=== PATIENT | male | born 1950 | race Caucasian/White ===

== ENCOUNTER 2024-03-11 23:40 | Inpatient (IN) | payer MEDICARE, SELFPAY ==
[2024-03-11] VITALS (8 sets, daily range): BP systolic 125–163; BP diastolic 84–91
[2024-03-11 17:34] LABS: % Basophils 0.3 % (0-2); % Eosinophils 0.8 % (0-6); % Immature Granulocytes 0.7 % (0-0.5); % Lymphocytes 9.6 % (20.5-51.1); % Monocytes 12.7 % (1.7-9.3); % Neutrophils 75.9 % (42.2-75.2); Absolute Basophils 0.1 10^3/uL (0-0.2); Absolute Eosinophils 0.1 10^3/uL (0-0.7); Absolute Immature Granulocytes 0.1 10^3/uL (0-0.05); Absolute Lymphocytes 1.4 10^3/uL (1.2-3.4); Absolute Monocytes 1.9 10^3/uL (0.1-0.6); Absolute Neutrophils 11.2 10^3/uL (1.4-6.5); Hematocrit 39.7 % (39.0-52.0); Hemoglobin 14.2 g/dL (13.0-18.0); Mean Corp Hgb Conc. 35.8 g/dL (33.0-37.0); Mean Corpuscular Hgb 30.2 pg (27.0-31.0); Mean Corpuscular Volume 84.5 fL (80.0-94.0); Mean Platelet Volume 8.9 fL (7.4-10.4); Nucleated Red Blood Cells % 0 % (-); Platelet Count 273 10^3/uL (130-400); Red Cell Dist. Width 13.8 % (11.5-14.5); White Blood Cell Count 14.8 10^3/uL (4.8-10.8)
[2024-03-11 17:48] LABS: ALT (SGPT) 28 U/L (0-50); AST (SGOT) 39 U/L (17-59); Albumin 4.6 g/dl (3.5-5.0); Alkaline Phosphatase 85 U/L (38-126); Blood Urea Nitrogen 24 mg/dl (9-20); Calcium 9.5 mg/dl (8.4-10.2); Carbon Dioxide 26 mmol/L (22-30); Chloride 87 mmol/L (98-107); Glucose 148 mg/dl (70-99); Potassium 4.3 mmol/L (3.5-5.1); Sodium 123 mmol/L (135-145); Total Bilirubin 0.8 mg/dl (0.2-1.3); Total Protein 7.5 g/dl (6.3-8.2); eGFR > 60.00
[2024-03-11 17:54] LABS: COVID-19 Antigen Negative (Negative)
--- NOTE | 2024-03-11 18:46 | ED.GENMED ---
History of Present Illness
<Mata Quintana MD, Resident - Last Filed: 03/11/24 22:56>
General
Chief Complaint: Weakness
Time Seen by Provider: 03/11/24 18:14
History of Present Illness
History of Present Illness:
83-year-old male with 2 history of schizoaffective disorder, mental retardation, hypertension? presented to the ED from an assisted living facility with c/o of weakness. Patient is noted to answer any questions. The only information that we have
is the patient was ambulating on his own without a walker or a cane but for the past couple days he has been using a cane. Patient also some crusting in the right eye with mild mucopurulent discharge. Patient's cousin is here and she states that
the patient had a fall yesterday, no head trauma no injury. She also states that he has a cough for past couple days.
Phy Exam
<Mata Quintana MD, Resident - Last Filed: 03/11/24 22:56>
Physical Exam
Physical Exam:
73-year-old obese male, mentally retarded, unable to answer questions.
Eye Exam
Eye Exam: PERRL
Conjunctival Changes: right: purulent discharge and local crusting
Cardiovascular Exam
Cardiovascular Exam: regular rate/rhythm and other
Pulmonary Exam
Pulmonary Exam: no respiratory distress, no crackles and other (course breath sounds on the left )
Gastrointestinal Exam
Gastrointestinal Exam: normal bowel sounds, non tender, soft and non distended
Psychiatric Exam
Psychiatric Exam: normal mood/affect and other
Course
<Mata Quintana MD, Resident - Last Filed: 03/11/24 22:56>
Orders/Labs/Results
Orders:
Orders
03/11/24 17:23
CR Chest - 2 Views Urgent
Comment:
Reason For Exam: wheezing
03/11/24 17:25
COVID-19 Antigen Urgent
Source: Nasal Swab
Complete Blood Count/With Diff Urgent
Comprehensive Metabolic Panel Urgent
Influenza A+B Rapid Molecular Urgent
BRIDGETTE Source: Nasal Swab
Specimen Description:
03/11/24 18:03
ECG [Electrocardiogram (*1)] Urgent
Reason for Study: Fatigue / Weakness
EKG- Treatment ONCE
03/11/24 19:33
Add On- LAB Urgent
Tests Added?: lactate
Lactic Acid Urgent
Blood Culture Urgent
BRIDGETTE Source: Blood/Venous
Specimen Description:
03/11/24 19:34
Cefepime HCl [Maxipime] 2,000 mg IV NOW STA
03/11/24 19:36
CT Head W/o Iv Contrast Urgent
Comment:
Reason For Exam: Fall
03/11/24 22:05
Urinalysis Urgent
Date Specimen was Collected: 03/11/24
Time Specimen was Collected: 18:43
Abnormal Lab Results
03/11/24
17:25
WBC 14.8 H 10^3/uL
(4.8-10.8)
Abs Immat Gran (auto) 0.1 H 10^3/uL
(0-0.05)
Absolute Neuts (auto) 11.2 H 10^3/uL
(1.4-6.5)
Absolute Monos (auto) 1.9 H 10^3/uL
(0.1-0.6)
Immature Gran % 0.7 H %
(0-0.5)
Neutrophils % 75.9 H %
(42.2-75.2)
Lymphocytes % 9.6 L %
(20.5-51.1)
Monocytes % 12.7 H %
(1.7-9.3)
Sodium 123 L mmol/L
(135-145)
Chloride 87 L mmol/L
(98-107)
BUN 24 H mg/dl
(9-20)
Glucose 148 H mg/dl
(70-99)
03/11/24 17:25
03/11/24 17:25
Vital Signs
Initial and Last Documented VS:
Initial Vital Signs
Temp Pulse Resp BP Pulse Ox
99.1 F 98 20 163/91 95
03/11/24 17:14 03/11/24 17:14 03/11/24 17:14 03/11/24 17:14 03/11/24 17:14
Last Documented Vital Signs
Temp Pulse Resp BP Pulse Ox
99.1 F 89 23 140/84 91
03/11/24 17:14 03/11/24 22:00 03/11/24 22:00 03/11/24 22:00 03/11/24 22:00
<Celia Bravo, DO - Last Filed: 03/11/24 19:36>
Orders/Labs/Results
Orders:
Orders
03/11/24 17:23
CR Chest - 2 Views Urgent
Comment:
Reason For Exam: wheezing
03/11/24 17:25
COVID-19 Antigen Urgent
Source: Nasal Swab
Complete Blood Count/With Diff Urgent
Comprehensive Metabolic Panel Urgent
Influenza A+B Rapid Molecular Urgent
BRIDGETTE Source: Nasal Swab
Specimen Description:
03/11/24 18:03
ECG [Electrocardiogram (*1)] Urgent
Reason for Study: Fatigue / Weakness
EKG- Treatment ONCE
03/11/24 19:33
Add On- LAB Urgent
Tests Added?: lactate
Lactic Acid Urgent
Blood Culture Urgent
BRIDGETTE Source: Blood/Venous
Specimen Description:
03/11/24 19:34
Cefepime HCl [Maxipime] 2,000 mg IV NOW STA
03/11/24 19:36
CT Head W/o Iv Contrast Urgent
Comment:
Reason For Exam: Fall
03/11/24 22:05
Urinalysis Urgent
Date Specimen was Collected: 03/11/24
Time Specimen was Collected: 18:43
Abnormal Lab Results
03/11/24
17:25
WBC 14.8 H 10^3/uL
(4.8-10.8)
Abs Immat Gran (auto) 0.1 H 10^3/uL
(0-0.05)
Absolute Neuts (auto) 11.2 H 10^3/uL
(1.4-6.5)
Absolute Monos (auto) 1.9 H 10^3/uL
(0.1-0.6)
Immature Gran % 0.7 H %
(0-0.5)
Neutrophils % 75.9 H %
(42.2-75.2)
Lymphocytes % 9.6 L %
(20.5-51.1)
Monocytes % 12.7 H %
(1.7-9.3)
Sodium 123 L mmol/L
(135-145)
Chloride 87 L mmol/L
(98-107)
BUN 24 H mg/dl
(9-20)
Glucose 148 H mg/dl
(70-99)
03/11/24 17:25
03/11/24 17:25
Vital Signs
Initial and Last Documented VS:
Initial Vital Signs
Temp Pulse Resp BP Pulse Ox
99.1 F 98 20 163/91 95
03/11/24 17:14 03/11/24 17:14 03/11/24 17:14 03/11/24 17:14 03/11/24 17:14
Last Documented Vital Signs
Temp Pulse Resp BP Pulse Ox
99.1 F 89 23 140/84 91
03/11/24 17:14 03/11/24 22:00 03/11/24 22:00 03/11/24 22:00 03/11/24 22:00
<Mata Quintana MD, Resident - Last Filed: 03/11/24 22:56>
*Critical Care Note
Total Time (30-74mins, 75-104mins- exclusive of procedures): Not Applicable
<Mata Quintana MD, Resident - Last Filed: 03/11/24 22:56>
Update Note
Update Note:
Laboratory analysis show hyponatremia, suspected from volume depletion and dehydration. IV fluids started
-Check UA, urine osmole, urine sodium
-Added chest x-ray, COVID, flu test.
- Chest x ray most suspicious of consolidation with fever and cough most suspicious of CAP.
- Starting patient on IV cefepime 2 g.
- Adding lactate and blood culture to r/o sepsis. --- negative
- Checking CT scan of head because patient had a fall yesterday to r/o hemorrhage.
- Chest x-ray suggestive of mild congestive heart failure
- Plan is to admit the patient due to symptomatic hyponatremia.
Head CT IMPRESSION:
No acute intracranial abnormality noted. Specifically, no acute intracranial hemorrhage. No skull fracture. Stable chronic findings.
CXR
FINDINGS:
Limited. Poor inspiratory effort. Nonstandard, AP projection which is slightly lordotic.
Moderate cardiomegaly, accentuated by described technical factors.
Generalized prominence of bronchovascular markings, suggested mild vascular congestion. Minor peribronchial thickening.
Findings likely reflect congestive heart failure. No focal interstitial or airspace opacity to indicate pneumonia.
Mild transverse prominence of the superior mediastinum, also likely related to technical factors.
No pneumothorax. No pleural effusion.
Asymmetric right shoulder arthritis.
IMPRESSION:
Limited. Poor inspiratory effort. Nonstandard, AP projection which is slightly lordotic. Suspect mild congestive heart failure.
ED Attending Note
<Mata Quintana MD, Resident - Last Filed: 03/11/24 22:56>
-
Portions of this chart may have been created with voice recognition software.� Occasional wrong word or��sound alike� substitutions may have occurred due to the inherent limitations of voice recognition software.
<Celia Bravo DO - Last Filed: 03/11/24 19:36>
ED Attending Note
Patient seen and examined by attending physician: Yes
I performed the substantive portion of visit, reviewed & personally made and approve the management plan that is documented in note by myself or RAFA.: Yes
I performed a history and physical exam of patient and discussed management with resident, I reviewed resident's note and agree with documented findings and plan of care.: Yes
ED Attending Note:
Patient seen and evaluated at bedside, 73-year-old male with severe intellectual disability, nonverbal, presenting to the emergency department for weakness and lethargy. Patient arrives from a group facility. Patient's power of state's attorney, cousin
later arrived to the hospital to give history. Patient reportedly fell yesterday without suspected injury. Today, patient increasingly lethargic, seemed flushed. They checked his temperature, 101. Unclear if he was given an antipyretic. Patient
usually ambulates unassisted, however required a cane to ambulate today. Patient was also hypertensive. No additional history obtained by patient given his chronic medical history. Vital signs significant for mild hypertension.
On exam, patient is resting comfortably, no acute distress. Benign cardiac exam. On pulmonary exam, rhonchorous breath sounds, wet cough. No tenderness to abdomen. No physical signs of trauma, no deformity or swelling to the extremities. No
elicited tenderness to the neck. Cousin at bedside reports that he appears to be at his baseline mental status. In the setting of unwitnessed fall with reported lethargy today, will screen with CT brain. Laboratory analysis has been sent on
patient, show hyponatremia, suspected from volume depletion and dehydration. IV fluids started. Could be contributing to weakness. In addition, patient with leukocytosis. Chest x-ray obtained, shows concern for pneumonia. With leukocytosis and
a source of infection, will send lactic acid to rule out sepsis. Blood pressure remains stable. Will order a blood culture and start on antibiotics. Plan for admission given hyponatremia with pneumonia. COVID and influenza negative.
Discharge Plan
Departure
Patient Disposition: Admit
Date of Disposition: 03/11/24
Time of Disposition: 22:49
Presentation/result/management discussed w/ accepting MD/DO: Hospitalist
Patient with high blood pressure during this ER visit?: Yes
Discharge Problem:
Acute hyponatremia
Prescriptions:
No Action
losartan [Cozaar] 100 MG tablet
100 mg PO DAILY
amlodipine 10 MG tablet
10 mg PO QPM
metoprolol tartrate 50 MG tablet
50 mg PO BID
finasteride 5 MG tablet
5 mg PO QPM
acetaminophen [Tylenol] 325 mg Tablet
650 mg PO Q4HPRN PRN (Reason: mild pain)
diphenoxylate-atropine [Lomotil] 2.5-0.025 mg Tablet
1 tab PO QIDPRN PRN (Reason: diarrhea)
guaifenesin [Robafen] 100 mg/5 mL Liquid
100 mg PO Q4HPRN PRN (Reason: cough)
triamcinolone acetonide 0.1 % Cream
1 applic TOPICAL BIDPRN PRN (Reason: hand eczema)
levothyroxine [Synthroid] 25 mcg Tablet
25 mcg PO DAILY
ibuprofen 200 mg Tablet
400 mg PO Q6HPRN PRN (Reason: mild pain)
Debrox 6.5 % Drops
4 drp OTIC (EAR) MOWEFR@1999
ketoconazole 2 % Cream
1 applic TOPICAL BID
Referrals:
UNKNOWN - PT DOES,NOT KNOW [Family Provider] -
Interventions
Interventions:
*Risk Screen - Suicide Last Done: 03/11/24 17:14
*General Assessment Last Done: 03/11/24 17:14
*Neglect/Abuse Screening Last Done: 03/11/24 17:14
ED- Fall Risk Assessment Last Done: 03/11/24 18:03
ED- Cardiac Assessment Last Done: 03/11/24 18:03
ED- Neurological Assessment Last Done: 03/11/24 18:03
ED- Pulmonary Assessment Last Done: 03/11/24 18:03
Discharge Date and Time
Print Language: ALBANIAN
[2024-03-11] MEDS: MAXIPIME 2000 MG IV (19:47)
[2024-03-11 20:00] LABS: Lactic Acid 0.8 mmol/L (0.7-2.0)
--- NOTE | 2024-03-11 23:36 | ED.GENMED ---
History of Present Illness
General
Chief Complaint: Weakness
Time Seen by Provider: 03/11/24 18:14
Course
Orders/Labs/Results
Orders:
Orders
03/11/24 17:23
CR Chest - 2 Views Urgent
Comment:
Reason For Exam: wheezing
03/11/24 17:25
COVID-19 Antigen Urgent
Source: Nasal Swab
Complete Blood Count/With Diff Urgent
Comprehensive Metabolic Panel Urgent
Serum Osmolality Urgent
Comment: ADD ON
Influenza A+B Rapid Molecular Urgent
BRIDGETTE Source: Nasal Swab
Specimen Description:
03/11/24 18:03
ECG [Electrocardiogram (*1)] Urgent
Reason for Study: Fatigue / Weakness
EKG- Treatment ONCE
03/11/24 19:33
Add On- LAB Urgent
Tests Added?: lactate
Lactic Acid Urgent
Blood Culture Urgent
BRIDGETTE Source: Blood/Venous
Specimen Description:
03/11/24 19:34
Cefepime HCl [Maxipime] 2,000 mg IV NOW STA
03/11/24 19:36
CT Head W/o Iv Contrast Urgent
Comment:
Reason For Exam: Fall
03/11/24 22:05
Urinalysis Urgent
Date Specimen was Collected: 03/11/24
Time Specimen was Collected: 18:43
03/11/24 23:00
Add On- LAB Urgent
Tests Added?: serum osmo
Urine Osmolality Random [Osmolality, Random Urine] Urgent
Urine Sodium Urgent
03/11/24 23:24
NT-proBNP Urgent
Procalcitonin Urgent
PCT Algorithmm Indication: Sepsis
03/11/24 23:27
Add On- LAB Urgent
Tests Added?: BNP
Abnormal Lab Results
03/11/24
17:25
WBC 14.8 H 10^3/uL
(4.8-10.8)
Abs Immat Gran (auto) 0.1 H 10^3/uL
(0-0.05)
Absolute Neuts (auto) 11.2 H 10^3/uL
(1.4-6.5)
Absolute Monos (auto) 1.9 H 10^3/uL
(0.1-0.6)
Immature Gran % 0.7 H %
(0-0.5)
Neutrophils % 75.9 H %
(42.2-75.2)
Lymphocytes % 9.6 L %
(20.5-51.1)
Monocytes % 12.7 H %
(1.7-9.3)
Sodium 123 L mmol/L
(135-145)
Chloride 87 L mmol/L
(98-107)
BUN 24 H mg/dl
(9-20)
Glucose 148 H mg/dl
(70-99)
03/11/24 17:25
03/11/24 17:25
Vital Signs
Initial and Last Documented VS:
Initial Vital Signs
Temp Pulse Resp BP Pulse Ox
99.1 F 98 20 163/91 95
03/11/24 17:14 03/11/24 17:14 03/11/24 17:14 03/11/24 17:14 03/11/24 17:14
Last Documented Vital Signs
Temp Pulse Resp BP Pulse Ox
99.1 F 89 23 140/84 91
03/11/24 17:14 03/11/24 22:00 03/11/24 22:00 03/11/24 22:00 03/11/24 22:00
ED Attending Note
-
Portions of this chart may have been created with voice recognition software.� Occasional wrong word or��sound alike� substitutions may have occurred due to the inherent limitations of voice recognition software.
Discharge Plan
Departure
Patient Disposition: Admit
Date of Disposition: 03/11/24
Time of Disposition: 22:49
Presentation/result/management discussed w/ accepting MD/DO: Hospitalist
Patient with high blood pressure during this ER visit?: Yes
Discharge Problem:
Acute hyponatremia
Prescriptions:
No Action
losartan [Cozaar] 100 MG tablet
100 mg PO DAILY
amlodipine 10 MG tablet
10 mg PO QPM
metoprolol tartrate 50 MG tablet
50 mg PO BID
finasteride 5 MG tablet
5 mg PO QPM
acetaminophen [Tylenol] 325 mg Tablet
650 mg PO Q4HPRN PRN (Reason: mild pain)
diphenoxylate-atropine [Lomotil] 2.5-0.025 mg Tablet
1 tab PO QIDPRN PRN (Reason: diarrhea)
guaifenesin [Robafen] 100 mg/5 mL Liquid
100 mg PO Q4HPRN PRN (Reason: cough)
triamcinolone acetonide 0.1 % Cream
1 applic TOPICAL BIDPRN PRN (Reason: hand eczema)
levothyroxine [Synthroid] 25 mcg Tablet
25 mcg PO DAILY
ibuprofen 200 mg Tablet
400 mg PO Q6HPRN PRN (Reason: mild pain)
Debrox 6.5 % Drops
4 drp OTIC (EAR) MOWEFR@1999
ketoconazole 2 % Cream
1 applic TOPICAL BID
Referrals:
UNKNOWN - PT DOES,NOT KNOW [Family Provider] -
Interventions
Interventions:
*Risk Screen - Suicide Last Done: 03/11/24 17:14
*General Assessment Last Done: 03/11/24 17:14
*Neglect/Abuse Screening Last Done: 03/11/24 17:14
ED- Fall Risk Assessment Last Done: 03/11/24 18:03
ED- Cardiac Assessment Last Done: 03/11/24 18:03
ED- Neurological Assessment Last Done: 03/11/24 18:03
ED- Pulmonary Assessment Last Done: 03/11/24 18:03
Discharge Date and Time
Print Language: GREEK
--- NOTE | 2024-03-11 23:50 | HPS.HSE ---
Addendum entered and electronically signed by Ashlyn Vasquez DO 03/12/24 00:28:
The patient is seen and examined. I have reviewed the patient with Katherine, and agree with her history and physical, assessment, and plan of care as per below. The patient has intellectual disability, he is verbal, and answers questions but does not
recall his history and does not say he has any complaints. He [facility], aw SOB, cough, and generalized weakness.
VSS/AF here, Respiratory status is stable at the time of this examination.
HEENT- conjunctival exudate right eye
Lungs CTA anteriorly b/l
CV reg and mild tachy at 99, b/l LE trace edema, unable to assess JVD nor hepatojugular reflux due to obesity, neck
Neuro no focal deficits
Abd distended, non-tender, no peritoneal signs
Labs reviewed as per below
Na 123
Plan of care as per below
Concern is for Community acquired pneumonia, bacterial pneumonia with systemic inflammatory response.
No known hx of CHF in our system
Plan is to treat infection, add IVF, awaiting urine studies, repeat Na at 4 am, Nephro Cx, blood and sputum cx pending, check a pro-BNP and procalcitonin.
Original Note:
Family Physician
-
Family Physician: NOT KNOW UNKNOWN - PT DOES
Chief Complaint
-
Weakness
History of Present Illness
Patient is a 73 y/o male past medical history of hypertension, BPH, schizoaffective disorder, and moderate intellectual disability who presents with weakness. Patient is a limited historian. He arrives from a [facility] after he was noted to be
more weak than usual and had a temp of 100F. Family was originally present in ED and reported a cough for the past few days. Unfortunately family was not present for my evaluation
Medical History
Past Medical History
Past Medical History: Reports Other
Additional Past Medical History:
Essential Hypertension
BPH
Schizoaffective Disorder
Moderate Intellectual Disability
Past Surgical History: Reports None
Social History
Unable to obtain full social history at this time due to: Other
Living: Other (Longterm)
Family History
Family History: Not pertinent
Allergies / Home Medications
Allergies reflects when Allergies were last updated in [facility].
Home Medications with original date entered in [facility]
Allergy/Medication List:
Allergies
Allergy/AdvReac Type Severity Reaction Status Date / Time
No Known Allergies Allergy Verified 03/11/24 17:13
Home Medications
amlodipine 10 mg tablet 10 mg PO QPM 12/15/21
finasteride 5 mg tablet 5 mg PO QPM 12/15/21
losartan 100 mg tablet (Cozaar) 100 mg PO DAILY 12/15/21
metoprolol tartrate 50 mg tablet 50 mg PO BID 12/15/21
acetaminophen 325 mg tablet (Tylenol) 650 mg PO Q4HPRN PRN mild pain 03/11/24
carbamide peroxide 6.5 % ear drops (Debrox) 4 drp otic (ear) MOWEFR@2000 03/11/24
diphenoxylate-atropine 2.5 mg-0.025 mg tablet (Lomotil) 1 tab PO QIDPRN PRN diarrhea 03/11/24
guaifenesin 100 mg/5 mL oral liquid (Robafen) 100 mg PO Q4HPRN PRN cough 03/11/24
ibuprofen 200 mg tablet 400 mg PO Q6HPRN PRN mild pain 03/11/24
ketoconazole 2 % topical cream 1 applic topical BID both feet 03/11/24
levothyroxine 25 mcg tablet (Synthroid) 25 mcg PO DAILY 03/11/24
triamcinolone acetonide 0.1 % topical cream 1 applic topical BIDPRN PRN hand eczema 03/11/24
Review of Systems
-
A 12 point ROS was completed and negative except as noted: Yes
Constitutional: Reports Fever; Denies Chills
Respiratory: Reports Cough and Trouble Breathing
Cardiac: Denies Chest Pain or Palpitations
Abdomen/GI: Denies Abdominal Pain, Nausea, Vomiting, Diarrhea or Constipated
Physical Exam
Vital Signs
Vital Signs
Temp Pulse Resp BP Pulse Ox
99.1 F 101 26 157/86 92
03/11/24 17:14 03/11/24 23:37 03/11/24 23:37 03/11/24 23:37 03/11/24 23:00
Physical Exam
General: Comfortable and Conversant
HEENT: Anicteric and Moist mucous membranes
Respiratory: Non Labored Respirations and Other (Poor Inspiratory Effort)
Cardiac: S1/S2, Regular Rhythm and Tachycardia (Slightly)
GI: Soft, Non Tender and Other (Protuberant)
Musculoskeletal: No Clubbing, No Cyanosis and Other (Trace Non-Pitting Edema)
Skin: Warm and Dry
Neuro: Awake, Alert, Oriented and Nonfocal/grossly intact
Laboratory Results
-
03/11/24 17:25
03/11/24 17:25
Laboratory Results
Lactic Acid 0.8 mmol/L (0.7-2.0) 03/11/24 19:33
Total Bilirubin 0.8 mg/dl (0.2-1.3) 03/11/24 17:25
AST 39 U/L (17-59) 03/11/24 17:25
ALT 28 U/L (0-50) 03/11/24 17:25
Alkaline Phosphatase 85 U/L (38-126) 03/11/24 17:25
Data Reviewed
-
Diagnostic Radiology: Report Reviewed by me
Lab Data: Labs Reviewed by me
Impression/Plan
-
Sepsis secondary to possible pneumonia
-Continue empiric ceftriaxone and doxycycline
-Check procalcitonin
-Await urinalysis
Hyponatremia
-Check BNP, Urine Sodium and Urine Osmo
-Give IVFs overnight in setting of sepsis
-Recheck labs in AM
Conjunctivitis
-Start erythromycin ointment
Essential Hypertension
-Continue amlodipine, metoprolol and losartan
BPH
-Continue Proscar
Schizoaffective Disorder
-Appears patient was previously on Seroquel, but no longer
-Monitor for mood/behavior changes during hospitalization
DVT proph: Lovenox
Code Status: Full Code
[2024-03-12] VITALS (10 sets, daily range): BP systolic 127–158; BP diastolic 74–94; PULSE 88; O2SAT 95; BMI 34.5
[2024-03-12 00:05] LABS: Osmolality Serum 263 mOsm/kg (275-300)
[2024-03-12] MEDS: NSS 1000 IV (00:23)
[2024-03-12] MEDS: LOPRESSOR 50 MG PO ×3 (00:30→20:07)
[2024-03-12 00:35] LABS: Urine Albumin 2+ (Neg - Trace); Urine Bilirubin Negative (Negative); Urine Character Clear (Clear); Urine Color Yellow; Urine Glucose Negative (Negative); Urine Ketone Trace (Negative); Urine Leukocyte Negative (Negative); Urine Nitrite Negative (Negative); Urine Occult Blood 1+ (Negative); Urine Specific Gravity 1.015 (<1.030); Urine Urobilinogen Negative (Neg - 1+); Urine pH 6.5 (5.0-9.0)
[2024-03-12 00:39] LABS: Osmolality Urine 499 mOsm/kg (300-900)
[2024-03-12 00:50] LABS: Urine Bacteria Few (Negative); Urine Sperm Seen; Urine White Cell 0-2 /HPF (0-5)
[2024-03-12 00:52] LABS: NT-proBNP 827 pg/ml
[2024-03-12 01:07] LABS: Procalcitonin 0.08 ng/ml (0.0-0.25)
[2024-03-12 01:49] LABS: Urine Sodium 50 mmol/L (30-90)
--- NOTE | 2024-03-12 02:00 | PTCARENOTE ---
Pt arrived to unit from ED and was a pullover assist from stretcher into bed. Pt is AAOx1 to self, no complaints of pain at this time. Pt given call toro but remains confused, bed alarm in place. BP on admission 158/94, HR 91, 93% on room air and
98.3F, respirations 22.
--- NOTE | 2024-03-12 04:31 | PTCARENOTE ---
Pt on a bed alarm and standing at bedside to urinate. Pt urinated on floor and was redirected back into bed and linens changed. Med Sitter now in place, bed in lowest position and bed alarm remains in place.
[2024-03-12] MEDS: SYNTHROID 25 MCG PO (06:02)
[2024-03-12 08:07] LABS: Hematocrit 36.6 % (39.0-52.0); Mean Corp Hgb Conc. 35.5 g/dL (33.0-37.0); Mean Corpuscular Hgb 30.1 pg (27.0-31.0); Mean Corpuscular Volume 84.7 fL (80.0-94.0); Mean Platelet Volume 9.3 fL (7.4-10.4); Platelet Count 261 10^3/uL (130-400); Red Blood Cell Count 4.32 10^6/uL (4.70-6.10); Red Cell Dist. Width 13.7 % (11.5-14.5); White Blood Cell Count 11.7 10^3/uL (4.8-10.8)
[2024-03-12] MEDS: ERYTHROMYCIN 0.5% OPHTHALMIC OINTMENT 1 APPLIC OPHTH ×4 (08:53→22:42)
[2024-03-12] MEDS: ROCEPHIN 1000 MG IV (08:54)
[2024-03-12] MEDS: STERILE WATER FOR INJECTION 10 ML IV (08:54)
[2024-03-12 08:55] LABS: Blood Urea Nitrogen 18 mg/dl (9-20); Calcium 8.3 mg/dl (8.4-10.2); Carbon Dioxide 22 mmol/L (22-30); Chloride 94 mmol/L (98-107); Estimated Creatinine Clearance 114 ml/min; Glucose 114 mg/dl (70-99); Potassium 3.8 mmol/L (3.5-5.1); Sodium 126 mmol/L (135-145); eGFR > 60.00
[2024-03-12] MEDS: COZAAR 100 MG PO (08:56)
[2024-03-12] MEDS: VIBRAMYCIN 100 MG PO ×2 (08:56→20:07)
--- NOTE | 2024-03-12 11:14 | W.CON.NEPH ---
Consultation
-
Date/Time Consultation Requested: 03/12/24 1:34AM
Date/Time Consultation Performed: 03/12/24 11:14AM
Requesting Provider: Katherine Leal
Performing Provider: Esther Hodge
Reason for Consultation: hyponatremia
Medical History
-
Chief Complaint: hyponatremia
History of Present Illness:
Mr. Lucero is a 73 YOM with PMH of intellectual disability, HTN, BPH, schizoaffective disorder who presents from his senior living with a temperature and weakness. History is obtained from chart review as the patient is not a good narrator. Apparently,
he was noted to have a mild fever in the ER as well. There was some concern for cough as well. Patient has no complaints today, states that he feels well.
Past Medical History
Essential Hypertension
BPH
Schizoaffective Disorder
Moderate Intellectual Disability
Past Medical History: Other
Past Surgical History: None
Social History
unable to obtain full social history due to disability
Living: Other (Alf)
Family History
Family History: Not Pertinent
Allergies / Home Medications
Allergy/AdvReac Type Severity Reaction Status Date / Time
No Known Allergies Allergy Verified 03/11/24 17:13
�Medication �Instructions �Recorded �Confirmed �Type
amlodipine 10 mg tablet 10 mg PO QPM Blood Pressure 12/15/21 03/11/24 History
finasteride 5 mg tablet 5 mg PO QPM Urinary Issue 12/15/21 03/11/24 History
losartan 100 mg tablet (Cozaar) 100 mg PO DAILY Blood Pressure 12/15/21 03/11/24 History
metoprolol tartrate 50 mg tablet 50 mg PO BID Blood Pressure 12/15/21 03/11/24 History
acetaminophen 325 mg tablet 650 mg PO Q4HPRN PRN mild pain 03/11/24 03/11/24 History
(Tylenol)
carbamide peroxide 6.5 % ear drops 4 drp otic (ear) [id number]@[id number]/11/24 03/11/24 History
(Debrox)
diphenoxylate-atropine 2.5 1 tab PO QIDPRN PRN diarrhea 03/11/24 03/11/24 History
mg-0.025 mg tablet (Lomotil)
guaifenesin 100 mg/5 mL oral 100 mg PO Q4HPRN PRN cough 03/11/24 03/11/24 History
liquid (Robafen)
ibuprofen 200 mg tablet 400 mg PO Q6HPRN PRN mild pain 03/11/24 03/11/24 History
ketoconazole 2 % topical cream 1 applic topical BID both feet 03/11/24 03/11/24 History
levothyroxine 25 mcg tablet 25 mcg PO DAILY Thyroid 03/11/24 03/11/24 History
(Synthroid)
triamcinolone acetonide 0.1 % 1 applic topical BIDPRN PRN hand 03/11/24 03/11/24 History
topical cream eczema
Review of Systems
-
Unable to obtain full review of systems at this time due to: Other (intellectual disability)
History Source: Patient
All other systems: Negative unless noted
Physical Exam
Vital Signs
Vital Signs
Temp Pulse Resp BP Pulse Ox
97.5 F 84 17 132/77 96
03/12/24 10:48 03/12/24 10:48 03/12/24 10:48 03/12/24 10:48 03/12/24 10:48
Lab Results
WBC 11.7 10^3/uL (4.8-10.8) H 03/12/24 07:23
RBC 4.32 10^6/uL (4.70-6.10) L 03/12/24 07:23
Hgb 13.0 g/dL (13.0-18.0) 03/12/24 07:23
Hct 36.6 % (39.0-52.0) L 03/12/24 07:23
Plt Count 261 10^3/uL (130-400) 03/12/24 07:23
Sodium 126 mmol/L (135-145) L 03/12/24 07:23
Potassium 3.8 mmol/L (3.5-5.1) 03/12/24 07:23
Chloride 94 mmol/L (98-107) L 03/12/24 07:23
Carbon Dioxide 22 mmol/L (22-30) 03/12/24 07:23
BUN 18 mg/dl (9-20) 03/12/24 07:23
Creatinine 0.6 mg/dL (0.7-1.3) L 03/12/24 07:23
eGFR > 60.00 03/12/24 07:23
Glucose 114 mg/dl (70-99) H 03/12/24 07:23
Calcium 8.3 mg/dl (8.4-10.2) L 03/12/24 07:23
Gia-Y-Gmcmjpnfqmz Pept 827 pg/ml 03/12/24 00:17
Albumin 4.6 g/dl (3.5-5.0) 03/11/24 17:25
Physical Exam
General: Awake, Alert, Oriented, No Distress and Nontoxic
HEENT: PERRL, EOMI, Anicteric, Ear/Nose Intact, Hearing Normal, Oropharynx Clear/Moist, Dentition Intact, Facial Symmetry, Neck Supple, Trachea Midline, No JVD, No Thyromegaly and Other (red conjunctiva)
Respiratory: Normal Excursion, Nonlabored Respirations and Other (coarse breath sounds bilaterally)
Cardiac: S1/S2, Regular Rate/Rhythm and No Edema
Breast: N/A
Abdomen: Soft, Nontender, Nondistended, Normal Bowel Sounds and No Hepatosplenomegaly
Rectal: Deferred by Provider
Genito-urinary: No Costovertebral Tender
Musculoskeletal: No Clubbing, No Cyanosis and No Edema
Skin: No Rash, Warm, Dry, No Clubbing, No Cyanosis, Normal Turgor and No Bruising
Neuro: Nonfocal/Grossly Intact and Other (I am assuming this is his baseline)
Hematologic/Lymphatic: No Cervical Lymphadenopathy
Psych: Mood/afflect pleasant and Appropriate
Data Reviewed
-
Radiology: Image Personally Visualized and interpreted (CXR on 03/11: LLL PNA?)
Labs: Labs Reviewed by me
Old Records: Reviewed
Assessment/Plan
-
Assessment:
PNA
Sepsis
hyponatremia
Conjunctivitis
HTN
BPH
Schizoaffective disorder
Plan:
- patient being empirically treated for PNA with ctx and doxycycline
- Uosm 499, Jez 50 --> indicative of SIADH (likely in the setting of active PNA)
- currently, the patient is being given normal saline at 75cc/hr but Na improved to 126. if complete SIADH, would have expected a drop
- hold normal saline and transition to HTS. goal sodium >130 by tomorrow AM
--- NOTE | 2024-03-12 12:02 | W.PN.HOSP.TC ---
Addendum entered and electronically signed by Jesus Hernandez MD 03/12/24 13:18:
I discussed case with clinical pharmacist who recommended holding off on Vancomycin (at least until the repeat blood cultures come back), and also given the rapid diagnostics were negative for MSSA and MRSA, so positive blood culture is likely a
CoNS bacteria. Vancomycin will be discontinued.
Original Note:
Today's Communication/Plan
-
Blood cultures positive
Repeat blood cultures ordered, Vancomycin added
3% saline as per nephrology, evaluation appreciated
Assessment / Plan
Assessment / Plan
Physical Exam
General: Not in acute distress.
HEENT: Normocephalic.
Respiratory: Coarse breath sounds bilaterally
Cardiac: S1/S2, Regular Rate and Rhythm
GI: Soft, Non Tender and Other (Protuberant). Positive bowel sounds.
Musculoskeletal: No Cyanosis and Other (Trace Non-Pitting Edema)
Skin: Warm and Dry
Neuro: Awake, Alert, Oriented x1 (person)

Assessment/Plan
Sepsis secondary to possible pneumonia
Blood Cultures with Gram Positive Cocci in Clusters
-Continue empiric ceftriaxone and doxycycline
-Also repeat blood cultures given initially positive blood cultures
-Also added Vancomycin given preliminary blood culture results
-Procalcitonin low at 0.08
-Urinalysis showed some RBC's, and a few bacteria, otherwise not strongly suggestive of UTI
Hyponatremia
-Received IVFs
-Nephrology consulted, recommendations appreciated
-Now getting 3% Saline
-Recheck labs in AM
Conjunctivitis
-Erythromycin ointment
Essential Hypertension
-Continue amlodipine, metoprolol and losartan
BPH
-Continue Proscar
Schizoaffective Disorder
-Appears patient was previously on Seroquel, but no longer
-Monitor for mood/behavior changes during hospitalization
DVT prophylaxis: Lovenox
Code Status: Full Code
Anticipated Discharge: > 48 hours
Subjective/Interval History
-
Date of Service: March 12, 2024
Patient was seen and examined. He reported no new symptoms or complaints. Overnight, patient stood at bedside to urinate; he urinated on the floor and was redirected back into bed and linens changed. Med Sitter was put in place, bed placed in lowest
position and bed alarm remained in place.
Objective Data
-
Labs:
Laboratory Results
03/12/24
07:23
WBC 11.7 H
Hgb 13.0
Hct 36.6 L
Plt Count 261
Sodium 126 L
Potassium 3.8
Chloride 94 L
Carbon Dioxide 22
BUN 18
Creatinine 0.6 L
Glucose 114 H
Calcium 8.3 L
Vital Signs:
Vital Signs
Temp Pulse Resp BP Pulse Ox
97.5 F 84 17 132/77 96
03/12/24 10:48 03/12/24 10:48 03/12/24 10:48 03/12/24 10:48 03/12/24 10:48
I&O
03/11/24 03/12/24 03/13/24
06:59 06:59 06:59
Intake Total 420 / 420
Output Total 300 / 300
Balance -300 / -300 420 / 420
[2024-03-12] MEDS: SODIUM CHLORIDE 3% 250 IV (12:14)
--- NOTE | 2024-03-12 12:33 | CM ---
CM spoke with Marii Lema RN from [facility] (main #- [phone], nursing #- [phone], fax #- [phone]). Patient resides in [facility]. Per Marii, patient has been a resident since 2009. Marii reports
facility will need updated clinicals and PT/OT notes to review before patient can return to facility, reports they typically can not accept a discharge over the weekend. Marii requesting PT/OT to see patient, reports patient could likely benefit from
VN services. Per Marii, patient ambulates without a device but does tend to 'shuffle', patient has not had VN or SNF in past. Marii reports patient typically toilets independently, requires assistance for dressing, showering. Patient PCP [facility],
pharmacy used for new meds upon discharge would be [facility] in [place], otherwise uses [facility]. TT sent to Hospitalist requesting PT/OT. CM will continue to follow for all discharge planning needs.
Plan; return to [facility], will need clinicals sent to facility prior to discharge to ensure can accept patient back, watch for VN needs.
[facility]:
main #- [phone], nursing #- [phone], fax #- [phone])
[2024-03-12] MEDS: LOVENOX 40 MG SC (17:06)
[2024-03-12] MEDS: PROSCAR 5 MG PO (17:11)
[2024-03-12] MEDS: NORVASC 10 MG PO (17:11)
[2024-03-13] VITALS (8 sets, daily range): BP systolic 119–149; BP diastolic 74–95; PULSE 78–83; O2SAT 93–95; BMI 34.0
--- NOTE | 2024-03-13 03:08 | DOWNTIME ---
There was a [email or web address] Client [employer]ing Teacher Downtime on 03/13/2024 from 0100 to 03/13/2024 at 0255. Downtime documentation of patient's care, including medication administrations, has been reconciled in the electronic record per guidelines. Refer to the
patient's paper chart under the miscellaneous tab to see printed paper medication records and downtime forms.
[2024-03-13] MEDS: SYNTHROID 25 MCG PO (06:06)
[2024-03-13] MEDS: COZAAR PO (08:22)
[2024-03-13] MEDS: LOPRESSOR 50 MG PO ×2 (08:22→20:41)
[2024-03-13] MEDS: VIBRAMYCIN 100 MG PO ×2 (08:22→20:40)
[2024-03-13] MEDS: STERILE WATER FOR INJECTION 10 ML IV (08:23)
[2024-03-13] MEDS: ROCEPHIN 1000 MG IV (08:23)
[2024-03-13] MEDS: ERYTHROMYCIN 0.5% OPHTHALMIC OINTMENT 1 APPLIC OPHTH ×4 (08:23→22:11)
[2024-03-13 09:20] LABS: % Basophils 0.6 % (0-2); % Eosinophils 1.3 % (0-6); % Immature Granulocytes 0.6 % (0-0.5); % Lymphocytes 12.7 % (20.5-51.1); % Monocytes 11.7 % (1.7-9.3); % Neutrophils 73.1 % (42.2-75.2); Absolute Basophils 0.1 10^3/uL (0-0.2); Absolute Eosinophils 0.1 10^3/uL (0-0.7); Absolute Immature Granulocytes 0.1 10^3/uL (0-0.05); Absolute Lymphocytes 1.4 10^3/uL (1.2-3.4); Absolute Monocytes 1.3 10^3/uL (0.1-0.6); Absolute Neutrophils 7.9 10^3/uL (1.4-6.5); Hematocrit 38.8 % (39.0-52.0); Hemoglobin 13.8 g/dL (13.0-18.0); Mean Corp Hgb Conc. 35.6 g/dL (33.0-37.0); Mean Corpuscular Hgb 30.7 pg (27.0-31.0); Mean Corpuscular Volume 86.2 fL (80.0-94.0); Mean Platelet Volume 9.4 fL (7.4-10.4); Nucleated Red Blood Cells % 0 % (-); Platelet Count 279 10^3/uL (130-400); Red Cell Dist. Width 13.8 % (11.5-14.5); White Blood Cell Count 10.8 10^3/uL (4.8-10.8)
[2024-03-13 09:57] LABS: Blood Urea Nitrogen 15 mg/dl (9-20); Calcium 8.6 mg/dl (8.4-10.2); Carbon Dioxide 24 mmol/L (22-30); Chloride 95 mmol/L (98-107); Estimated Creatinine Clearance 113 ml/min; Glucose 108 mg/dl (70-99); Potassium 3.7 mmol/L (3.5-5.1); Sodium 128 mmol/L (135-145); eGFR > 60.00
--- NOTE | 2024-03-13 11:14 | W.PN.NEPH.PH ---
Today's Communication / Plan
-
FR
Assessment/Plan
-
Assessment:
PNA
Sepsis
hyponatremia
Conjunctivitis
HTN
BPH
Schizoaffective disorder
Plan:
fluid restriction
follow BMP
samsca
-
-
Date of Service: March 13, 2024
CC / HPI / ROS
-
Chief Complaint:
hyponatremia
History of Present Illness:
Na up to 128
BP stable
on abx for PNA
Review of Systems:
no CP/SOB
Labs
-
Labs:
WBC 10.8 10^3/uL (4.8-10.8) 03/13/24 08:34
RBC 4.50 10^6/uL (4.70-6.10) L 03/13/24 08:34
Hgb 13.8 g/dL (13.0-18.0) 03/13/24 08:34
Hct 38.8 % (39.0-52.0) L 03/13/24 08:34
Plt Count 279 10^3/uL (130-400) 03/13/24 08:34
Sodium 128 mmol/L (135-145) L 03/13/24 08:34
Potassium 3.7 mmol/L (3.5-5.1) 03/13/24 08:34
Chloride 95 mmol/L (98-107) L 03/13/24 08:34
Carbon Dioxide 24 mmol/L (22-30) 03/13/24 08:34
BUN 15 mg/dl (9-20) 03/13/24 08:34
Creatinine 0.6 mg/dL (0.7-1.3) L 03/13/24 08:34
eGFR > 60.00 03/13/24 08:34
Glucose 108 mg/dl (70-99) H 03/13/24 08:34
Calcium 8.6 mg/dl (8.4-10.2) 03/13/24 08:34
Dye-M-Lhfrjcvpdsd Pept 827 pg/ml 03/12/24 00:17
Albumin 4.6 g/dl (3.5-5.0) 03/11/24 17:25
Physical Exam
-
Vital Signs:
Vital Signs
Temp Pulse Resp BP Pulse Ox
97.7 F 96 16 119/85 93
03/13/24 07:00 03/13/24 07:00 03/13/24 07:00 03/13/24 07:00 03/13/24 07:00
Cardiovascular:: Regular rate and rhythm
Respiratory:: Bilateral: Coarse
Lung Excursion:: Normal
Abdomen:: Nontender and Soft
Bowel Sounds:: Normal
Extremity Edema:: None: Bilateral:
[2024-03-13] MEDS: SAMSCA 15 MG PO (12:21)
[2024-03-13] MEDS: LOVENOX 40 MG SC (17:14)
[2024-03-13] MEDS: PROSCAR 5 MG PO (17:14)
[2024-03-13] MEDS: NORVASC 10 MG PO (17:15)
--- NOTE | 2024-03-13 17:38 | W.PN.HOSP.TC ---
Today's Communication/Plan
-
Improving
Hyponatremia treatment and antibiotics
Assessment / Plan
Assessment / Plan
Physical Exam
General: Not in acute distress.
HEENT: Normocephalic.
Respiratory: Coarse breath sounds bilaterally
Cardiac: S1/S2, Regular Rate and Rhythm
GI: Soft, Non Tender and Other (Protuberant). Positive bowel sounds.
Musculoskeletal: No Cyanosis and Other (Trace Non-Pitting Edema)
Skin: Warm and Dry
Neuro: Awake, Alert, Oriented x1 (person)

Assessment/Plan
Sepsis secondary to possible pneumonia
Blood Cultures with CoNS -- suspected contamination
Leukocytosis - RESOLVED
-Continue empiric ceftriaxone and doxycycline
-Also repeat blood cultures given initially positive blood cultures
-Procalcitonin low at 0.08
-Urinalysis showed some RBC's, and a few bacteria, otherwise not strongly suggestive of UTI
Hyponatremia
-Nephrology consulted, recommendations appreciated
-PO Fluid Restriction
-Received 3% Saline
-Recheck labs in AM
Conjunctivitis
-Erythromycin ointment
Essential Hypertension
-Continue amlodipine, metoprolol and losartan
BPH
-Continue Proscar
Schizoaffective Disorder
-Appears patient was previously on Seroquel, but no longer
-Monitor for mood/behavior changes during hospitalization
DVT prophylaxis: Lovenox
Code Status: Full Code
I spoke to patient's family authorized contact Svetlana today at phone number [phone]. All questions and concerns were answered to satisfaction.
Anticipated Discharge: 24 - 48 hours
Subjective/Interval History
-
Date of Service: March 13, 2024
Patient was seen and examined. He denied any new symptoms or complaints.
Objective Data
-
Labs:
Laboratory Results
03/13/24
08:34
WBC 10.8
Hgb 13.8
Hct 38.8 L
Plt Count 279
Sodium 128 L
Potassium 3.7
Chloride 95 L
Carbon Dioxide 24
BUN 15
Creatinine 0.6 L
Glucose 108 H
Calcium 8.6
Vital Signs:
Vital Signs
Temp Pulse Resp BP Pulse Ox
97.7 F 82 20 137/74 95
03/13/24 15:27 03/13/24 15:27 03/13/24 15:27 03/13/24 15:27 03/13/24 15:27
I&O
03/12/24 03/13/24 03/14/24
06:59 06:59 06:59
Intake Total 1890 / 1890 100 / 100
Output Total 300 / 300 900 / 900
Balance -300 / -300 990 / 990 100 / 100
[2024-03-14 03:24] VITALS: BP 149/90
[2024-03-14 06:00] VITALS: BMI 33.3
[2024-03-14] MEDS: SYNTHROID 25 MCG PO (06:30)
[2024-03-14 07:15] VITALS: BP 157/89
[2024-03-14] MEDS: STERILE WATER FOR INJECTION 10 ML IV (08:02)
[2024-03-14] MEDS: ERYTHROMYCIN 0.5% OPHTHALMIC OINTMENT 1 APPLIC OPHTH ×4 (08:03→21:15)
[2024-03-14] MEDS: VIBRAMYCIN 100 MG PO ×2 (08:03→20:27)
[2024-03-14] MEDS: ROCEPHIN 1000 MG IV (08:03)
[2024-03-14] MEDS: LOPRESSOR 50 MG PO ×2 (08:03→20:27)
[2024-03-14] MEDS: COZAAR 100 MG PO (08:03)
[2024-03-14 09:24] LABS: % Basophils 0.6 % (0-2); % Eosinophils 1.8 % (0-6); % Immature Granulocytes 0.9 % (0-0.5); % Lymphocytes 13.4 % (20.5-51.1); % Monocytes 11.2 % (1.7-9.3); % Neutrophils 72.1 % (42.2-75.2); Absolute Basophils 0.1 10^3/uL (0-0.2); Absolute Eosinophils 0.2 10^3/uL (0-0.7); Absolute Immature Granulocytes 0.1 10^3/uL (0-0.05); Absolute Lymphocytes 1.3 10^3/uL (1.2-3.4); Absolute Monocytes 1.1 10^3/uL (0.1-0.6); Hematocrit 43.1 % (39.0-52.0); Mean Corp Hgb Conc. 34.8 g/dL (33.0-37.0); Mean Corpuscular Hgb 30.3 pg (27.0-31.0); Mean Corpuscular Volume 87.1 fL (80.0-94.0); Mean Platelet Volume 9.1 fL (7.4-10.4); Nucleated Red Blood Cells % 0 % (-); Platelet Count 314 10^3/uL (130-400); Red Blood Cell Count 4.95 10^6/uL (4.70-6.10); Red Cell Dist. Width 14.1 % (11.5-14.5); White Blood Cell Count 9.8 10^3/uL (4.8-10.8)
[2024-03-14 10:04] LABS: Blood Urea Nitrogen 16 mg/dl (9-20); Carbon Dioxide 25 mmol/L (22-30); Chloride 98 mmol/L (98-107); Estimated Creatinine Clearance 96 ml/min; Glucose 106 mg/dl (70-99); Potassium 3.9 mmol/L (3.5-5.1); Sodium 133 mmol/L (135-145); eGFR > 60.00
[2024-03-14 11:21] VITALS: BP 132/68
--- NOTE | 2024-03-14 12:29 | W.PN.HOSP.TC ---
Today's Communication/Plan
-
Switched to oral antibiotics
Check echo
Sodium improving
Anticipate discharge within the next 1 to 2 days
Assessment / Plan
Assessment / Plan
Physical Exam
General: Not in acute distress.
HEENT: Normocephalic.
Respiratory: CTAB
Cardiac: S1/S2, Regular Rate and Rhythm
GI: Soft, Non Tender and Other (Protuberant). Positive bowel sounds.
Musculoskeletal: No Cyanosis and Other (Trace Non-Pitting Edema)
Skin: Warm and Dry
Neuro: Awake, Alert, Oriented x1 (person)

Assessment/Plan
Sepsis secondary to possible pneumonia
Blood Cultures with CoNS -- suspected contamination
Leukocytosis - RESOLVED
-Continue doxycycline
-Completed Ceftriaxone
-Started Cefdinir 300 mg BID on 03/14/24
-Also repeat blood cultures given initially positive blood cultures -- negative growth to date
-Procalcitonin low at 0.08
-Urinalysis showed some RBC's, and a few bacteria, otherwise not strongly suggestive of UTI
Hyponatremia - IMPROVED
-Nephrology consulted, recommendations appreciated
-PO Fluid Restriction
-Received 3% Saline
-Recheck labs in AM
Suggestion of Mild Congestive Heart Failure on Chest X-ray
-Check echocardiogram
Conjunctivitis
-Erythromycin ointment
Essential Hypertension
-Continue amlodipine, metoprolol and losartan
BPH
-Continue Proscar
Schizoaffective Disorder
-Appears patient was previously on Seroquel, but no longer
-Monitor for mood/behavior changes during hospitalization
DVT prophylaxis: Lovenox
Code Status: Full Code
On 03/13/24, I spoke to patient's family authorized contact Svetlana today at phone number [phone]. All questions and concerns were answered to satisfaction.
Anticipated Discharge: 24 - 48 hours
Subjective/Interval History
-
Date of Service: March 14, 2024
Patient was seen and examined. He was eating breakfast and denied any new symptoms or complaints.
Objective Data
-
Labs:
Laboratory Results
03/14/24 03/14/24
08:38 08:48
WBC 9.8
Hgb 15.0
Hct 43.1
Plt Count 314
Sodium 133 L
Potassium 3.9
Chloride 98
Carbon Dioxide 25
BUN 16
Creatinine 0.7
Glucose 106 H
Calcium 9.0
Vital Signs:
Vital Signs
Temp Pulse Resp BP Pulse Ox
97.8 F 77 17 132/68 96
03/14/24 11:21 03/14/24 11:21 03/14/24 11:21 03/14/24 11:21 03/14/24 07:15
I&O
03/13/24 03/14/24 03/15/24
06:59 06:59 06:59
Intake Total 1890 / 1890 1420 / 1420
Output Total 900 / 900 2515 / 2515
Balance 990 / 990 -1095 / -1095
--- NOTE | 2024-03-14 12:41 | CM ---
Addendum entered by Yvonne Williamson 03/14/24 14:41:
Updated Marii from [facility] with clinicals and therapy notes.
Patient will need a s script for RW.
PT will issue RW prior to d/c.
Will need to fax clinicals and therapy notes to Marii Morely tomorrow for them to review prior to transfer.
Marii requested scripts be sent to [facility].
Per Marii, patient can be transported no later than 3 pm.
Ambulance transport requireed.
Marii would like home care with [facility].
Original Note:
Late enty for 03/13/24
Spoke with Marii from [facility] and provided update.
PT was recommending skilled rehab, she would prefer for patient to return to the senior living with services.
Patient continues on IV anbx and monitoring labs.
Plan: back to [facility].
--- NOTE | 2024-03-14 13:06 | W.PN.NEPH.PH ---
Today's Communication / Plan
-
follow BMP
Assessment/Plan
-
Assessment:
PNA
Sepsis
hyponatremia
Conjunctivitis
HTN
BPH
Schizoaffective disorder
Plan:
fluid restriction
follow BMP
no samsca today
-
-
Date of Service: March 14, 2024
CC / HPI / ROS
-
Chief Complaint:
hyponatremia
History of Present Illness:
Na up to [facility]
BP stable
on abx for PNA
Review of Systems:
no CP/SOB
Labs
-
Labs:
WBC 9.8 10^3/uL (4.8-10.8) 03/14/24 08:48
RBC 4.95 10^6/uL (4.70-6.10) 03/14/24 08:48
Hgb 15.0 g/dL (13.0-18.0) 03/14/24 08:48
Hct 43.1 % (39.0-52.0) 03/14/24 08:48
Plt Count 314 10^3/uL (130-400) 03/14/24 08:48
Sodium 133 mmol/L (135-145) L 03/14/24 08:38
Potassium 3.9 mmol/L (3.5-5.1) 03/14/24 08:38
Chloride 98 mmol/L (98-107) 03/14/24 08:38
Carbon Dioxide 25 mmol/L (22-30) 03/14/24 08:38
BUN 16 mg/dl (9-20) 03/14/24 08:38
Creatinine 0.7 mg/dL (0.7-1.3) 03/14/24 08:38
eGFR > 60.00 03/14/24 08:38
Glucose 106 mg/dl (70-99) H 03/14/24 08:38
Calcium 9.0 mg/dl (8.4-10.2) 03/14/24 08:38
Van-C-Ihjxbgzgydo Pept 827 pg/ml 03/12/24 00:17
Albumin 4.6 g/dl (3.5-5.0) 03/11/24 17:25
Physical Exam
-
Vital Signs:
Vital Signs
Temp Pulse Resp BP Pulse Ox
97.8 F 77 17 132/68 96
03/14/24 11:21 03/14/24 11:21 03/14/24 11:21 03/14/24 11:21 03/14/24 07:15
Cardiovascular:: Regular rate and rhythm
Respiratory:: Bilateral: Coarse
Lung Excursion:: Normal
Abdomen:: Nontender and Soft
Bowel Sounds:: Normal
Extremity Edema:: None: Bilateral:
[2024-03-14 15:00] VITALS: BP 130/84
[2024-03-14] MEDS: NORVASC 10 MG PO (17:44)
[2024-03-14] MEDS: PROSCAR 5 MG PO (17:44)
[2024-03-14] MEDS: LOVENOX 40 MG SC (17:44)
[2024-03-14 19:00] VITALS: BP 131/81
[2024-03-14] MEDS: OMNICEF 300 MG PO (20:28)
[2024-03-14 23:08] VITALS: BP 148/88
[2024-03-15 03:00] VITALS: BP 140/85
[2024-03-15 04:14] VITALS: BP 140/85
[2024-03-15 04:20] VITALS: BMI 32.5
[2024-03-15] MEDS: SYNTHROID 25 MCG PO (05:51)
[2024-03-15 07:45] VITALS: BP 151/88
[2024-03-15 09:43] LABS: Blood Urea Nitrogen 18 mg/dl (9-20); Calcium 8.9 mg/dl (8.4-10.2); Carbon Dioxide 27 mmol/L (22-30); Chloride 97 mmol/L (98-107); Estimated Creatinine Clearance 95 ml/min; Glucose 102 mg/dl (70-99); Potassium 3.7 mmol/L (3.5-5.1); Sodium 132 mmol/L (135-145); eGFR > 60.00
--- NOTE | 2024-03-15 10:34 | CM ---
Addendum entered by Yvonne Williamson 03/15/24 11:34:
[facility] will accept back today.
Marii aware of ambulance transport 3:15 pm.
MD updated re transport time.
Rolling walker to be issued by PT after they receive a script.
TT to MD requesting script.
[facility]
report# [phone]- Marii

[facility]

Addendum entered by Yvonne Williamson 03/15/24 11:10:
Medically cleared for d/c.
Administration at [facility] reviewing.
ambulance transport.
Original Note:
TC from Marii, from [facility] requesting updated labs, test, clinicals, meds, be faxed.
Faxed to: fax #- [phone]
Plan: back to [facility] when medically stable and approved by facility
Ambulance transport will be required.
[2024-03-15] MEDS: LOPRESSOR 50 MG PO (10:49)
[2024-03-15] MEDS: OMNICEF 300 MG PO (10:49)
[2024-03-15] MEDS: ERYTHROMYCIN 0.5% OPHTHALMIC OINTMENT 1 APPLIC OPHTH ×2 (10:49→13:06)
[2024-03-15] MEDS: COZAAR 100 MG PO (10:49)
[2024-03-15] MEDS: VIBRAMYCIN 100 MG PO (10:50)
--- NOTE | 2024-03-15 10:57 | W.PN.HOSP.TC ---
Addendum entered and electronically signed by Jesus Hernandez MD 03/15/24 18:16:
Congestive Heart Failure diagnosis doubtful
Original Note:
Today's Communication/Plan
-
Discharge today
Assessment / Plan
Assessment / Plan
Physical Exam
General: Not in acute distress.
HEENT: Normocephalic.
Respiratory: CTAB
Cardiac: S1/S2, Regular Rate and Rhythm
GI: Soft, Non Tender and Other (Protuberant). Positive bowel sounds.
Musculoskeletal: No Cyanosis and Other (Trace Non-Pitting Edema)
Skin: Warm and Dry
Neuro: Awake, Alert, Oriented x1 (person)

Echocardiogram Results (as per cardiology report)
CONCLUSIONS
Technically difficult study
Normal left ventricular size and systolic function. Left ventricular ejection
fraction visually estimated 55%
Trace mitral and tricuspid regurgitation
Estimated pulmonary artery pressure of 30-35 mmHg. Assuming a right atrial
pressure of 3 mmHg.
No prior study available for comparison

Assessment/Plan
Sepsis secondary to possible pneumonia
Blood Cultures with CoNS -- suspected contamination
Leukocytosis - RESOLVED
Hematuria
-Continue doxycycline 100 mg BID for 3 more doses
-Completed Ceftriaxone
-Started Cefdinir 300 mg BID on 03/14/24 -- discharge on 3 more doses of 300 mg
-Also repeat blood cultures given initially positive blood cultures -- negative growth to date
-Procalcitonin low at 0.08
-Urinalysis showed some RBC's, and a few bacteria, otherwise not strongly suggestive of UTI
-Urology follow-up on discharge given RBC's in urinalysis
Hyponatremia - IMPROVED
-Nephrology consulted, recommendations appreciated
-PO Fluid Restriction
-Received 3% Saline
-Recheck labs in AM
-Discussed case on March 15, 2024 with on-call cardroom drawing runner: can discharge with low sodium diet and with 48 ounces daily PO fluid restriction
-Recheck BMP within 1 week
Suggestion of Mild Congestive Heart Failure on Chest X-ray
-Echocardiogram noted
-Follow-up with cardiology
Conjunctivitis
-Erythromycin 0.5% ointment, 1 centimeter to both eyes until 03/19/24
Essential Hypertension
-Continue amlodipine, metoprolol and losartan
BPH
-Continue Proscar
Schizoaffective Disorder
-Appears patient was previously on Seroquel, but no longer
-Monitor for mood/behavior changes during hospitalization
Mild Congestive Heart Failure on Chest X-ray - Moderate cardiomegaly
As per radiologist's Chest X-Ray report: generalized prominence of bronchovascular markings, suggested mild vascular congestion and minor peribronchial thickening
Asymmetric right shoulder arthritis on Chest X-ray
CT Head Results as per radiologist's report: 'Moderate to large volume of patchy and confluent periventricular and subcortical white matter diminished attenuation. Also seen previously. 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
ischemic disease....Mild Atrophy'
DVT prophylaxis: Lovenox
Code Status: Full Code
On 03/13/24, I spoke to patient's family authorized contact Svetlana today at phone number [phone]. All questions and concerns were answered to satisfaction.
More than 30 minutes spent in discharge including
Final examination of the patient
Summarizing hospital stay
Instructions for continuing care to all relevant caregivers
Preparation of discharge records, prescriptions, and referral forms
Total time spent (in minutes): 38
Anticipated Discharge: Today
Subjective/Interval History
-
Date of Service: March 15, 2024
Patient was seen and examined. He was eating breakfast and denied any fever, chest pain, shortness of breath or any other complaints. He would be happy to be discharged today.
Objective Data
-
Labs:
Laboratory Results
03/15/24
07:42
Sodium 132 L
Potassium 3.7
Chloride 97 L
Carbon Dioxide 27
BUN 18
Creatinine 0.7
Glucose 102 H
Calcium 8.9
Vital Signs:
Vital Signs
Temp Pulse Resp BP Pulse Ox
98.7 F 87 17 151/88 97
03/15/24 07:45 03/15/24 07:45 03/15/24 07:45 03/15/24 07:45 03/15/24 07:45
I&O
03/14/24 03/15/24 03/16/24
06:59 06:59 06:59
Intake Total 1420 / 1420 1380 / 1380
Output Total 2515 / 2515 925 / 925
Balance -1095 / -1095 455 / 455
[2024-03-15 10:59] VITALS: BP 152/92
--- NOTE | 2024-03-15 13:59 | W.DS.TRANS ---
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
-
Discharge Instructions:
Discharge Diagnosis/Procedures Sepsis secondary to possible pneumonia
Blood Cultures with CoNS -- suspected
contamination
Leukocytosis - RESOLVED
Hematuria
Hyponatremia - IMPROVED
Suggestion of Mild Congestive Heart Failure on
Chest X-ray
Conjunctivitis
Essential Hypertension
Benign Prostatic Hyperplasia
Schizoaffective Disorder
Mild Congestive Heart Failure on Chest X-ray -
Moderate cardiomegaly
As per radiologist's Chest X-Ray report:
generalized prominence of bronchovascular
markings, suggested mild vascular congestion and
minor peribronchial thickening
Asymmetric right shoulder arthritis on Chest X-
ray
CT Head Results as per radiologist's report: '
Moderate to large volume of patchy and confluent
periventricular and subcortical white matter
diminished attenuation. Also seen previously.
Most consistent with chronic microvascular white
matter ischemic disease....Mild Atrophy'
Echocardiogram Results (as per cardiology
report)
CONCLUSIONS
Technically difficult study
Normal left ventricular size and systolic
function. Left ventricular ejection
fraction visually estimated 55%
Trace mitral and tricuspid regurgitation
Estimated pulmonary artery pressure of 30-35
mmHg. Assuming a right atrial
pressure of 3 mmHg.
No prior study available for comparison
Diet Restrict fluids to 48 oz,Low Sodium
Activity As tolerated
Driving Restrictions No driving
Blood Work Recheck CBC and BMP labwork by MondayMarch 18,
2023
Instructions:
Stand-Alone Forms:
Changes to Home Medications: Yes
Discharge Medications:
DC Medications w/original date entered in [employer]
amlodipine 10 mg tablet 10 mg PO QPM Blood Pressure 12/15/21
finasteride 5 mg tablet 5 mg PO QPM Urinary Issue 12/15/21
losartan 100 mg tablet (Cozaar) 100 mg PO DAILY Blood Pressure 12/15/21
metoprolol tartrate 50 mg tablet 50 mg PO BID Blood Pressure 12/15/21
acetaminophen 325 mg tablet (Tylenol) 650 mg PO Q4HPRN PRN mild pain 03/11/24
carbamide peroxide 6.5 % ear drops (Debrox) 4 drp otic (ear) MOWEFR@2000 03/11/24
diphenoxylate-atropine 2.5 mg-0.025 mg tablet (Lomotil) 1 tab PO QIDPRN PRN diarrhea 03/11/24
guaifenesin 100 mg/5 mL oral liquid (Robafen) 100 mg PO Q4HPRN PRN cough 03/11/24
ibuprofen 200 mg tablet 400 mg PO Q6HPRN PRN mild pain 03/11/24
ketoconazole 2 % topical cream 1 applic topical BID both feet 03/11/24
levothyroxine 25 mcg tablet (Synthroid) 25 mcg PO DAILY Thyroid 03/11/24
triamcinolone acetonide 0.1 % topical cream 1 applic topical BIDPRN PRN hand eczema 03/11/24
cefdinir 300 mg capsule 300 mg PO Q12 #3 caps 03/15/24
doxycycline hyclate 100 mg capsule 100 mg PO Q12 #3 caps 03/15/24
erythromycin 5 mg/gram (0.5 %) eye ointment 1 cm ophthalmic (eye) QID 4 days #3.5 grams 03/15/24
Home Medication Changes
Cefdinir, Doxycycline and Erythromycin Ointment are new medications.
Pending Results: Yes
Additional Pending Results:
Follow-up blood cultures from hospitalization
Total time spent discharging patient (in min): 38
[2024-03-15 14:01] VITALS: BP 157/82
--- NOTE | 2024-03-15 16:04 | PN.CDI ---
CDI
- -
CDI:
Physician Documentation Request
Admit Date: 03/11/24 23:40
Dear Doctor Mary,
Patient admitted 03/11 for sepsis secondary to possible pneumonia.
03/14 progress note states 'Suggestion of Mild Congestive Heart Failure on Chest X-ray- check echo'
03/14 echo concludes 'Technically difficult study. Normal left ventricular size and systolic function. Left ventricular ejection fraction visually estimated 55%. Trace mitral and tricuspid regurgitation. Estimated pulmonary artery pressure of 30-35
mmHg. Assuming a right atrial pressure of 3 mmHg. '
03/12 BNP 827
Patient does not appear to have received any diuretics nor do they have a listed history of heart failure .
Please clarify the following:
____ - Congestive heart failure was present. (Please specify type and acuity)
____ - Congestive heart failure was ruled out
____ - Congestive heart failure is still a likely, suspected, probable diagnosis (please list type and acuity)
____ - Other
Use of terms such as suspected, likely, concern for, or probable (associated with a specific diagnosis that is being evaluated, monitored, or treated as if it exists) are acceptable and can be coded in the inpatient setting, when documented at the
time of discharge.
Thank you,
Jesusita Hernandez RN, BSN
CDI Specialist
tiger text
Please use your independent medical judgment in providing your response.
== END 2024-03-15 16:11 | disposition home or self-care (01) | DRG 871 ==
LOC: 4 WEST ACU 23:40
PROVIDERS: Physician Assistant Medical; Specialist; ADMITTING PHYSICIAN Internal Medicine; ATTENDING PHYSICIAN Hospitalist; CONSULT PHYSICIAN Student in an Organized Health Care Education/Training Program; EMERGENCY PHYSICIAN Student in an Organized Health Care Education/Training Program
DX: A41.9 Sepsis, unspecified organism (principal); J18.9 Pneumonia, unspecified organism; E87.1 Hypo-osmolality and hyponatremia; F25.9 Schizoaffective disorder, unspecified; I08.1 Rheumatic disorders of both mitral and tricuspid valves; I10 Essential (primary) hypertension; N40.0 Benign prostatic hyperplasia without lower urinary tract symptoms; F71 Moderate intellectual disabilities; H10.9 Unspecified conjunctivitis; M19.011 Primary osteoarthritis, right shoulder; R31.9 Hematuria, unspecified; R93.1 Abnormal findings on diagnostic imaging of heart and coronary circulation; Z79.890 Hormone replacement therapy; Z79.899 Other long term (current) drug therapy
CPT/HCPCS: 70450; 71046; 80048; 80053; 81003; 81015; 83605; 83880; 83930; 83935; 84145; 84300; 85025; 85027; 87040; 87070; 87150; 87205; 87449; 87502; 87811; 87899; 93005; 93306; 96374; 97116; 97163; 97166; 97530; 99285

== ENCOUNTER 2024-03-15 20:33 | Observation (INO) | payer MEDICARE, SELFPAY ==
[2024-03-15 19:23] VITALS: BP 152/89
--- NOTE | 2024-03-15 19:52 | ED.GENMED ---
History of Present Illness
General
Chief Complaint: Weakness
Source: records and child care aide
Time Seen by Provider: 03/15/24 19:24
History of Present Illness
History of Present Illness:
73-year-old male with past medical history of developmental delay and schizoaffective disorder presenting to the emergency department via [facility] where patient is a long-term resident, was just discharged from
this hospital at 2:30 in the afternoon today, staff at the [facility] facility was concerned with continued weakness, shortness of breath and breathing difficulties, reportedly did not receive a discharge summary and were concerned that they would not
be able to care for the patient and that he needed more care than what their facility is capable of as they are not a medical facility and currently do not have a nurse on staff for the weekend to help care for the patient. Patient himself is
stating that he feels well at this time and is without any specific complaints. Based off of record review it appears patient was admitted for sepsis secondary to suspected pneumonia as well as hyponatremia deemed improved upon discharge.
Past History
Past History
ED Past Medical History: Hypothyroidism and Psychiatric
ED Past Surgical History: None
Social History
Tobacco: Non-smoker
Alcohol: None
Drug: None
Personal: Single
Living: assisted living
Review of Systems
Review of Systems
All Other Systems: ROS reviewed and negative except as documented in HPI and ROS
Phy Exam
Physical Exam
Physical Exam:
GENERAL: Alert , in no apparent distress, very pleasant
EYE: conjunctiva clear
NECK: Supple
ENT: o/p clr, mmm.
CARDIAC: Regular rate and rhythm
LUNGS: Clear breath sounds bilaterally, no acute respiratory distress, no wheezes/rales/rhonchi
Abdomen: Soft, nontender, nondistended
NEUROLOGICAL: Alert and oriented to self and place but not time, ambulated using walker
SKIN: Warm and dry, skin intact.
MUSCULOSKELETAL: well perfused.
PSYCH: Normal and appropriate interaction.
Scores
Heart Failure Risk
Heart Failure Risk Score: Not Applicable
Heart Score for Chest Pain Patients
STEMI patient?: Not applicable
Withdrawal Assessment of Alcohol
Withdrawal Assessment Completed?: Not applicable
Course
Orders/Labs/Results
Orders:
Orders
03/15/24 Dinner
Regular
At Your Request: Non-Participating
Does patient need a safe tray?: No
Fluid Restriction: 1440 mL/day (48 oz)
03/15/24 19:57
Complete Blood Count/With Diff Urgent
03/15/24 20:23
Admit/Transfer Patient As Directed
Co-Sign Provider:
Level of Care: Observation services
Assign to:: Medical/Surgical
Physician / Group: Hospitalist
Diagnosis: Ambulatory dysfunction
PRN Pain Medication Management As Directed
May give lesser potent ordered pain med per pt: Yes
preference::
Protocol:: Medication orders for pain may be administered in a
manner that supports deferring to patient preference
when the pt is:
- Requesting an ordered lesser potent pain medication.
Least to most potent pain medications are defined
as: acetaminophen < NSAID < tramadol < opioids
(morphine, oxycodone, hydromorphone).
- Requesting a lesser dose of the same medication IF
ORDERED.
- Requesting a less intrusive route of administration
if both routes are prescribed by the provider (PO <
IV).
03/15/24 20:24
Code Status As Directed
Resuscitation Status: Full Code
03/15/24 21:13
Acetaminophen [Tylenol] 650 mg PO Q4HPRN PRN
Bisacodyl [Dulcolax] 10 mg RECTAL [id number] PRN
Diphenoxylate / Atropine [Lomotil] 1 tablet PO QIDPRN PRN
Docusate W/Senna [Senokot-S] 1 tablet PO BIDPRN PRN
Guaifenesin Solution [Robitussin] 100 mg PO Q4HPRN PRN
Ibuprofen [Motrin] 400 mg PO Q6HPRN PRN
Polyethylene Glycol Powder [Miralax] 17 grams PO DAILYPRN PRN
Triamcinolone Cream [Aristocort/Triamcinolone 0.1% Cream] See Dose Instructions TOPICAL BIDPRN PRN
03/15/24 21:13
Case Management Consult ONCE
Case Management Consult: Discharge Planning
Activity As Directed
Activity Level: With Assistance
Vital Signs As Directed
Frequency: Per unit guidelines
Pulse Ox/spot Check [RESP] Routine
Quantity: 1
DX Deep Vein Thrombosis Video Routine
03/15/24 22:00
Erythromycin (Ilotycin) [Erythromycin 0.5% Ophthalmic Ointment] See Dose Instructions OPHTH QID
03/16/24 06:00
Levothyroxine [Synthroid] 25 mcg PO DAILY@0600
03/16/24 08:00
Cefdinir [Omnicef] 300 mg PO Q12
Doxycycline [Vibramycin] 100 mg PO Q12
Ketoconazole [Nizoral 2% Cream] See Dose Instructions TOPICAL BID
Losartan [Cozaar] 100 mg PO DAILY
Metoprolol [Lopressor] 50 mg PO BID
03/16/24 18:00
Amlodipine [Norvasc] 10 mg PO QPM
Enoxaparin Sodium [Lovenox] 40 mg SC QPM
Finasteride [Proscar] 5 mg PO QPM
03/18/24 20:00
Carbamide Peroxide [Debrox Ear Drops] 4 drop BOTH EARS MOWEFR@1999
Abnormal Lab Results
03/15/24
19:57
WBC 13.7 H 10^3/uL
(4.8-10.8)
Abs Immat Gran (auto) 0.1 H 10^3/uL
(0-0.05)
Absolute Neuts (auto) 10.3 H 10^3/uL
(1.4-6.5)
Absolute Monos (auto) 1.3 H 10^3/uL
(0.1-0.6)
Immature Gran % 0.8 H %
(0-0.5)
Lymphocytes % 12.3 L %
(20.5-51.1)
Monocytes % 9.6 H %
(1.7-9.3)
03/15/24 19:57
03/15/24 19:48
Vital Signs
Initial and Last Documented VS:
Initial Vital Signs
Temp Pulse Resp BP Pulse Ox
98.2 F 89 20 152/89 97
03/15/24 19:23 03/15/24 19:23 03/15/24 19:23 03/15/24 19:23 03/15/24 19:23
Last Documented Vital Signs
Temp Pulse Resp BP Pulse Ox
98.9 F 91 18 162/90 96
03/15/24 21:23 03/15/24 21:23 03/15/24 21:23 03/15/24 21:23 03/15/24 21:23
MDM/Problems Addressed
Differential Diagnosis Includes:
Recurring hyponatremia, less concern for infectious etiology, deconditioning secondary to hospitalization
MDM/Problems Addressed:
73-year-old male presenting back to the emergency to being discharged earlier this afternoon for evaluation of reported generalized weakness, respiratory difficulty and facility reportedly not feeling comfortable with continuing to care for the
patient as he is currently not at his baseline and thought he may need more advanced nursing care than what their facility can provide. We were able to ambulate the patient here in the ER with using a walker. Patient is in no acute respiratory
distress without any wheezing. His oxygen remained between 97 and 99% on room air. I attempted to contact patient's cousin who is listed as next of kin and person to notify however was unable to get in contact with the cousin. I spoke to the
finance business manager at patient's living facility who is not present at time patient was sent back to the ER but had only spoken to nursing staff. [facility] stating patient is not allowed to come back to the facility tonight as they do not have the staff equipped
to care for the patient. Staff requesting to be contacted tomorrow to help with disposition planning. Given that patient has no other place to be disposition to will admit tonight for further monitoring.
Chronic conditions affecting care: Psychiatric illness
Acute Exacerbation and/or Progression of Chronic Illness: Psychiatric illness
*Pulse Oximetry
Patient hypoxic: no
*Critical Care Note
Total Time (30-74mins, 75-104mins- exclusive of procedures): Not Applicable
Data Reviewed
Review of Other/Old Records Reveals: Labs, Records and Discharge Summary
Source: patient and records
Patient Management
Discussion with other providers: Hospitalist
Escalation/DeEscalation of care consider admission/obs:
Hospitalist team except for continued evaluation and treatment
ED Attending Note
-
Portions of this chart may have been created with voice recognition software.� Occasional wrong word or��sound alike� substitutions may have occurred due to the inherent limitations of voice recognition software.
Discharge Plan
Departure
Patient Disposition: Admit
Date of Disposition: 03/15/24
Time of Disposition: 19:52
Presentation/result/management discussed w/ accepting MD/DO: Hospitalist
Discharge Problem:
Generalized weakness
Interventions
Interventions:
*Risk Screen - Suicide Last Done: 03/15/24 19:23
*General Assessment Last Done: 03/15/24 19:23
*Neglect/Abuse Screening Last Done: 03/15/24 19:23
ED- Fall Risk Assessment Last Done: 03/15/24 19:39
*ED COVID-19 Vaccine History Last Done: 03/15/24 19:23
*Nursing Disposition Last Done: 03/15/24 21:10
ED- Cardiac Assessment Last Done: 03/15/24 19:39
ED- Neurological Assessment Last Done: 03/15/24 19:39
ED- Pulmonary Assessment Last Done: 03/15/24 19:39
Discharge Date and Time
Discharge Date/Time: 03/15/24 21:11
[2024-03-15 20:00] VITALS: BP 122/77
[2024-03-15 20:06] LABS: % Basophils 0.7 % (0-2); % Eosinophils 1.8 % (0-6); % Immature Granulocytes 0.8 % (0-0.5); % Lymphocytes 12.3 % (20.5-51.1); % Monocytes 9.6 % (1.7-9.3); % Neutrophils 74.8 % (42.2-75.2); Absolute Basophils 0.1 10^3/uL (0-0.2); Absolute Eosinophils 0.3 10^3/uL (0-0.7); Absolute Immature Granulocytes 0.1 10^3/uL (0-0.05); Absolute Lymphocytes 1.7 10^3/uL (1.2-3.4); Absolute Monocytes 1.3 10^3/uL (0.1-0.6); Absolute Neutrophils 10.3 10^3/uL (1.4-6.5); Hematocrit 43.6 % (39.0-52.0); Hemoglobin 15.3 g/dL (13.0-18.0); Mean Corp Hgb Conc. 35.1 g/dL (33.0-37.0); Mean Corpuscular Hgb 30.6 pg (27.0-31.0); Mean Corpuscular Volume 87.2 fL (80.0-94.0); Mean Platelet Volume 8.4 fL (7.4-10.4); Nucleated Red Blood Cells % 0 % (-); Platelet Count 310 10^3/uL (130-400); White Blood Cell Count 13.7 10^3/uL (4.8-10.8)
--- NOTE | 2024-03-15 20:07 | HPS.HSE ---
Family Physician
-
Family Physician:
Chief Complaint
-
Discharged today and unable to be admitted at SNF
History of Present Illness
This is a 73 y.o male with h/o hyponatremia, bph, htn, schizoaffective d/o who was just admitted with hyponatremia and sepsis secondary to pneumonia and discharged today but sent back from SNF.
Per records, has history of developmental delay and lives at [facility]. Nursing staff was concerned upon getting him back that he had ambulatory difficulties and was still very SOB. They had no nurse this weekend and did not feel
they could handle him so sent him back. manager code states patient is not allowed to come back to facility tonight.
ED vitals are stable with oxygen sat of 97, T 98.2, RR 18 and BP of 152/89. Leukocytosis is up to 13 from around 8 yesterday otherwise CBC is unremarkable.
Medical History
Past Medical History
Past Medical History: Reports HTN and Psychiatric (Schizoaffective d/o)
Additional Past Medical History:
Hyponatremia
BPH
Past Surgical History: Reports None
Social History
Unable to obtain full social history at this time due to: Dementia
Tobacco: Non-smoker
Alcohol: None
Drug: None
Personal: Single
Living: Senior Living
Employment: Disabled
Family History
Family History: Not pertinent
Allergies / Home Medications
Allergies reflects when Allergies were last updated in [employer].
Home Medications with original date entered in [employer]
Allergy/Medication List:
Allergies
Allergy/AdvReac Type Severity Reaction Status Date / Time
No Known Allergies Allergy Verified 03/15/24 20:02
Home Medications
amlodipine 10 mg tablet 10 mg PO QPM Blood Pressure 12/15/21
finasteride 5 mg tablet 5 mg PO QPM Urinary Issue 12/15/21
losartan 100 mg tablet (Cozaar) 100 mg PO DAILY Blood Pressure 12/15/21
metoprolol tartrate 50 mg tablet 50 mg PO BID Blood Pressure 12/15/21
acetaminophen 325 mg tablet (Tylenol) 650 mg PO Q4HPRN PRN mild pain 03/11/24
carbamide peroxide 6.5 % ear drops (Debrox) 4 drp EACH EAR MOWEFR@2000 03/11/24
diphenoxylate-atropine 2.5 mg-0.025 mg tablet (Lomotil) 1 tab PO QIDPRN PRN diarrhea 03/11/24
guaifenesin 100 mg/5 mL oral liquid (Robafen) 100 mg PO Q4HPRN PRN cough 03/11/24
ibuprofen 200 mg tablet 400 mg PO Q6HPRN PRN mild pain 03/11/24
ketoconazole 2 % topical cream 1 applic topical BID both feet 03/11/24
levothyroxine 25 mcg tablet (Synthroid) 25 mcg PO DAILY Thyroid 03/11/24
triamcinolone acetonide 0.1 % topical cream 1 applic topical BIDPRN PRN hand eczema 03/11/24
cefdinir 300 mg capsule 300 mg PO Q12 #3 caps 03/15/24
doxycycline hyclate 100 mg capsule 100 mg PO Q12 #3 caps 03/15/24
erythromycin 5 mg/gram (0.5 %) eye ointment 1 cm ophthalmic (eye) QID 4 days #3.5 grams 03/15/24
Review of Systems
-
History Source: Patient
Constitutional: Reports No Symptoms
EENT: Reports No Symptoms
Respiratory: Reports No Symptoms
Cardiac: Reports No Symptoms
Abdomen/GI: Reports No Symptoms
: Reports No Symptoms
Musculoskeletal: Reports No Symptoms
Skin: Reports No Symptoms
Neurological: Reports No Symptoms
Endocrine: Reports No Symptoms
Hematologic/Lymphatic: Reports No Symptoms
Physical Exam
Vital Signs
Vital Signs
Temp Pulse Resp BP Pulse Ox
98.2 F 87 18 152/89 97
03/15/24 19:23 03/15/24 20:00 03/15/24 20:01 03/15/24 19:23 03/15/24 20:01
Physical Exam
General: Well Developed, Well Nourished, No Apparent Distress, Comfortable and Conversant
HEENT: NormoCephalic, Anicteric, Moist mucous membranes, Atraumatic and PERRLA
Respiratory: Clear
Cardiac: S1/S2 and Regular Rhythm
Breast: Deferred by me
GI: Soft, Non Tender, Normal Bowel Sounds and Distended
Rectal: Deferred by Provider
Genito-urinary: Deferred by me
Musculoskeletal: No Clubbing, No Cyanosis and No Edema
Skin: Warm
Neuro: Awake and Oriented
Hematologic/Lymphatic: No Lymphadenopathy
Psych: Calm
Laboratory Results
-
03/15/24 19:57
03/15/24 19:48
Laboratory Results
Total Bilirubin Cancelled 03/15/24 19:48
AST Cancelled 03/15/24 19:48
ALT Cancelled 03/15/24 19:48
Alkaline Phosphatase Cancelled 03/15/24 19:48
Data Reviewed
-
Lab Data: Labs Reviewed by me
Impression/Plan
-
IMPRESSION:
Patient was admitted with PNA/Sepsis and hyponatremia which are all improved. He was discharged today and sent back from [facility]. [facility] stated that the nurse who saw the patient felt he was still SOB and had ambulatory difficulty so cannot be admitted
and they were short-staffed. Examination here shows the patient to be well appearing, no cough, sob, fevers or chills. Oxygen saturation of 96% on room air. No increased wob. He was resting comfortably in Bed. repeat CBC shows some leukocytosis
but otherwise no signs of active infection. Unclear the actual reason for not admitting but patient does seem markedly improved. Will admit to obs and continue the regimen as previous with case management consultation.
PLAN:
Sepsis secondary to possible pneumonia - This appears resolved. No active symptoms
- doxycycline 100 mg BID for 3 more doses
-Cefdinir 300 mg BID on 03/14/24 -- discharge on 3 more doses of 300 mg
-repeat blood cultures given initially positive blood cultures -- negative growth to date
-Procalcitonin low at 0.08
-Urinalysis showed some RBC's, and a few bacteria, otherwise not strongly suggestive of UTI
-Urology follow-up on discharge given RBC's in urinalysis
Hyponatremia - IMPROVED
-PO Fluid Restriction
-low sodium diet and with 48 ounces daily PO fluid restriction
-Recheck BMP within 1 week
Suggestion of Mild Congestive Heart Failure on Chest X-ray
-Echocardiogram noted
-Follow-up with cardiology
Conjunctivitis
-Erythromycin 0.5% ointment, 1 centimeter to both eyes until 03/19/24
Essential Hypertension
-Continue amlodipine, metoprolol and losartan
BPH
-Continue Proscar
Schizoaffective Disorder
-Appears patient was previously on Seroquel, but no longer
-Monitor for mood/behavior changes during hospitalization
DVT prophylaxis: Lovenox
Code Status: Full Code
[2024-03-15 21:00] VITALS: BP 139/85
[2024-03-15 21:23] VITALS: BP 162/90; BMI 33.0
--- NOTE | 2024-03-15 21:49 | PTCARENOTE ---
Received pt from ER @ 2119. Pt ambulatory from stretcher to bed w 2 assist and RW. Pt AAOx2, disoriented to place. Oriented to room, call toro and plan of care. Bed alarm in place.
[2024-03-15] MEDS: ERYTHROMYCIN 0.5% OPHTHALMIC OINTMENT 1 APPLIC OPHTH (22:23)
[2024-03-15 23:10] VITALS: BP 116/68
[2024-03-16] MEDS: SYNTHROID 25 MCG PO (06:09)
[2024-03-16 07:39] VITALS: BP 148/90
[2024-03-16] MEDS: ERYTHROMYCIN 0.5% OPHTHALMIC OINTMENT 1 APPLIC OPHTH ×4 (08:50→22:43)
[2024-03-16] MEDS: ARISTOCORT/TRIAMCINOLONE 0.1% CREAM 1 APPLIC TOPICAL (09:11)
[2024-03-16] MEDS: VIBRAMYCIN 100 MG PO ×2 (09:11→19:53)
[2024-03-16] MEDS: LOPRESSOR 50 MG PO ×2 (09:11→19:52)
[2024-03-16] MEDS: COZAAR 100 MG PO (09:11)
[2024-03-16] MEDS: NIZORAL 2% CREAM 1 APPLIC TOPICAL ×2 (09:12→19:53)
[2024-03-16] MEDS: OMNICEF 300 MG PO ×2 (09:13→19:52)
[2024-03-16 09:43] VITALS: BMI 33.0
--- NOTE | 2024-03-16 10:56 | W.PN.HOSP.TC ---
Today's Communication/Plan
-
PT/OT
No symptoms as per patient
Assessment / Plan
Assessment / Plan
Physical Exam
General: Not in acute distress
HEENT: Normocephalic
Respiratory: CTAB
Cardiac: S1/S2 and Regular Rhythm
GI: Soft, Non Tender, Normal Bowel Sounds and Distended
Musculoskeletal: No Cyanosis and No Edema
Skin: Warm
Neuro: Awake and Oriented
Psych: Calm

IMPRESSION:
Patient was admitted with PNA/Sepsis and hyponatremia which are all improved. He was discharged today and sent back from [facility]. [facility] stated that the nurse who saw the patient felt he was still SOB and had ambulatory difficulty so cannot be admitted
and they were short-staffed. Examination here shows the patient to be well appearing, no cough, sob, fevers or chills. Oxygen saturation of 96% on room air. No increased wob. He was resting comfortably in Bed. repeat CBC shows some leukocytosis
but otherwise no signs of active infection. Unclear the actual reason for not admitting but patient does seem markedly improved. Will admit to obs and continue the regimen as previous with case management consultation.
PLAN:
Sepsis secondary to possible pneumonia - This appears resolved. No active symptoms
- doxycycline 100 mg BID for 2 more doses
-Cefdinir 300 mg BID on 03/14/24 -- 2 more doses of 300 mg
-repeat blood cultures given initially positive blood cultures -- negative growth to date
-Procalcitonin low at 0.08
-Urinalysis showed some RBC's, and a few bacteria, otherwise not strongly suggestive of UTI
-Urology follow-up on discharge given RBC's in urinalysis
Hyponatremia - IMPROVED
-PO Fluid Restriction
-low sodium diet and with 48 ounces daily PO fluid restriction
-Recheck BMP within 1 week
Suggestion of Mild Congestive Heart Failure on Chest X-ray
-Echocardiogram noted
-Follow-up with cardiology
Conjunctivitis
-Erythromycin 0.5% ointment, 1 centimeter to both eyes until 03/19/24
Essential Hypertension
-Continue amlodipine, metoprolol and losartan
BPH
-Continue Proscar
Schizoaffective Disorder
-Appears patient was previously on Seroquel, but no longer
-Monitor for mood/behavior changes during hospitalization
DVT prophylaxis: Lovenox
Code Status: Full Code
Anticipated Discharge: > 48 hours
Subjective/Interval History
-
Date of Service: March 16, 2024
Patient was seen and examined. He denied any chest pain, shortness of breath or any other symptoms or complaints.
Objective Data
-
Vital Signs:
Vital Signs
Temp Pulse Resp BP Pulse Ox
98.2 F 93 20 148/90 96
03/16/24 07:39 03/16/24 07:39 03/16/24 07:39 03/16/24 07:39 03/16/24 07:39
I&O
03/15/24 03/16/24 03/17/24
06:59 06:59 06:59
Output Total 150 / 150
Balance -150 / -150
[2024-03-16 15:31] VITALS: BP 139/84
--- NOTE | 2024-03-16 16:23 | CM ---
Patient was admitted from [facility], patient was recently discharge from [facility], patient to admission patient was independent with adl's and ambulation, patient may have been given a walker from last admission.
Patient has been living at the retirement for 14 years. Patient will need PT/OT to see if patient can return to retirement at discharge.
PCP: Dr. Delgado
Pharmacy: [facility].
[facility]
[phone]
[phone]

Plan; Await PT/OT evaluations.
[2024-03-16] MEDS: LOVENOX 40 MG SC (17:37)
[2024-03-16] MEDS: PROSCAR 5 MG PO (17:38)
[2024-03-16] MEDS: NORVASC 10 MG PO (17:38)
[2024-03-16 23:03] VITALS: BP 137/79
[2024-03-17] MEDS: SYNTHROID 25 MCG PO (06:09)
[2024-03-17 07:00] VITALS: BP 150/92
[2024-03-17 08:00] VITALS: BMI 33.1
[2024-03-17 08:02] VITALS: BP 150/92
[2024-03-17] MEDS: COZAAR 100 MG PO (08:36)
[2024-03-17] MEDS: LOPRESSOR 50 MG PO ×2 (08:36→21:39)
[2024-03-17] MEDS: OMNICEF 300 MG PO ×2 (08:36→21:39)
[2024-03-17] MEDS: VIBRAMYCIN 100 MG PO ×2 (08:36→21:39)
[2024-03-17 08:46] LABS: % Basophils 0.7 % (0-2); % Eosinophils 1.8 % (0-6); % Immature Granulocytes 0.8 % (0-0.5); % Lymphocytes 16.3 % (20.5-51.1); % Monocytes 8.7 % (1.7-9.3); % Neutrophils 71.7 % (42.2-75.2); Absolute Basophils 0.1 10^3/uL (0-0.2); Absolute Eosinophils 0.2 10^3/uL (0-0.7); Absolute Immature Granulocytes 0.1 10^3/uL (0-0.05); Absolute Lymphocytes 1.6 10^3/uL (1.2-3.4); Absolute Monocytes 0.9 10^3/uL (0.1-0.6); Hematocrit 39.6 % (39.0-52.0); Mean Corp Hgb Conc. 35.4 g/dL (33.0-37.0); Mean Corpuscular Hgb 30.8 pg (27.0-31.0); Mean Corpuscular Volume 87.2 fL (80.0-94.0); Mean Platelet Volume 9.1 fL (7.4-10.4); Nucleated Red Blood Cells % 0 % (-); Platelet Count 325 10^3/uL (130-400); Red Blood Cell Count 4.54 10^6/uL (4.70-6.10); Red Cell Dist. Width 14.3 % (11.5-14.5); White Blood Cell Count 9.8 10^3/uL (4.8-10.8)
[2024-03-17 08:52] LABS: ALT (SGPT) 26 U/L (0-50); AST (SGOT) 28 U/L (17-59); Albumin 3.6 g/dl (3.5-5.0); Alkaline Phosphatase 83 U/L (38-126); Blood Urea Nitrogen 18 mg/dl (9-20); Calcium 8.9 mg/dl (8.4-10.2); Carbon Dioxide 28 mmol/L (22-30); Chloride 99 mmol/L (98-107); Estimated Creatinine Clearance 84 ml/min; Glucose 95 mg/dl (70-99); Potassium 3.7 mmol/L (3.5-5.1); Sodium 135 mmol/L (135-145); Total Bilirubin 0.7 mg/dl (0.2-1.3); Total Protein 6.2 g/dl (6.3-8.2); eGFR > 60.00
[2024-03-17] MEDS: ERYTHROMYCIN 0.5% OPHTHALMIC OINTMENT 1 APPLIC OPHTH ×4 (09:06→21:39)
[2024-03-17] MEDS: NIZORAL 2% CREAM 1 APPLIC TOPICAL ×2 (09:07→21:39)
--- NOTE | 2024-03-17 10:44 | CM ---
Call placed to admissions at [facility] and spoke with Franco and per Franco the nurse from [facility] will be out tomorrow Monday to evaluate patient at [facility].
Plan; Nurse from [facility] to come out to [facility] to evaluate patient on Monday.
--- NOTE | 2024-03-17 10:46 | W.PN.HOSP.TC ---
Today's Communication/Plan
-
Patient stable, asymptomatic
Needs PT/OT, Ambulation with Assistance for now
Per [facility] conversation today with nurse case management Patti Whitman, Patti spoke with correction where patient lives and the correction's nurse will come to [facility] tomorrow morning to evaluate patient for retur back to correction.
Assessment / Plan
Assessment / Plan
Physical Exam
General: Not in acute distress
HEENT: Normocephalic
Respiratory: CTAB
Cardiac: S1/S2 and Regular Rhythm
GI: Soft, Non Tender, Normal Bowel Sounds and Distended
Musculoskeletal: No Cyanosis and No Edema
Skin: Warm
Neuro: Awake and Oriented
Psych: Calm

IMPRESSION:
Patient was admitted with PNA/Sepsis and hyponatremia which are all improved. He was discharged today and sent back from [facility]. SNF stated that the nurse who saw the patient felt he was still SOB and had ambulatory difficulty so cannot be admitted
and they were short-staffed. Examination here shows the patient to be well appearing, no cough, sob, fevers or chills. Oxygen saturation of 96% on room air. No increased wob. He was resting comfortably in Bed. repeat CBC shows some leukocytosis
but otherwise no signs of active infection. Unclear the actual reason for not admitting but patient does seem markedly improved. Will admit to obs and continue the regimen as previous with case management consultation.
PLAN:
Recent sepsis suspected secondary to possible pneumonia - This appears resolved. No active symptoms
Leukocytosis Resolved
-Completed course of Cefdinir and Doxycycline from previous hospitalization
-Repeat blood cultures given initially positive blood cultures (CoNS contaminant) -- negative growth to date
-Procalcitonin low at 0.08
-Urinalysis showed some RBC's, and a few bacteria, otherwise not strongly suggestive of UTI
-Urology follow-up on discharge given RBC's in urinalysis
Hyponatremia - RESOLVED
-PO 48 ounces daily PO fluid restriction
-low sodium diet and with 48 ounces daily PO fluid restriction
-When being discharged, recheck BMP within 1 week
Suggestion of Mild Congestive Heart Failure on Chest X-ray
-Echocardiogram noted
-Follow-up with cardiology
Conjunctivitis
-Erythromycin 0.5% ointment, 1 centimeter to both eyes until 03/19/24
Essential Hypertension
-Continue amlodipine, metoprolol and losartan
BPH
-Continue Proscar
Schizoaffective Disorder
-Appears patient was previously on Seroquel, but no longer
-Monitor for mood/behavior changes during hospitalization
DVT prophylaxis: Lovenox
Code Status: Full Code
Disposition: Per [facility] conversation today with nurse case management Patti Whitman, Patti spoke with correction where patient lives and the correction's nurse will come to [facility] tomorrow morning to evaluate patient for return back to group
home.
Anticipated Discharge: Within 24 hours
Subjective/Interval History
-
Date of Service: March 17, 2024
Patient was seen and examined. He said he is feeling good, and denied any fever, chest pain or shortness of breath, and he also stated that he wants to go home.
Objective Data
-
Labs:
Laboratory Results
03/17/24
07:07
WBC 9.8
Hgb 14.0
Hct 39.6
Plt Count 325
Sodium 135
Potassium 3.7
Chloride 99
Carbon Dioxide 28
BUN 18
Creatinine 0.8
Glucose 95
Calcium 8.9
Total Bilirubin 0.7
AST 28
ALT 26
Alkaline Phosphatase 83
Vital Signs:
Vital Signs
Temp Pulse Resp BP Pulse Ox
98.0 F 85 20 150/92 97
03/17/24 07:00 03/17/24 08:36 03/17/24 07:00 03/17/24 08:36 03/17/24 08:00
I&O
03/16/24 03/17/24 03/18/24
06:59 06:59 06:59
Intake Total 840 / 840
Output Total 150 / 150 700 / 700
Balance -150 / -150 140 / 140
[2024-03-17 15:00] VITALS: BP 152/89
[2024-03-17] MEDS: LOVENOX 40 MG SC (17:12)
[2024-03-17] MEDS: NORVASC 10 MG PO (17:12)
[2024-03-17] MEDS: PROSCAR 5 MG PO (17:13)
[2024-03-17 21:37] VITALS: BP 154/92
[2024-03-18 00:52] VITALS: BP 140/88
[2024-03-18] MEDS: SYNTHROID 25 MCG PO (05:27)
[2024-03-18 05:32] VITALS: BMI 32.3
[2024-03-18 06:39] LABS: % Basophils 0.8 % (0-2); % Eosinophils 2.1 % (0-6); % Immature Granulocytes 0.5 % (0-0.5); % Lymphocytes 17.1 % (20.5-51.1); % Monocytes 9.3 % (1.7-9.3); % Neutrophils 70.2 % (42.2-75.2); Absolute Basophils 0.1 10^3/uL (0-0.2); Absolute Eosinophils 0.2 10^3/uL (0-0.7); Absolute Immature Granulocytes 0.1 10^3/uL (0-0.05); Absolute Lymphocytes 1.7 10^3/uL (1.2-3.4); Absolute Neutrophils 7.2 10^3/uL (1.4-6.5); Hematocrit 40.4 % (39.0-52.0); Hemoglobin 14.1 g/dL (13.0-18.0); Mean Corp Hgb Conc. 34.9 g/dL (33.0-37.0); Mean Corpuscular Hgb 29.9 pg (27.0-31.0); Mean Corpuscular Volume 85.6 fL (80.0-94.0); Mean Platelet Volume 8.9 fL (7.4-10.4); Nucleated Red Blood Cells % 0 % (-); Platelet Count 352 10^3/uL (130-400); Red Blood Cell Count 4.72 10^6/uL (4.70-6.10); Red Cell Dist. Width 14.2 % (11.5-14.5); White Blood Cell Count 10.2 10^3/uL (4.8-10.8)
[2024-03-18 06:45] LABS: ALT (SGPT) 27 U/L (0-50); AST (SGOT) 31 U/L (17-59); Albumin 3.8 g/dl (3.5-5.0); Alkaline Phosphatase 93 U/L (38-126); Blood Urea Nitrogen 22 mg/dl (9-20); Calcium 9.3 mg/dl (8.4-10.2); Carbon Dioxide 27 mmol/L (22-30); Chloride 99 mmol/L (98-107); Estimated Creatinine Clearance 73 ml/min; Glucose 112 mg/dl (70-99); Potassium 3.9 mmol/L (3.5-5.1); Sodium 135 mmol/L (135-145); Total Bilirubin 0.8 mg/dl (0.2-1.3); Total Protein 6.7 g/dl (6.3-8.2); eGFR > 60.00
[2024-03-18 07:35] VITALS: BP 149/90
[2024-03-18] MEDS: VIBRAMYCIN 100 MG PO ×2 (08:40→22:18)
[2024-03-18] MEDS: COZAAR 100 MG PO (08:41)
[2024-03-18] MEDS: ERYTHROMYCIN 0.5% OPHTHALMIC OINTMENT 1 APPLIC OPHTH ×4 (08:41→22:17)
[2024-03-18] MEDS: LOPRESSOR 50 MG PO ×2 (08:42→20:42)
[2024-03-18] MEDS: OMNICEF 300 MG PO ×2 (08:42→20:43)
[2024-03-18] MEDS: NIZORAL 2% CREAM 1 APPLIC TOPICAL ×2 (08:42→20:43)
--- NOTE | 2024-03-18 10:01 | W.PN.HOSP.TC ---
Today's Communication/Plan
-
.
Assessment / Plan
Assessment / Plan
Physical Exam
General: Not in acute distress
HEENT: Normocephalic
Respiratory: CTAB
Cardiac: S1/S2 and Regular Rhythm
GI: Soft, Non Tender, Normal Bowel Sounds and Distended
Musculoskeletal: No Cyanosis and No Edema
Skin: Warm
Neuro: Awake and Oriented
Psych: Calm

IMPRESSION:
Patient was admitted with PNA/Sepsis and hyponatremia which are all improved. He was discharged today and sent back from [facility]. [facility] stated that the nurse who saw the patient felt he was still SOB and had ambulatory difficulty so cannot be admitted
and they were short-staffed. Examination here shows the patient to be well appearing, no cough, sob, fevers or chills. Oxygen saturation of 96% on room air. No increased wob. He was resting comfortably in Bed. repeat CBC shows some leukocytosis
but otherwise no signs of active infection. Unclear the actual reason for not admitting but patient does seem markedly improved. Will admit to obs and continue the regimen as previous with case management consultation.
PLAN:
Recent sepsis suspected secondary to possible pneumonia - This appears resolved. No active symptoms
Leukocytosis Resolved
-Completed course of Cefdinir and Doxycycline from previous hospitalization
-Repeat blood cultures given initially positive blood cultures (CoNS contaminant) -- negative growth to date
-Procalcitonin low at 0.08
- repeat chest x ray
-Urinalysis showed some RBC's, and a few bacteria, otherwise not strongly suggestive of UTI
-Urology follow-up on discharge given RBC's in urinalysis
Hyponatremia - RESOLVED
-PO 48 ounces daily PO fluid restriction
-low sodium diet and with 48 ounces daily PO fluid restriction
-When being discharged, recheck BMP within 1 week
Suggestion of Mild Congestive Heart Failure on Chest X-ray
-Echocardiogram noted
-Follow-up with cardiology
re-check Pro-BNP
Conjunctivitis
-Erythromycin 0.5% ointment, 1 centimeter to both eyes until 03/19/24
Essential Hypertension
-Continue amlodipine, metoprolol and losartan
BPH
-Continue Proscar
Schizoaffective Disorder
-Appears patient was previously on Seroquel, but no longer
-Monitor for mood/behavior changes during hospitalization
DVT prophylaxis: Lovenox
Code Status: Full Code
Disposition: Per conversation today with transplant case manager Gabby, pt needs to have medical clearance to go back, will work on it
Total time spent to see the patient, examine the patient on the floor, review data and lab results, discuss treatment plan with patient, nursing staff around 55 minutes
Anticipated Discharge: Within 24 hours
Subjective/Interval History
-
Date of Service: March 18, 2024
No chest pain or sob
Objective Data
-
Labs:
Laboratory Results
03/18/24
05:55
WBC 10.2
Hgb 14.1
Hct 40.4
Plt Count 352
Sodium 135
Potassium 3.9
Chloride 99
Carbon Dioxide 27
BUN 22 H
Creatinine 0.9
Glucose 112 H
Calcium 9.3
Total Bilirubin 0.8
AST 31
ALT 27
Alkaline Phosphatase 93
Vital Signs:
Vital Signs
Temp Pulse Resp BP Pulse Ox
98.2 F 80 18 149/90 97
03/18/24 07:35 03/18/24 08:41 03/18/24 07:35 03/18/24 08:41 03/18/24 07:35
I&O
03/17/24 03/18/24 03/19/24
06:59 06:59 06:59
Intake Total 840 / 840 700 / 700
Output Total 700 / 700 100 / 100
Balance 140 / 140 600 / 600
--- NOTE | 2024-03-18 12:04 | CM ---
CM received call from Marii nurse at [facility] ([phone]). Marii reports they are able to accept patient back if he is clear for discharge, reports referral for PT previously made is still valid. Marii reports pharmacy used to any
medications is the [facility] on [address]. Marii reports patient will need ambulance transportation upon discharge, requesting discharge medications, labs, instructions faxed to [phone]. Per Hospitalist, would like to order repeat chest xray. CM will
continue to follow for all discharge planning needs.
Plan; return to [facility] when medically stable
Report# [phone]- Marii
[2024-03-18 12:54] LABS: NT-proBNP 134 pg/ml
[2024-03-18 14:32] VITALS: BP 133/75
[2024-03-18] MEDS: NORVASC 10 MG PO (17:17)
[2024-03-18] MEDS: LOVENOX 40 MG SC (17:18)
[2024-03-18] MEDS: PROSCAR 5 MG PO (17:18)
[2024-03-18 20:29] VITALS: BP 147/82
[2024-03-18] MEDS: DEBROX EAR DROPS 4 DROP BOTH EARS (20:42)
[2024-03-18 23:19] VITALS: BP 152/92
[2024-03-19] MEDS: SYNTHROID 25 MCG PO (05:11)
[2024-03-19 06:00] VITALS: BMI 32.1
[2024-03-19] MEDS: ERYTHROMYCIN 0.5% OPHTHALMIC OINTMENT 1 APPLIC OPHTH (07:45)
[2024-03-19] MEDS: OMNICEF 300 MG PO (07:46)
[2024-03-19] MEDS: LOPRESSOR 50 MG PO (07:46)
[2024-03-19] MEDS: ARISTOCORT/TRIAMCINOLONE 0.1% CREAM 1 APPLIC TOPICAL (07:46)
[2024-03-19] MEDS: COZAAR 100 MG PO (07:46)
[2024-03-19] MEDS: VIBRAMYCIN 100 MG PO (07:46)
[2024-03-19] MEDS: NIZORAL 2% CREAM 1 APPLIC TOPICAL (07:46)
[2024-03-19 08:44] VITALS: BP 156/91
--- NOTE | 2024-03-19 10:31 | CM ---
CM placed a call to Marii at [facility], discussed patient is clear for discharge today. Patient will require ambulance transportation, scheduled for 1:00 p.m. CM placed another call to Marii, left voicemail with transportation time
([phone]). KEIRY placed call to main number [phone], updated facility that patient will be transported from hospital at 1:00 p.m. CM will continue to follow for all discharge planning needs.
Plan; return to [facility] home, 1:00 p.m.
[facility]
Report# [phone]- Marii
--- NOTE | 2024-03-19 10:57 | W.DCSUMMARY ---
Discharge Summary
Discharge Data
Date of Admission: 03/15/24
Date of Discharge: 03/19/24
-
Pending Results: No
Hospital Course
73 years old male who was recently admitted for treatment of hyponatremia and pneumonia presented with weakness. Facility staff was concerned about ambulatory difficulties and shortness of breath. Patient did not have hypoxia on admission. He
had mild leukocytosis. Repeat chest radiography did not show infiltration. He did not need oxygen in the hospital. Patient was evaluated by physical therapy and recommended home health care services. Patient completed course of antibiotic.
Repeat blood culture did not show growth. Procalcitonin was low on admission. Patient was maintained on fluid restriction for hyponatremia. Repeat pro BNP was low and not consistent with heart failure. Patient remained hemodynamically stable and
was discharged back to half-way in a stable condition.
Physical Exam
General: Not in acute distress
HEENT: Normocephalic
Respiratory: CTAB
Cardiac: S1/S2 and Regular Rhythm
GI: Soft, Non Tender, Normal Bowel Sounds and Distended
Musculoskeletal: No Cyanosis and No Edema
Skin: Warm
Neuro: Awake and Oriented
Psych: Calm, not agitated, pleasant.
Total discharge time spent to see the patient, examine the patient on the floor, review data and lab results, discuss discharge plan with patient, piano case and bench assembler, nursing staff around 65 minutes
Discharge Plan
-
Patient Disposition: Home with Home Care
Discharge Diagnosis/Procedures: Weakness.
You had pneumonia & conjunctivitis. You finished course of treatment while in the hospital.
Diet: As tolerated and Restrict fluids to 64 oz
Referrals:
Paulette Delgado MD [Family Provider] - in one to two weeks
Prescriptions:
Continued
losartan [Cozaar] 100 MG tablet
100 mg PO DAILY
amlodipine 10 MG tablet
10 mg PO QPM
metoprolol tartrate 50 MG tablet
50 mg PO BID
finasteride 5 MG tablet
5 mg PO QPM
acetaminophen [Tylenol] 325 mg Tablet
650 mg PO Q4HPRN PRN (Reason: mild pain)
diphenoxylate-atropine [Lomotil] 2.5-0.025 mg Tablet
1 tab PO QIDPRN PRN (Reason: diarrhea)
guaifenesin [Robafen] 100 mg/5 mL Liquid
100 mg PO Q4HPRN PRN (Reason: cough)
triamcinolone acetonide 0.1 % Cream
1 applic TOPICAL BIDPRN PRN (Reason: hand eczema)
levothyroxine [Synthroid] 25 mcg Tablet
25 mcg PO DAILY
ibuprofen 200 mg Tablet
400 mg PO Q6HPRN PRN (Reason: mild pain)
Debrox 6.5 % Drops
4 drp EACH EAR MOWEFR@1999
ketoconazole 2 % Cream
1 applic TOPICAL BID
Discontinued
erythromycin 5 mg/gram (0.5 %) Ointment
1 cm ophthalmic (eye) QID 4 Days Qty: 3.5 0RF
cefdinir 300 mg Capsule
300 mg PO Q12 Qty: 3 0RF
doxycycline hyclate 100 mg Capsule
100 mg PO Q12 Qty: 3 0RF
Discharge Orders:
Discharge Patient (As Directed); Ordered 03/19/24
Ordered By: Fidelina Griffin
Discharge Date and Time
Print Language: OMANI
[2024-03-19 13:40] VITALS: BP 144/90
== END 2024-03-19 13:52 | disposition home or self-care (01) ==
LOC: 4 WEST ACU 20:33
PROVIDERS: Hospitalist; Physician Assistant Medical; ADMITTING PHYSICIAN Internal Medicine; ATTENDING PHYSICIAN Internal Medicine; EMERGENCY PHYSICIAN Emergency Medicine; FAMILY PHYSICIAN Family Medicine
DX: R06.02 Shortness of breath (principal); R53.1 Weakness; R26.2 Difficulty in walking, not elsewhere classified; D72.829 Elevated white blood cell count, unspecified; H10.9 Unspecified conjunctivitis; F25.9 Schizoaffective disorder, unspecified; R62.50 Unspecified lack of expected normal physiological development in childhood; E03.9 Hypothyroidism, unspecified; E87.1 Hypo-osmolality and hyponatremia; N40.0 Benign prostatic hyperplasia without lower urinary tract symptoms; I11.0 Hypertensive heart disease with heart failure; Z79.890 Hormone replacement therapy
CPT/HCPCS: 71046; 80053; 83735; 83880; 85025; 87070; 97162; 97166; 99284; G0378

== ENCOUNTER → 2024-07-04 09:36 | Outpatient (REF) | payer MEDICARE, SELFPAY | LOC: RAD 09:36 | PROVIDERS: ATTENDING PHYSICIAN Nurse Practitioner | DX: K64.9 Unspecified hemorrhoids (principal) | CPT/HCPCS: 76705 ==

== ENCOUNTER → 2024-08-07 13:13 | Outpatient (REF) | payer MEDICARE, SELFPAY | LOC: RAD 13:13 | PROVIDERS: ATTENDING PHYSICIAN Nurse Practitioner | DX: D17.1 Benign lipomatous neoplasm of skin and subcutaneous tissue of trunk (principal); M79.89 Other specified soft tissue disorders | CPT/HCPCS: 76604 ==

== ENCOUNTER 2024-09-11 20:43 | Inpatient (IN) | payer MEDICARE, SELFPAY ==
[2024-09-11] VITALS (7 sets, daily range): BP systolic 111–151; BP diastolic 65–88; BMI 32.8
[2024-09-11 18:15] LABS: % Basophils 1.2 % (0-2); % Eosinophils 4.9 % (0-6); % Immature Granulocytes 0.4 % (0-0.5); % Lymphocytes 23.7 % (20.5-51.1); % Monocytes 15.6 % (1.7-9.3); % Neutrophils 54.2 % (42.2-75.2); Absolute Basophils 0.1 10^3/uL (0-0.2); Absolute Eosinophils 0.3 10^3/uL (0-0.7); Absolute Lymphocytes 1.2 10^3/uL (1.2-3.4); Absolute Monocytes 0.8 10^3/uL (0.1-0.6); Absolute Neutrophils 2.8 10^3/uL (1.4-6.5); Hemoglobin 12.5 g/dL (13.0-18.0); Mean Corp Hgb Conc. 34.7 g/dL (33.0-37.0); Mean Corpuscular Volume 86.5 fL (80.0-94.0); Mean Platelet Volume 8.6 fL (7.4-10.4); Nucleated Red Blood Cells % 0 % (-); Platelet Count 291 10^3/uL (130-400); Red Blood Cell Count 4.16 10^6/uL (4.70-6.10); Red Cell Dist. Width 12.7 % (11.5-14.5); White Blood Cell Count 5.1 10^3/uL (4.8-10.8)
[2024-09-11 18:28] LABS: Lactic Acid 0.8 mmol/L (0.7-2.0)
[2024-09-11 18:28] LABS: ALT (SGPT) 18 U/L (0-50); AST (SGOT) 30 U/L (17-59); Albumin 4.1 g/dl (3.5-5.0); Alkaline Phosphatase 82 U/L (38-126); Blood Urea Nitrogen 16 mg/dl (9-20); Calcium 8.8 mg/dl (8.4-10.2); Carbon Dioxide 23 mmol/L (22-30); Chloride 87 mmol/L (98-107); Glucose 132 mg/dl (70-99); Potassium 4.2 mmol/L (3.5-5.1); Sodium 120 mmol/L (135-145); Total Bilirubin 0.2 mg/dl (0.2-1.3); Total Protein 7.1 g/dl (6.3-8.2); eGFR > 60.00
[2024-09-11 18:38] LABS: COVID-19 Antigen Negative (Negative)
--- NOTE | 2024-09-11 19:13 | ED.GENMED ---
History of Present Illness
<JASON Steele - Last Filed: 09/11/24 19:33>
General
Chief Complaint: Cold/Flu/URI Symptoms
Source: patient and [facility] records
Exam Limitations: other (Moderate mental retardation)
Time Seen by Provider: 09/11/24 18:41
History of Present Illness
History of Present Illness:
This is a 74 y/o male with PMH of BPH, HTN, schizoaffective disorder and moderate mental retardation who presents to the ED c/o cold/flu/URI sx. Pt admits to diarrhea, appetite change and wheezing, but unable to elaborate any further. Per records
from pt's nursing facility, he admits to diarrhea, cough, sneezing and rhinorrhea. They also stated that he has been in contact with multiple other residents with the flu. Received flu vaccine this year. Denies fever/chills, headache, sore throat,
chest pain, dysuria and dizziness.
Past History
<JASON Steele - Last Filed: 09/11/24 19:33>
Past History
ED Past Medical History: Hypothyroidism and Psychiatric
ED Past Surgical History: None
Social History
Tobacco: Non-smoker
Alcohol: None
Drug: None
Personal: Single
Living: assisted living
Review of Systems
<JASON Steele - Last Filed: 09/11/24 19:33>
Review of Systems
Other source history: [facility]
Phy Exam
<JASON Steele - Last Filed: 09/11/24 19:33>
Physical Exam
Physical Exam:
Skin: [place], soft, well-hydrated
Head: Atraumatic, normocephalic; scalp, pink freely moveable without tenderness
Eyes: sclerae non-icteric; PERRLA; EOMI; no lid lag; red reflex present
Ears: canals with moderate amount of dry cerumen
Nose and Sinuses: Nares patent bilaterally without flaring; no frontal or maxillary sinus tenderness with palpation
Neck: bilateral tonsillar lymph nodes palpable and nontender
Chest and Lungs: muscle and respiratory effort symmetric without use of accessory muscles; vesicular breath sounds with audible wheezes bilaterally; even breathing with wheezes
Heart: No lifts or heaves visible; regular rate and rhythm; No murmurs, rubs or gallops
PV: radial, dorsalis pedis and posterior tibial pulses all intact bilaterally
General Physical Exam
General Presentation: no apparent distress
General age: appears stated age
General Skin: warm and dry
General Habitus: normal
General Mental: alert
Course
<oCurtney Alvarez, [facility] - Last Filed: 09/11/24 19:33>
Orders/Labs/Results
Orders:
Orders
09/11/24 17:40
Electrocardiogram (*1) Urgent
Reason for Study: Shortness of Breath
EKG- Treatment ONCE
CR Chest - 2 Views Urgent
Comment:
Reason For Exam: cough
09/11/24 18:07
COVID-19 Antigen Urgent
Source: Nasal Swab
Complete Blood Count/With Diff Urgent
Comprehensive Metabolic Panel Urgent
Influenza A+B Rapid Molecular Urgent
[place] Source: Nasal Swab
Specimen Description:
09/11/24 18:08
Lactic Acid Urgent
09/11/24 19:23
0.9% Sodium Chloride 1000 ml [Nss] 1,000 ml IV BOLUS
Ipratropium/Albuterol Sulfate [Duoneb] 3 ml INH R NOW STA
Oseltamivir Phosphate [Tamiflu] 75 mg PO NOW STA
Abnormal Lab Results
09/11/24
18:07
RBC 4.16 L 10^6/uL
(4.70-6.10)
Hgb 12.5 L g/dL
(13.0-18.0)
Hct 36.0 L %
(39.0-52.0)
Absolute Monos (auto) 0.8 H 10^3/uL
(0.1-0.6)
Monocytes % 15.6 H %
(1.7-9.3)
Sodium 120 L mmol/L
(135-145)
Chloride 87 L mmol/L
(98-107)
Glucose 132 H mg/dl
(70-99)
09/11/24 18:07
09/11/24 18:07
Vital Signs
Initial and Last Documented VS:
Initial Vital Signs
Temp Pulse Resp BP Pulse Ox
98.4 F 74 22 151/76 94
09/11/24 17:35 09/11/24 17:35 09/11/24 17:35 09/11/24 17:35 09/11/24 17:35
Last Documented Vital Signs
Temp Pulse Resp BP Pulse Ox
98.4 F 69 22 151/76 98
09/11/24 17:35 09/11/24 19:16 09/11/24 19:16 09/11/24 17:35 09/11/24 19:16
Kianlt;Robert Lim, DO - Last Filed: 09/11/24 19:34>
Orders/Labs/Results
Orders:
Orders
09/11/24 17:40
Electrocardiogram (*1) Urgent
Reason for Study: Shortness of Breath
EKG- Treatment ONCE
CR Chest - 2 Views Urgent
Comment:
Reason For Exam: cough
09/11/24 18:07
COVID-19 Antigen Urgent
Source: Nasal Swab
Complete Blood Count/With Diff Urgent
Comprehensive Metabolic Panel Urgent
Influenza A+B Rapid Molecular Urgent
[place] Source: Nasal Swab
Specimen Description:
09/11/24 18:08
Lactic Acid Urgent
09/11/24 19:23
0.9% Sodium Chloride 1000 ml [Nss] 1,000 ml IV BOLUS
Ipratropium/Albuterol Sulfate [Duoneb] 3 ml INH R NOW STA
Oseltamivir Phosphate [Tamiflu] 75 mg PO NOW STA
Abnormal Lab Results
09/11/24
18:07
RBC 4.16 L 10^6/uL
(4.70-6.10)
Hgb 12.5 L g/dL
(13.0-18.0)
Hct 36.0 L %
(39.0-52.0)
Absolute Monos (auto) 0.8 H 10^3/uL
(0.1-0.6)
Monocytes % 15.6 H %
(1.7-9.3)
Sodium 120 L mmol/L
(135-145)
Chloride 87 L mmol/L
(98-107)
Glucose 132 H mg/dl
(70-99)
09/11/24 18:07
09/11/24 18:07
Vital Signs
Initial and Last Documented VS:
Initial Vital Signs
Temp Pulse Resp BP Pulse Ox
98.4 F 74 22 151/76 94
09/11/24 17:35 09/11/24 17:35 09/11/24 17:35 09/11/24 17:35 09/11/24 17:35
Last Documented Vital Signs
Temp Pulse Resp BP Pulse Ox
98.4 F 69 22 151/76 98
09/11/24 17:35 09/11/24 19:16 09/11/24 19:16 09/11/24 17:35 09/11/24 19:16
<Robert Lim, DO - Last Filed: 09/11/24 19:34>
*Radiology
Radiology exam reviewed: preliminary read by ED provider
*Pulse Oximetry
Patient hypoxic: no
*EKG
Interpreted by ED Provider?: Yes
Interpretation: abnormal
Comparison EKG: no comparison EKG present
Heart Rate: 78
Rate: normal
Rhythm: sinus
Ischemia: non-specific ST changes
*Transport Specialist Interpretation
Rate: normal
Interpretation: normal
Heart Rate: 78
Rhythm: sinus
*Critical Care Note
Total Time (30-74mins, 75-104mins- exclusive of procedures): Not Applicable
<Robert Lim DO - Last Filed: 09/11/24 19:34>
Update Note
Update Note:
7:30 PM 7 PM ER attending, seen with student examined independently special-needs male from a facility cough congestion influenza positive, here is confused unclear of his baseline, looks dry labs chest x-ray noted suspect is get hypovolemic
hyponatremia, will start saline nebs Tamiflu low threshold to admit
ED Attending Note
<JASON Steele - Last Filed: 09/11/24 19:33>
-
Portions of this chart may have been created with voice recognition software.� Occasional wrong word or��sound alike� substitutions may have occurred due to the inherent limitations of voice recognition software.
Discharge Plan
Departure
Patient Disposition: Admit
Date of Disposition: 09/11/24
Time of Disposition: 19:34
Admit to: Med/Surg
Presentation/result/management discussed w/ accepting MD/DO: Hospitalist
Patient with high blood pressure during this ER visit?: No
Condition: Fair
Covid-19: Not Applicable
Discharge Problem:
Acute hyponatremia, Influenza A
Prescriptions:
No Action
losartan [Cozaar] 100 MG tablet
100 mg PO DAILY
amlodipine 10 MG tablet
10 mg PO QPM
metoprolol tartrate 50 MG tablet
50 mg PO BID
finasteride 5 MG tablet
5 mg PO QPM
acetaminophen [Tylenol] 325 mg Tablet
650 mg PO Q4HPRN PRN (Reason: mild pain)
diphenoxylate-atropine [Lomotil] 2.5-0.025 mg Tablet
1 tab PO QIDPRN PRN (Reason: diarrhea)
guaifenesin [Robafen] 100 mg/5 mL Liquid
100 mg PO Q4HPRN PRN (Reason: cough)
triamcinolone acetonide 0.1 % Cream
1 applic TOPICAL BIDPRN PRN (Reason: hand eczema)
levothyroxine [Synthroid] 25 mcg Tablet
25 mcg PO DAILY
ibuprofen 200 mg Tablet
400 mg PO Q6HPRN PRN (Reason: mild pain)
Debrox 6.5 % Drops
4 drp EACH EAR MOWEFR@1999
ketoconazole 2 % Cream
1 applic TOPICAL BID
Interventions
Interventions:
*Risk Screen - Suicide Last Done: 09/11/24 19:17
*General Assessment Last Done: 09/11/24 19:17
*Neglect/Abuse Screening Last Done: 09/11/24 19:17
*ED COVID-19 Vaccine History Last Done: 09/11/24 19:17
ED- Pulmonary Assessment Last Done: 09/11/24 19:16
Discharge Date and Time
Print Language: SINHALA
[2024-09-11] MEDS: TAMIFLU 75 MG PO (19:40)
[2024-09-11] MEDS: NSS 1000 IV (19:40)
[2024-09-11] MEDS: DUONEB 3 ML INH (19:40)
--- NOTE | 2024-09-11 20:21 | HPS.HSE ---
Family Physician
-
Family Physician: Chapincito Benson
Chief Complaint
-
uri symptoms
History of Present Illness
74-year-old male past medical history of BPH, possible CHF, hypertension, schizoaffective disorder, mental retardation, hyponatremia, hypothyroidism, presenting to the emergency room for upper respiratory symptoms. He has been having cough,
sneezing, rhinorrhea and diarrhea and decreased appetite and wheezing. He has been in contact with multiple other residents with the flu. Patient cannot provide any history at this time and he is answering no to everything.
Denies fevers or chills, headache, sore throat, chest pain, urinary symptoms or dizziness.
Medical History
Past Medical History
Past Medical History: Reports Other (BPH, possible CHF, hypertension, schizoaffective disorder, mental retardation, hyponatremia, hypothyroidism,)
Past Surgical History: Reports None
Social History
Tobacco: Non-smoker
Alcohol: None
Drug: None
Family History
Family History: Not pertinent
Allergies / Home Medications
Allergies reflects when Allergies were last updated in [facility].
Home Medications with original date entered in [facility]
Allergy/Medication List:
Allergies
Allergy/AdvReac Type Severity Reaction Status Date / Time
No Known Allergies Allergy Verified 09/11/24 17:39
Home Medications
amlodipine 10 mg tablet 10 mg PO QPM Blood Pressure 12/15/21
losartan 100 mg tablet (Cozaar) 100 mg PO DAILY Blood Pressure 12/15/21
metoprolol tartrate 50 mg tablet 50 mg PO BID@0800,1600 Blood Pressure 12/15/21
acetaminophen 325 mg tablet (Tylenol) 650 mg PO Q4HPRN PRN mild pain/fever 03/11/24
carbamide peroxide 6.5 % ear drops (Debrox) 4 drp EACH EAR MOWEFR@199903/11/24
diphenoxylate-atropine 2.5 mg-0.025 mg tablet (Lomotil) 1 tab PO QIDPRN PRN diarrhea 03/11/24
guaifenesin 100 mg/5 mL oral liquid (Robafen) 100 mg PO Q4HPRN PRN cough 03/11/24
ibuprofen 200 mg tablet 400 mg PO Q6HPRN PRN mild pain 03/11/24
levothyroxine 25 mcg tablet (Synthroid) 25 mcg PO DAILY Thyroid 03/11/24
triamcinolone acetonide 0.1 % topical cream 1 applic topical BIDPRN PRN hand eczema 03/11/24
bicalutamide 50 mg tablet 50 mg PO DAILY 09/11/24
methenamine hippurate 1 gram tablet 1 g PO BID 09/11/24
polyethylene glycol 3350 17 gram oral powder packet (Miralax) 17 g PO DAILY 09/11/24
Review of Systems
-
History Source: Patient
A 12 point ROS was completed and negative except as noted: Yes
Constitutional: Reports No Symptoms
EENT: Reports No Symptoms
Respiratory: Reports No Symptoms
Cardiac: Reports No Symptoms
Abdomen/GI: Reports No Symptoms
: Reports No Symptoms
Musculoskeletal: Reports No Symptoms
Skin: Reports No Symptoms
Neurological: Reports No Symptoms
Endocrine: Reports No Symptoms
Hematologic/Lymphatic: Reports No Symptoms
Psych: Reports No Symptoms
Physical Exam
Vital Signs
Vital Signs
Temp Pulse Resp BP Pulse Ox
98.4 F 69 22 151/76 98
09/11/24 17:35 09/11/24 19:16 09/11/24 19:16 09/11/24 17:35 09/11/24 19:16
Physical Exam
General: Well Developed, Well Nourished and No Apparent Distress
HEENT: NormoCephalic, Moist mucous membranes and Atraumatic
Respiratory: Clear
Cardiac: S1/S2 and Regular Rhythm; No Murmur or Rub
GI: Soft, Non Tender, Non Distended and Normal Bowel Sounds; No Organomegaly
Rectal: Deferred by Provider
Musculoskeletal: No Clubbing, No Cyanosis and No Edema
Skin: No Rash
Neuro: Nonfocal/grossly intact
Laboratory Results
-
09/11/24 18:07
09/11/24 18:07
Laboratory Results
Lactic Acid 0.8 mmol/L (0.7-2.0) 09/11/24 18:08
Total Bilirubin 0.2 mg/dl (0.2-1.3) 09/11/24 18:07
AST 30 U/L (17-59) 09/11/24 18:07
ALT 18 U/L (0-50) 09/11/24 18:07
Alkaline Phosphatase 82 U/L (38-126) 09/11/24 18:07
Data Reviewed
-
Lab Data: Labs Reviewed by me
Old Records: Reviewed
Impression/Plan
-
IMPRESSION:
PLAN:
# Influenza infection
-Chest x-ray no obvious infiltrates, report pending
-IV fluids
-Tylenol, ibuprofen as needed
-Tamiflu started although unclear onset of symptoms
# Hyponatremia secondary to SIADH/decreased p.o. intake
-Appears euvolemic
-IV fluids given, hold further fluids
-Check urine sodium, osmolality
-Will give hypertonic saline at 20 cc/hr as per nephro
-48 ounce fluid restriction
-Check BMP at 2 AM
Essential hypertension
-Continue amlodipine, losartan, metoprolol
History of possible CHF
-Volume overload on prior chest x-ray
Prostate cancer
BPH
-Continue Casodex
Schizoaffective disorder
Mental retardation
Hypothyroidism
-Continue levothyroxine
Full code
DVT prophylaxis�heparin
Regular diet
[2024-09-11] MEDS: SODIUM CHLORIDE 3% 250 IV (20:58)
[2024-09-11 21:19] LABS: Osmolality Urine 202 mOsm/kg (300-900)
[2024-09-11 21:29] LABS: Urine Sodium 59 mmol/L (30-90)
[2024-09-12] VITALS (16 sets, daily range): BP systolic 107–154; BP diastolic 59–97; BMI 31.8
[2024-09-12 05:02] LABS: % Basophils 0.8 % (0-2); % Eosinophils 2.6 % (0-6); % Immature Granulocytes 0.2 % (0-0.5); % Lymphocytes 25.4 % (20.5-51.1); % Monocytes 12.1 % (1.7-9.3); % Neutrophils 58.9 % (42.2-75.2); Absolute Eosinophils 0.1 10^3/uL (0-0.7); Absolute Lymphocytes 1.3 10^3/uL (1.2-3.4); Absolute Monocytes 0.6 10^3/uL (0.1-0.6); Absolute Neutrophils 2.9 10^3/uL (1.4-6.5); Hematocrit 35.1 % (39.0-52.0); Hemoglobin 12.3 g/dL (13.0-18.0); Mean Corpuscular Hgb 30.4 pg (27.0-31.0); Mean Corpuscular Volume 86.7 fL (80.0-94.0); Mean Platelet Volume 8.9 fL (7.4-10.4); Nucleated Red Blood Cells % 0 % (-); Platelet Count 289 10^3/uL (130-400); Red Blood Cell Count 4.05 10^6/uL (4.70-6.10); Red Cell Dist. Width 12.6 % (11.5-14.5)
[2024-09-12 05:26] LABS: ALT (SGPT) 16 U/L (0-50); AST (SGOT) 25 U/L (17-59); Albumin 3.6 g/dl (3.5-5.0); Alkaline Phosphatase 82 U/L (38-126); Blood Urea Nitrogen 10 mg/dl (9-20); Calcium 8.3 mg/dl (8.4-10.2); Carbon Dioxide 24 mmol/L (22-30); Chloride 94 mmol/L (98-107); Estimated Creatinine Clearance 107 ml/min; Glucose 104 mg/dl (70-99); Sodium 128 mmol/L (135-145); Total Bilirubin 0.2 mg/dl (0.2-1.3); Total Protein 6.5 g/dl (6.3-8.2); eGFR > 60.00
--- NOTE | 2024-09-12 08:40 | W.PN.HOSP.TC ---
Today's Communication/Plan
-
see bold
Assessment / Plan
Assessment / Plan
74-year-old male past medical history of BPH, possible CHF, hypertension, schizoaffective disorder, mental retardation, hyponatremia, hypothyroidism, presenting to the emergency room for upper respiratory symptoms. He has been having cough,
sneezing, rhinorrhea and diarrhea and decreased appetite and wheezing. He has been in contact with multiple other residents with the flu. Patient cannot provide any history at this time and he is answering no to everything.
Denies fevers or chills, headache, sore throat, chest pain, urinary symptoms or dizziness.
# Influenza infection
Chest x-ray negative for pneumonia, unclear onset of symptoms
Continue Tamiflu and supportive care
# Hyponatremia secondary to SIADH/decreased p.o. intake
Appears euvolemic
Status post hypertonic saline as per nephrology recommendation
Sodium improved at 128 today, was 120 upon admission
Check TSH, a.m. cortisol, continue fluid restriction, trend sodium
Essential hypertension
-Continue amlodipine, losartan, metoprolol
History of possible CHF
-Volume overload on prior chest x-ray
Prostate cancer
BPH
Chronic indwelling Mckeon
-Continue Casodex
-09/12 change Mckeon and send urine analysis as per POA request
Schizoaffective disorder
Intellectual disability
� From [facility]
Hypothyroidism
-Continue levothyroxine
Obesity due to excess calories
� Affects all aspects of care
DVT prophylaxis�subcu Lovenox
Full code
Total time spent to see the patient on the floor, examine the patient, review data and lab results, discuss treatment plan with patient, nursing staff around 40 minutes.
Physical Exam
General: No acute distress
HEENT: Normocephalic, Atraumatic, EOMI, MMM
Respiratory: Clear to Auscultation bilaterally
Cardiac: Normal S1/S2, Regular Rate and Rhythm
GI: Soft, Nontender, Nondistended, Normal Bowel Sounds
Extremities: No Clubbing, Cyanosis, or Edema
Neuro: Intellectual delay noted
Anticipated Discharge: 24 - 48 hours
Subjective/Interval History
-
Date of Service: September 12, 2024
Patient denies shortness of breath, denies coughing. No fever, no vomiting.
Objective Data
-
Labs:
Laboratory Results
09/12/24 09/12/24 09/12/24
04:53 04:53 04:53
WBC 5.0
Hgb 12.3 L
Hct 35.1 L
Plt Count 289
Sodium 128 L D Cancelled
Potassium 4.0 Cancelled
Chloride 94 L
Carbon Dioxide
BUN
Creatinine
Glucose
Calcium
Total Bilirubin
AST
ALT
Alkaline Phosphatase
09/12/24 09/12/24 09/12/24
04:53 04:53 04:53
WBC
Hgb
Hct
Plt Count
Sodium
Potassium
Chloride Cancelled
Carbon Dioxide 24 Cancelled
BUN 10 Cancelled
Creatinine 0.6 L
Glucose
Calcium
Total Bilirubin
AST
ALT
Alkaline Phosphatase
09/12/24 09/12/24 09/12/24
04:53 04:53 04:53
WBC
Hgb
Hct
Plt Count
Sodium
Potassium
Chloride
Carbon Dioxide
BUN
Creatinine Cancelled
Glucose 104 H Cancelled
Calcium 8.3 L Cancelled
Total Bilirubin 0.2
AST 25
ALT 16
Alkaline Phosphatase 82
Vital Signs:
Vital Signs
Temp Pulse Resp BP Pulse Ox
98.2 F 70 19 127/74 96
09/12/24 05:30 09/11/24 22:00 09/11/24 22:00 09/11/24 22:00 09/12/24 06:20
I&O
09/11/24 09/12/24 09/13/24
06:59 06:59 06:59
Intake Total 160 / 160
Output Total 2400 / 2400
Balance -2240 / -2240
[2024-09-12] MEDS: SYNTHROID 25 MCG PO (09:33)
[2024-09-12] MEDS: HEPARIN 5000 UNITS SC ×2 (09:33→20:35)
[2024-09-12] MEDS: TAMIFLU 75 MG PO ×2 (09:33→20:35)
[2024-09-12] MEDS: MIRALAX 17 GRAMS PO (09:33)
[2024-09-12] MEDS: HIPREX 1 GRAM PO ×2 (09:33→20:35)
[2024-09-12] MEDS: LOPRESSOR 50 MG PO ×2 (09:33→17:15)
[2024-09-12] MEDS: CASODEX 50 MG PO (09:33)
[2024-09-12] MEDS: COZAAR 100 MG PO (09:33)
[2024-09-12 13:38] LABS: Urine Albumin 1+ (Neg - Trace); Urine Bilirubin Negative (Negative); Urine Character Slightly Cloudy (Clear); Urine Color Yellow; Urine Glucose Negative (Negative); Urine Ketone Negative (Negative); Urine Leukocyte 2+ (Negative); Urine Nitrite Negative (Negative); Urine Occult Blood 3+ (Negative); Urine Urobilinogen Negative (Neg - 1+)
[2024-09-12 13:54] LABS: Urine Mucus Many
[2024-09-12 13:56] LABS: Urine Amorphous Seen; Urine Squamous Cell 0-2 /LPF (Few)
[2024-09-12 14:00] LABS: Urine White Cell 70-80 /HPF (0-5)
[2024-09-12 14:01] LABS: Urine Bacteria Few (Negative)
--- NOTE | 2024-09-12 14:10 | PTCARENOTE ---
Pt. arrived to unit from ED via bed. Pt. VSS, no c/o pain at this time. Call toro within reach.
--- NOTE | 2024-09-12 15:59 | W.CON.NEPH ---
Consultation
-
Date/Time Consultation Requested: 09/12/2024 4:00 PM
Date/Time Consultation Performed: 09/12/2024 4:00 PM
Requesting Provider: Dr. Moreno
Performing Provider: Dr. Stroud
Reason for Consultation: Hyponatremia
Medical History
-
Chief Complaint: Hyponatremia
History of Present Illness:
Mr. Lucero is a 74 YOM with PMH of intellectual disability, HTN (on amlodipine losartan and metoprolol), BPH, CHF (off diuretics), hypothyroidism( on levothyroxine), schizoaffective disorder, and previous hyponatremia requiring treatment in February
2023 who presented last evening with symptoms of cough sneezing rhinorrhea and diarrhea. He was found to be influenza A positive. On presentation his serum sodium level was 120. I was contacted by the admitting physician last evening and we
agreed to provide 3% saline as this had been efficacious in the past treating his hyponatremia. His serum sodium level has increased from 120-128. Urine osmolality of 202 was equivocal in regards to ADH.
Past Medical History
Essential Hypertension
BPH
Schizoaffective Disorder
Moderate Intellectual Disability
Past Medical History: Other
Past Surgical History: None
Social History
unable to obtain full social history due to disability
Living: Other ([facility])
Family History
no ckd known
Family History: Not Pertinent
Allergies / Home Medications
Allergy/AdvReac Type Severity Reaction Status Date / Time
No Known Allergies Allergy Verified 09/11/24 17:39
�Medication �Instructions �Recorded �Confirmed �Type
amlodipine 10 mg tablet 10 mg PO QPM Blood Pressure 12/15/21 09/11/24 History
losartan 100 mg tablet (Cozaar) 100 mg PO DAILY Blood Pressure 12/15/21 09/11/24 History
metoprolol tartrate 50 mg tablet 50 mg PO BID@0800,1600 Blood 12/15/21 09/11/24 History
Pressure
acetaminophen 325 mg tablet 650 mg PO Q4HPRN PRN mild 03/11/24 09/11/24 History
(Tylenol) pain/fever
carbamide peroxide 6.5 % ear drops 4 drp EACH EAR MOWEFR@2000 03/11/24 09/11/24 History
(Debrox)
diphenoxylate-atropine 2.5 1 tab PO QIDPRN PRN diarrhea 03/11/24 09/11/24 History
mg-0.025 mg tablet (Lomotil)
guaifenesin 100 mg/5 mL oral 100 mg PO Q4HPRN PRN cough 03/11/24 09/11/24 History
liquid (Robafen)
ibuprofen 200 mg tablet 400 mg PO Q6HPRN PRN mild pain 03/11/24 09/11/24 History
levothyroxine 25 mcg tablet 25 mcg PO DAILY Thyroid 03/11/24 09/11/24 History
(Synthroid)
triamcinolone acetonide 0.1 % 1 applic topical BIDPRN PRN hand 03/11/24 09/11/24 History
topical cream eczema
bicalutamide 50 mg tablet 50 mg PO DAILY 09/11/24 09/11/24 History
methenamine hippurate 1 gram tablet 1 g PO BID 09/11/24 09/11/24 History
polyethylene glycol 3350 17 gram 17 g PO DAILY 09/11/24 09/11/24 History
oral powder packet (Miralax)
Review of Systems
-
All other systems: Negative unless noted
Constitutional: Other
EENT: Runny Nose
Respiratory: Cough and Other (Sneezing)
Abdomen/GI: Diarrhea and Anorexia
Physical Exam
Vital Signs
Vital Signs
Temp Pulse Resp BP Pulse Ox
97.9 F 75 18 125/69 97
09/12/24 14:22 09/12/24 14:22 09/12/24 14:22 09/12/24 14:22 09/12/24 14:22
Lab Results
09/12/24 04:53
09/12/24 04:53
WBC 5.0 10^3/uL (4.8-10.8) 09/12/24 04:53
RBC 4.05 10^6/uL (4.70-6.10) L 09/12/24 04:53
Hgb 12.3 g/dL (13.0-18.0) L 09/12/24 04:53
Hct 35.1 % (39.0-52.0) L 09/12/24 04:53
Plt Count 289 10^3/uL (130-400) 09/12/24 04:53
Sodium 128 mmol/L (135-145) L D 09/12/24 04:53
Sodium Cancelled 09/12/24 04:53
Potassium 4.0 mmol/L (3.5-5.1) 09/12/24 04:53
Potassium Cancelled 09/12/24 04:53
Chloride 94 mmol/L (98-107) L 09/12/24 04:53
Chloride Cancelled 09/12/24 04:53
Carbon Dioxide 24 mmol/L (22-30) 09/12/24 04:53
Carbon Dioxide Cancelled 09/12/24 04:53
BUN 10 mg/dl (9-20) 09/12/24 04:53
BUN Cancelled 09/12/24 04:53
Creatinine 0.6 mg/dL (0.7-1.3) L 09/12/24 04:53
Creatinine Cancelled 09/12/24 04:53
eGFR > 60.00 09/12/24 04:53
eGFR Cancelled 09/12/24 04:53
Glucose 104 mg/dl (70-99) H 09/12/24 04:53
Glucose Cancelled 09/12/24 04:53
Calcium 8.3 mg/dl (8.4-10.2) L 09/12/24 04:53
Calcium Cancelled 09/12/24 04:53
Albumin 3.6 g/dl (3.5-5.0) 09/12/24 04:53
Physical Exam
General: AOx3, Nontoxic , NAD
HEENT: PERRL, EOMI, Anicteric, Conjunctivae Clear, Ear/Nose Intact, Hearing Normal, Oropharynx Clear/Moist, Dentition Intact, Facial Symmetry, Neck Supple, Neck: Trachea Midline, No JVD and No Thyromegaly, no Bruits
Respiratory: Clear to auscultation bilaterally with normal lung exersion
Cardiac: S1/S2 and Regular Rate/Rhythm
Breast: Deferred by me
Abdomen: Soft, Nontender, Nondistended, Normal Bowel Sounds and No Hepatosplenomegaly
Rectal: Deferred by Provider
Genito-urinary: No Costovertebral Tenderness
Extremities: No Clubbing, No Cyanosis and No Edema
Skin: No Rash or open lesions
Neuro: Nonfocal/Grossly Intact, CN II-XII (Intact) and Strength (Musculoskeletal exam 5 out of 5 both upper and lower extremities)
Hematologic/Lymphatic: No Cervical Lymphadenopathy, No Submandibular Lymphadenopathy and No Supraclavicular Lymphadenopathy
Psych: Mood/afflect pleasant, Insight/judgement good and Appropriate
Vascular: plus 2 pedal and radial pulses
Data Reviewed
-
Radiology: Image Personally Visualized and interpreted (Chest x-ray personally reviewed: no chf or PNA process)
Medical Tests (Nuc Med, Echo etc): Other (EKG report reviewed sinus rhythm with right axis deviation at 72 beats per)
Labs: Labs Reviewed by me ([facility] CBC urine osmolality)
Old Records: Reviewed (Reviewed previous nephrology consultation during similar presentation with hyponatremia on March 12, 2024. Last sodium level noted was 135 in February 2024)
Assessment/Plan
-
Impression:
Euvolemic hyponatremia (120)
Hypertension
Influenza A positive
Mentally handicapped
Hypothyroidism
Schizoaffective disorder
BPH
Plan:
-Serum sodium level correcting to 128, no further hypertonic saline in the
-Maintain 48 ounce fluid restriction for now
-I suspect underlying upper respiratory infection is aggravating ADH in the setting of chronic SIADH
-Hypertension well-controlled on his current oral antihypertensive
-recheck lytes
[2024-09-12 17:10] LABS: Carbon Dioxide 23 mmol/L (22-30); Chloride 95 mmol/L (98-107); Potassium 4.5 mmol/L (3.5-5.1); Sodium 128 mmol/L (135-145)
[2024-09-12] MEDS: NORVASC 10 MG PO (17:16)
[2024-09-13 03:45] VITALS: BP 124/66
[2024-09-13] MEDS: SYNTHROID 25 MCG PO (05:37)
[2024-09-13 07:40] VITALS: BP 131/84
[2024-09-13] MEDS: HEPARIN 5000 UNITS SC ×2 (08:31→20:20)
[2024-09-13] MEDS: LOPRESSOR 50 MG PO ×2 (08:32→17:08)
[2024-09-13] MEDS: TAMIFLU 75 MG PO ×2 (08:32→20:20)
[2024-09-13] MEDS: COZAAR 100 MG PO (08:32)
[2024-09-13] MEDS: HIPREX 1 GRAM PO ×2 (08:33→20:20)
[2024-09-13] MEDS: CASODEX 50 MG PO (08:33)
[2024-09-13] MEDS: MIRALAX 17 GRAMS PO (08:33)
--- NOTE | 2024-09-13 09:05 | W.PN.HOSP.TC ---
Today's Communication/Plan
-
Cleared by nephrology for discharge today
Assessment / Plan
Assessment / Plan
74-year-old male past medical history of BPH, possible CHF, hypertension, schizoaffective disorder, mental retardation, hyponatremia, hypothyroidism, presenting to the emergency room for upper respiratory symptoms. He has been having cough,
sneezing, rhinorrhea and diarrhea and decreased appetite and wheezing. He has been in contact with multiple other residents with the flu. Patient cannot provide any history at this time and he is answering no to everything.
Denies fevers or chills, headache, sore throat, chest pain, urinary symptoms or dizziness.
# Influenza infection
Chest x-ray negative for pneumonia, unclear onset of symptoms
Medically stable for discharge on Tamiflu to complete a 5-day course
Follow-up with PCP in 1 week
# Hyponatremia secondary to SIADH/decreased p.o. intake
Appreciate nephrology input, suspect influenza infection is aggravating ADH in the setting of SIADH
Status post hypertonic saline as per nephrology recommendation
Sodium improved at 128 today, was 120 upon admission
Cleared by nephrology for discharge, continue fluid restriction, check BMP with PCP in 1 week
Essential hypertension
-Continue amlodipine, losartan, metoprolol
History of possible CHF
-Volume overload on prior chest x-ray
Prostate cancer
BPH
Chronic indwelling Mckeon
-Continue Casodex
-09/12 changed Mckeon and send urine analysis as per POA request
Schizoaffective disorder
Intellectual disability
� From prison
Hypothyroidism
-Continue levothyroxine
Obesity due to excess calories
� Affects all aspects of care
DVT prophylaxis�subcu Lovenox
Full code
Physical Exam
General: No acute distress
HEENT: Normocephalic, Atraumatic, EOMI, MMM
Respiratory: Clear to Auscultation bilaterally
Cardiac: Normal S1/S2, Regular Rate and Rhythm
GI: Soft, Nontender, Nondistended, Normal Bowel Sounds
Extremities: No Clubbing, Cyanosis, or Edema
Neuro: Intellectual delay noted
Anticipated Discharge: Today
Subjective/Interval History
-
Date of Service: September 13, 2024
No acute events overnight. Denies chest pain, denies shortness of breath. No fever, no vomiting.
Objective Data
-
Labs:
Laboratory Results
09/13/24
08:24
Sodium Pending
Potassium Pending
Chloride Pending
Carbon Dioxide Pending
BUN Pending
Creatinine Pending
Glucose Pending
Calcium Pending
Vital Signs:
Vital Signs
Temp Pulse Resp BP Pulse Ox
97.5 F 72 18 131/84 98
09/13/24 07:40 09/13/24 08:32 09/13/24 07:40 09/13/24 08:32 09/13/24 07:40
I&O
09/12/24 09/13/24 09/14/24
06:59 06:59 06:59
Intake Total 160 / 160 960 / 960
Output Total 2400 / 2400 1600 / 1600
Balance -2240 / -2240 -640 / -640
[2024-09-13 09:14] LABS: Blood Urea Nitrogen 12 mg/dl (9-20); Calcium 8.4 mg/dl (8.4-10.2); Carbon Dioxide 26 mmol/L (22-30); Chloride 93 mmol/L (98-107); Estimated Creatinine Clearance 91 ml/min; Glucose 101 mg/dl (70-99); Potassium 4.5 mmol/L (3.5-5.1); Sodium 128 mmol/L (135-145); eGFR > 60.00
[2024-09-13 09:44] LABS: Cortisol, Random 8.3 ug/dl; TSH Reflex To Free T4 4.54 uIU/ml (0.47-4.68)
[2024-09-13 11:44] VITALS: BP 122/80
--- NOTE | 2024-09-13 13:30 | W.PN.NEPH.PH ---
Today's Communication / Plan
-
okay for discharge from renal
Assessment/Plan
-
Impression:
Euvolemic hyponatremia (120)
Hypertension
Influenza A positive
Mentally handicapped
Hypothyroidism
Schizoaffective disorder
BPH
Plan:
-Serum sodium level correcting to 128, no further hypertonic saline in the
-Maintain 48 ounce fluid restriction for now
-I suspect underlying upper respiratory infection is aggravating ADH in the setting of chronic SIADH
-Hypertension well-controlled on his current oral antihypertensive
sodium remains at 128 okay for discharge from renal standpoint
-
-
Date of Service: September 13, 2024
CC / HPI / ROS
-
all notes reviewed patient without chest pain or shortness of breath
serum sodium stable
Labs
-
Labs:
WBC 5.0 10^3/uL (4.8-10.8) 09/12/24 04:53
RBC 4.05 10^6/uL (4.70-6.10) L 09/12/24 04:53
Hgb 12.3 g/dL (13.0-18.0) L 09/12/24 04:53
Hct 35.1 % (39.0-52.0) L 09/12/24 04:53
Plt Count 289 10^3/uL (130-400) 09/12/24 04:53
Sodium 128 mmol/L (135-145) L 09/13/24 08:24
Potassium 4.5 mmol/L (3.5-5.1) 09/13/24 08:24
Chloride 93 mmol/L (98-107) L 09/13/24 08:24
Carbon Dioxide 26 mmol/L (22-30) 09/13/24 08:24
BUN 12 mg/dl (9-20) 09/13/24 08:24
Creatinine 0.7 mg/dL (0.7-1.3) 09/13/24 08:24
eGFR > 60.00 09/13/24 08:24
Glucose 101 mg/dl (70-99) H 09/13/24 08:24
Calcium 8.4 mg/dl (8.4-10.2) 09/13/24 08:24
Albumin 3.6 g/dl (3.5-5.0) 09/12/24 04:53
Physical Exam
-
Vital Signs:
Vital Signs
Temp Pulse Resp BP Pulse Ox
97.7 F 63 20 122/80 99
09/13/24 11:44 09/13/24 11:44 09/13/24 11:44 09/13/24 11:44 09/13/24 11:44
Cardiovascular:: Regular rate and rhythm
Respiratory:: Bilateral: Coarse
Lung Excursion:: Normal
Abdomen:: Nontender and Soft
Bowel Sounds:: Normal
Extremity Edema:: None: Bilateral:
--- NOTE | 2024-09-13 13:36 | W.PN.UPDATE ---
Update Note
Progress Note Update
Patient was not discharged 09/13.
This note is generated for billing purposes.
Total time spent to see the patient on the floor, examine the patient, review data and lab results, discuss treatment plan with patient, nursing staff around 50 minutes.
--- NOTE | 2024-09-13 14:44 | W.DCSUMMARY ---
Discharge Summary
Discharge Data
Date of Admission: 09/11/24
Date of Discharge: 09/13/24
-
Pending Results: No
Hospital Course
Discharge diagnosis:
Acute on chronic hyponatremia
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
Acute influenza A infection
Essential hypertension
History of prostate cancer with chronic indwelling Mckeon
Schizoaffective disorder
Intellectual disability
Hypothyroidism
Obesity due to excess calories
Consults: Nephrology
Chest XR: No evidence of pneumonia. Possible mild interstitial edema.
Hospital course:
74-year-old male with a past medical history of intellectual disability, schizoaffective disorder, SIADH, and prostate cancer with chronic indwelling Mckeon presented from his [facility] with URI symptoms. Patient was found to have influenza A and
hyponatremia of 120. He was started on Tamiflu. He was seen in conjunction with nephrology, and treated with hypertonic saline. He was also treated with fluid restriction. His sodium improved to 128.
Patient is cleared by nephrology for discharge. He needs to continue a 48 ounce fluid restriction, and get a repeat BMP with his PCP in 1 week. He will be discharged on Tamiflu to complete a 5-day course.
Disposition: Home, at his [facility]
Discharge planning: Required 42-minute
Discharge Plan
-
Patient Disposition: Home (Routine Discharge)
Discharge Diagnosis/Procedures: Acute influenza infection, hyponatremia
Condition: Fair
Diet: Restrict fluids to 48 oz
Blood Work: BMP with PCP in 1 week
Activity Restrictions/Additional Instructions:
You have low sodium, likely from syndrome of inappropriate antidiuretic hormone secretion.
Nephrology recommends continuing a 48 ounce fluid restriction.
Your sodium was 128 on the day of discharge, improved from 120.
Follow-up with your primary care doctor in 1 week, where you will need repeat blood work at that time with your primary care doctor.
Referrals:
Chapincito Benson MD [Family Provider] - in one week
Prescriptions:
New
oseltamivir 75 mg Capsule
75 mg PO BID Qty: 6 0RF
Continued
losartan [Cozaar] 100 MG tablet
100 mg PO DAILY
amlodipine 10 MG tablet
10 mg PO QPM
metoprolol tartrate 50 MG tablet
50 mg PO BID@0800,1600
acetaminophen [Tylenol] 325 mg Tablet
650 mg PO Q4HPRN PRN (Reason: mild pain/fever)
diphenoxylate-atropine [Lomotil] 2.5-0.025 mg Tablet
1 tab PO QIDPRN PRN (Reason: diarrhea)
guaifenesin [Robafen] 100 mg/5 mL Liquid
100 mg PO Q4HPRN PRN (Reason: cough)
triamcinolone acetonide 0.1 % Cream
1 applic TOPICAL BIDPRN PRN (Reason: hand eczema)
levothyroxine [Synthroid] 25 mcg Tablet
25 mcg PO DAILY
ibuprofen 200 mg Tablet
400 mg PO Q6HPRN PRN (Reason: mild pain)
Debrox 6.5 % Drops
4 drp EACH EAR MOWEFR@1999
bicalutamide 50 mg Tablet
50 mg PO DAILY
polyethylene glycol 3350 [Miralax] 17 gram Powder In Packet
17 g PO DAILY
Rx Instructions:
Hold for loose stools
methenamine hippurate 1 gram Tablet
1 g PO BID
Discharge Orders:
Discharge Patient (As Directed); Ordered 09/13/24
Ordered By: Asael Moreno
Discharge Date and Time
Print Language: BULGARIAN
--- NOTE | 2024-09-13 14:45 | CM ---
Addendum entered by Lola Godoy 09/13/24 16:05:
Call received from [facility] - they cannot accept Casper back due to staffing; they will pick him up from the hospital in AM.
Addendum entered by Lola Godoy 09/13/24 14:57:
CM spoke with Aliza at [facility] to notify of pt's discharge, not [facility]. Aliza awaiting pt's return, advised ambulance transport time is pending. RN to call report.
Original Note:
Millicent is unable to sign IMM. KEIRY verbally reviewed IMM with GRETCHEN Christensen at [facility]; street address for facility is [address] [place] [address], [place] [address]
Ambulance transport requested.
Time of transport pending.
Report: [phone]
[2024-09-13 15:05] VITALS: BP 116/72
[2024-09-13] MEDS: NORVASC 10 MG PO (17:10)
[2024-09-13 19:15] VITALS: BP 113/64
[2024-09-13] MEDS: DEBROX EAR DROPS 1 DROP BOTH EARS (20:36)
[2024-09-13 23:35] VITALS: BP 130/79
[2024-09-14] VITALS (7 sets, daily range): BP systolic 102–123; BP diastolic 53–71; BMI 31.9
[2024-09-14] MEDS: SYNTHROID 25 MCG PO (05:51)
[2024-09-14 06:46] LABS: Blood Urea Nitrogen 13 mg/dl (9-20); Calcium 8.6 mg/dl (8.4-10.2); Carbon Dioxide 25 mmol/L (22-30); Chloride 93 mmol/L (98-107); Estimated Creatinine Clearance 91 ml/min; Glucose 98 mg/dl (70-99); Potassium 4.5 mmol/L (3.5-5.1); Sodium 127 mmol/L (135-145); eGFR > 60.00
--- NOTE | 2024-09-14 08:05 | W.PN.HOSP.TC ---
Today's Communication/Plan
-
[facility] as per nephrology
Hopeful for discharge tomorrow with improvement in sodium
Assessment / Plan
Assessment / Plan
74-year-old male past medical history of BPH, possible CHF, hypertension, schizoaffective disorder, mental retardation, hyponatremia, hypothyroidism, presenting to the emergency room for upper respiratory symptoms. He has been having cough,
sneezing, rhinorrhea and diarrhea and decreased appetite and wheezing. He has been in contact with multiple other residents with the flu. Patient cannot provide any history at this time and he is answering no to everything.
Denies fevers or chills, headache, sore throat, chest pain, urinary symptoms or dizziness.
# Influenza infection
Chest x-ray negative for pneumonia, unclear onset of symptoms
Medically stable for discharge on Tamiflu to complete a 5-day course
Follow-up with PCP in 1 week
# Hyponatremia secondary to SIADH/decreased p.o. intake
Appreciate nephrology input, suspect influenza infection is aggravating ADH in the setting of SIADH
Status post hypertonic saline as per nephrology recommendation
Sodium 126 today, was 128, was 120 upon admission
[facility] as per nephrology
Hopeful for discharge tomorrow with improvement in sodium
#Constipation
-Increase laxatives
Essential hypertension
-Continue amlodipine, losartan, metoprolol
History of possible CHF
-Volume overload on prior chest x-ray
Prostate cancer
BPH
Chronic indwelling Mckeon
Colonization of Mckeon
-Continue Casodex
-09/12 changed Mckeon and sent urine analysis as per POA request
-Colonization of Mckeon -patient is afebrile, no leukocytosis. No need to treat
Schizoaffective disorder
Intellectual disability
� From [facility]
Hypothyroidism
-Continue levothyroxine
Obesity due to excess calories
� Affects all aspects of care
DVT prophylaxis�subcu Lovenox
Full code
Total time spent to see the patient on the floor, examine the patient, review data and lab results, discuss treatment plan with patient, nursing staff around 50 minutes.
Physical Exam
General: No acute distress
HEENT: Normocephalic, Atraumatic, EOMI, MMM
Respiratory: Clear to Auscultation bilaterally
Cardiac: Normal S1/S2, Regular Rate and Rhythm
GI: Soft, Nontender, Nondistended, Normal Bowel Sounds
Extremities: No Clubbing, Cyanosis, or Edema
Neuro: Intellectual delay noted
Anticipated Discharge: Within 24 hours
Subjective/Interval History
-
Date of Service: September 14, 2024
Patient denies chest pain, denies shortness of breath. No fever, no vomiting.
Objective Data
-
Labs:
Laboratory Results
09/14/24
05:59
Sodium 127 L
Potassium 4.5
Chloride 93 L
Carbon Dioxide 25
BUN 13
Creatinine 0.7
Glucose 98
Calcium 8.6
Vital Signs:
Vital Signs
Temp Pulse Resp BP Pulse Ox
97.8 F 78 18 123/66 97
09/14/24 04:30 09/14/24 03:40 09/14/24 03:40 09/14/24 03:40 09/14/24 03:40
I&O
09/13/24 09/14/24 09/15/24
06:59 06:59 06:59
Intake Total 960 / 960 840 / 840
Output Total 1600 / 1600 550 / 550 875 / 875
Balance -640 / -640 290 / 290 -875 / -875
[2024-09-14] MEDS: MIRALAX 17 GRAMS PO (08:57)
[2024-09-14] MEDS: HIPREX 1 GRAM PO ×2 (08:57→20:19)
[2024-09-14] MEDS: TAMIFLU 75 MG PO ×2 (08:57→20:19)
[2024-09-14] MEDS: COZAAR 100 MG PO (08:58)
[2024-09-14] MEDS: HEPARIN 5000 UNITS SC ×2 (08:58→20:19)
[2024-09-14] MEDS: CASODEX 50 MG PO (08:58)
[2024-09-14] MEDS: LOPRESSOR 50 MG PO ×2 (08:58→17:05)
--- NOTE | 2024-09-14 09:54 | CM ---
Addendum entered by Sarah Madrigal RN 09/14/24 12:16:
Discharge cancelled Na remains low. Svetlana contacted that discharge cancelled.
Addendum entered by Sarah Madrigal RN 09/14/24 10:15:
Spoke with family Svetlana [phone] reviewed dc plan and IMM She agrees with dc and plan.
Original Note:
MD entered order for discharge.
They will pick him up from the hospital in AM.
KEIRY spoke with Cristina [phone] [facility] regarding pt's discharge, Pt to have a repeat Labs and depending on result be dc back to [facility].
As per Cristina she said facility will provide transportin back to facility.
Reviewed IMM with Cristina she stated understanding.
RN at [facility]; street address for facility is [address] [place] [address], [place] [address]
Report: [phone]

PLAN To return to [facility]
[2024-09-14] MEDS: SAMSCA 15 MG PO (10:01)
[2024-09-14 11:38] LABS: Blood Urea Nitrogen 13 mg/dl (9-20); Calcium 8.3 mg/dl (8.4-10.2); Carbon Dioxide 23 mmol/L (22-30); Chloride 94 mmol/L (98-107); Estimated Creatinine Clearance 91 ml/min; Glucose 139 mg/dl (70-99); Sodium 126 mmol/L (135-145); eGFR > 60.00
[2024-09-14] MEDS: SENOKOT-S PO ×2 (12:49→20:18)
--- NOTE | 2024-09-14 14:17 | W.PN.NEPH.PH ---
Today's Communication / Plan
-
tolvaptan
Assessment/Plan
-
Impression:
Euvolemic hyponatremia (120)
Hypertension
Influenza A positive
Mentally handicapped
Hypothyroidism
Schizoaffective disorder
BPH
Plan:
-Serum sodium level correcting to 128, no further hypertonic saline in the
-Maintain 48 ounce fluid restriction for now
-I suspect underlying upper respiratory infection is aggravating ADH in the setting of chronic SIADH
-Hypertension well-controlled on his current oral antihypertensive
Sodium 126 today ordered tolvaptan 15mg x 1
-
-
Date of Service: September 14, 2024
CC / HPI / ROS
-
all notes reviewed patient without chest pain or shortness of breath
Labs
-
Labs:
WBC 5.0 10^3/uL (4.8-10.8) 09/12/24 04:53
RBC 4.05 10^6/uL (4.70-6.10) L 09/12/24 04:53
Hgb 12.3 g/dL (13.0-18.0) L 09/12/24 04:53
Hct 35.1 % (39.0-52.0) L 09/12/24 04:53
Plt Count 289 10^3/uL (130-400) 09/12/24 04:53
Sodium 126 mmol/L (135-145) L 09/14/24 10:44
Potassium 4.0 mmol/L (3.5-5.1) 09/14/24 10:44
Chloride 94 mmol/L (98-107) L 09/14/24 10:44
Carbon Dioxide 23 mmol/L (22-30) 09/14/24 10:44
BUN 13 mg/dl (9-20) 09/14/24 10:44
Creatinine 0.7 mg/dL (0.7-1.3) 09/14/24 10:44
eGFR > 60.00 09/14/24 10:44
Glucose 139 mg/dl (70-99) H 09/14/24 10:44
Calcium 8.3 mg/dl (8.4-10.2) L 09/14/24 10:44
Albumin 3.6 g/dl (3.5-5.0) 09/12/24 04:53
Physical Exam
-
Vital Signs:
Vital Signs
Temp Pulse Resp BP Pulse Ox
97.6 F 64 20 102/53 98
09/14/24 11:49 09/14/24 11:49 09/14/24 11:49 09/14/24 11:49 09/14/24 11:49
Cardiovascular:: Regular rate and rhythm
Respiratory:: Bilateral: Coarse
Lung Excursion:: Normal
Abdomen:: Nontender and Soft
Bowel Sounds:: Normal
Extremity Edema:: None: Bilateral:
[2024-09-14] MEDS: NORVASC 10 MG PO (17:05)
[2024-09-15] MEDS: SYNTHROID 25 MCG PO (05:39)
[2024-09-15 07:40] VITALS: BP 139/77
--- NOTE | 2024-09-15 07:52 | W.PN.HOSP.TC ---
Today's Communication/Plan
-
Discharge today
Assessment / Plan
Assessment / Plan
74-year-old male past medical history of BPH, possible CHF, hypertension, schizoaffective disorder, mental retardation, hyponatremia, hypothyroidism, presenting to the emergency room for upper respiratory symptoms. He has been having cough,
sneezing, rhinorrhea and diarrhea and decreased appetite and wheezing. He has been in contact with multiple other residents with the flu. Patient cannot provide any history at this time and he is answering no to everything.
Denies fevers or chills, headache, sore throat, chest pain, urinary symptoms or dizziness.
# Influenza infection
Chest x-ray negative for pneumonia, unclear onset of symptoms
Medically stable for discharge on Tamiflu to complete a 5-day course
Follow-up with PCP in 1 week
# Hyponatremia secondary to SIADH/decreased p.o. intake
Appreciate nephrology input, suspect influenza infection is aggravating ADH in the setting of SIADH
Status post hypertonic saline as per nephrology recommendation
Sodium 134 today, was 126, was 128, was 120 upon admission
Samsca as per nephrology
Cleared by nephrology for discharge
#Constipation
-Resolved on laxatives
Essential hypertension
-Continue amlodipine, losartan, metoprolol
History of possible CHF
-Volume overload on prior chest x-ray
Prostate cancer
BPH
Chronic indwelling Mckeon
Colonization of Mckeon
-Continue Casodex
-09/12 changed Mckeon and sent urine analysis as per POA request
-Colonization of Mckeon -patient is afebrile, no leukocytosis. No need to treat
Schizoaffective disorder
Intellectual disability
� From [facility]
Hypothyroidism
-Continue levothyroxine
Obesity due to excess calories
� Affects all aspects of care
DVT prophylaxis�subcu Lovenox
Full code
Physical Exam
General: No acute distress
HEENT: Normocephalic, Atraumatic, EOMI, MMM
Respiratory: Clear to Auscultation bilaterally
Cardiac: Normal S1/S2, Regular Rate and Rhythm
GI: Soft, Nontender, Nondistended, Normal Bowel Sounds
Extremities: No Clubbing, Cyanosis, or Edema
Neuro: Intellectual delay noted
Anticipated Discharge: Today
Subjective/Interval History
-
Date of Service: September 15, 2024
No acute events. Patient denies shortness of breath. No fever, no vomiting.
Objective Data
-
Labs:
Laboratory Results
09/15/24
07:17
Sodium Pending
Potassium Pending
Chloride Pending
Carbon Dioxide Pending
BUN Pending
Creatinine Pending
Glucose Pending
Calcium Pending
Vital Signs:
Vital Signs
Temp Pulse Resp BP Pulse Ox
97.6 F 67 20 122/66 97
09/14/24 22:10 09/14/24 22:10 09/14/24 22:10 09/14/24 22:10 09/14/24 22:30
I&O
09/14/24 09/15/24 09/16/24
06:59 06:59 06:59
Intake Total 840 / 840 1080 / 1080
Output Total 550 / 550 3025 / 3025
Balance 290 / 290 -1945 / -1945
[2024-09-15 08:42] LABS: Blood Urea Nitrogen 16 mg/dl (9-20); Calcium 8.9 mg/dl (8.4-10.2); Carbon Dioxide 25 mmol/L (22-30); Chloride 97 mmol/L (98-107); Estimated Creatinine Clearance 79 ml/min; Glucose 101 mg/dl (70-99); Potassium 4.6 mmol/L (3.5-5.1); Sodium 134 mmol/L (135-145); eGFR > 60.00
[2024-09-15] MEDS: MIRALAX 17 GRAMS PO (10:18)
[2024-09-15] MEDS: LOPRESSOR 50 MG PO (10:18)
[2024-09-15] MEDS: TAMIFLU 75 MG PO (10:18)
[2024-09-15] MEDS: SENOKOT-S 2 TABLET PO (10:19)
[2024-09-15] MEDS: COZAAR 100 MG PO (10:19)
[2024-09-15] MEDS: HIPREX 1 GRAM PO (10:19)
[2024-09-15] MEDS: HEPARIN 5000 UNITS SC (10:19)
[2024-09-15] MEDS: CASODEX 50 MG PO (10:19)
--- NOTE | 2024-09-15 10:34 | CM ---
CM reviewed chart, patient clear for discharge today per Hospitalist. Phone call to nurse Evans at [facility] [phone], asking for updated clinicals faxed to [phone]. Facility will provide transportation home. CM will
continue to follow for all discharge planning needs.
PLAN To return to [facility]
Report: [phone]
--- NOTE | 2024-09-15 15:32 | W.DCSUMMARY ---
Discharge Summary
Discharge Data
Date of Admission: 09/11/24
Date of Discharge: 09/15/24
-
Pending Results: No
Hospital Course
Discharge diagnosis:
Acute on chronic hyponatremia
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
Acute influenza A infection
Essential hypertension
History of prostate cancer with chronic indwelling Mckeon
Schizoaffective disorder
Intellectual disability
Hypothyroidism
Obesity due to excess calories
Consults: Nephrology
Chest XR: No evidence of pneumonia. Possible mild interstitial edema.
Hospital course:
74-year-old male with a past medical history of intellectual disability, schizoaffective disorder, SIADH, and prostate cancer with chronic indwelling Mckeon presented from his correction with URI symptoms. Patient was found to have influenza A and
hyponatremia of 120. He was started on Tamiflu. He was seen in conjunction with nephrology, and treated with hypertonic saline, and then Samsca. He was also treated with fluid restriction. His sodium improved to 134.
Patient is cleared by nephrology for discharge. He needs to continue a 48 ounce fluid restriction, and get a repeat BMP with his PCP in 1 week. He will be discharged on Tamiflu to complete a 5-day course.
Disposition: Home, at his correction
Discharge planning: Required 42-minute
Discharge Plan
-
Patient Disposition: Home (Routine Discharge)
Discharge Diagnosis/Procedures: Acute influenza infection, hyponatremia
Condition: Fair
Diet: Restrict fluids to 48 oz
Blood Work: BMP with PCP in 1 week
Activity Restrictions/Additional Instructions:
You have low sodium, likely from syndrome of inappropriate antidiuretic hormone secretion.
Nephrology recommends continuing a 48 ounce fluid restriction.
Your sodium was 128 on the day of discharge, improved from 120.
Follow-up with your primary care doctor in 1 week, where you will need repeat blood work at that time with your primary care doctor.
Referrals:
Chapincito Benson MD [Family Provider] - in one week
Prescriptions:
New
oseltamivir 75 mg Capsule
75 mg PO BID Qty: 6 0RF
Continued
losartan [Cozaar] 100 MG tablet
100 mg PO DAILY
amlodipine 10 MG tablet
10 mg PO QPM
metoprolol tartrate 50 MG tablet
50 mg PO BID@0800,1600
acetaminophen [Tylenol] 325 mg Tablet
650 mg PO Q4HPRN PRN (Reason: mild pain/fever)
diphenoxylate-atropine [Lomotil] 2.5-0.025 mg Tablet
1 tab PO QIDPRN PRN (Reason: diarrhea)
guaifenesin [Robafen] 100 mg/5 mL Liquid
100 mg PO Q4HPRN PRN (Reason: cough)
triamcinolone acetonide 0.1 % Cream
1 applic TOPICAL BIDPRN PRN (Reason: hand eczema)
levothyroxine [Synthroid] 25 mcg Tablet
25 mcg PO DAILY
ibuprofen 200 mg Tablet
400 mg PO Q6HPRN PRN (Reason: mild pain)
Debrox 6.5 % Drops
4 drp EACH EAR MOWEFR@1999
bicalutamide 50 mg Tablet
50 mg PO DAILY
polyethylene glycol 3350 [Miralax] 17 gram Powder In Packet
17 g PO DAILY
Rx Instructions:
Hold for loose stools
methenamine hippurate 1 gram Tablet
1 g PO BID
Discharge Orders:
Discharge Patient (As Directed); Ordered 09/13/24
Ordered By: Asael Moreno
Discharge Date and Time
Discharge Date/Time: 09/15/24 13:37
Print Language: CYPRIOT
== END 2024-09-15 13:37 | disposition home or self-care (01) | DRG 194 ==
LOC: 4 WEST ACU 20:43
PROVIDERS: Emergency Medicine; ADMITTING PHYSICIAN Hospitalist; ATTENDING PHYSICIAN Family Medicine; CONSULT PHYSICIAN Specialist; EMERGENCY PHYSICIAN Emergency Medicine; FAMILY PHYSICIAN Internal Medicine
DX: J10.1 Influenza due to other identified influenza virus with other respiratory manifestations (principal); E22.2 Syndrome of inappropriate secretion of antidiuretic hormone; C61 Malignant neoplasm of prostate; E03.9 Hypothyroidism, unspecified; N40.0 Benign prostatic hyperplasia without lower urinary tract symptoms; F71 Moderate intellectual disabilities; I10 Essential (primary) hypertension; F25.9 Schizoaffective disorder, unspecified; E66.09 Other obesity due to excess calories; Z68.32 Body mass index [BMI] 32.0-32.9, adult; Z79.890 Hormone replacement therapy; Z79.899 Other long term (current) drug therapy
CPT/HCPCS: 71046; 80048; 80051; 80053; 81003; 81015; 82533; 83605; 83935; 84300; 84443; 85025; 87070; 87077; 87086; 87186; 87502; 87811; 93005; 94640; 96360; 96361; 99285

== ENCOUNTER 2025-05-14 19:11 | Emergency (ER) | payer MEDICARE, SELFPAY ==
[2025-05-14 19:16] VITALS: BP 175/99
[2025-05-14 19:24] VITALS: BMI 27.2
--- NOTE | 2025-05-14 19:38 | ED.GENMED ---
History of Present Illness
General
Chief Complaint: Catheter/Tube Problem
Time Seen by Provider: 05/14/25 19:21
History of Present Illness
History of Present Illness:
FOCUSED PAST MEDICAL HISTORY
- The patient has a history of intellectual disability and resides at a [facility] living, schizoaffective disorder, BPH with chronic Mckeon
REVIEW OF OLD RECORDS
-
Note:
CHIEF COMPLAINT(S)
Rectal bleeding following bowel movement. and urinary leakage despite having Mckeon catheter
HISTORY OF PRESENT ILLNESS
The patient is a 74-year-old male who presented with rectal bleeding after passing a bowel movement. The bleeding was noted after frequent trips to the bathroom. The patient was found with a diaper soaked with urine, despite having a Mckeon catheter
in place. Upon catheterization and bladder scanning, 325 mL of urine was obtained, with initial findings showing a small blood clot, although this was not significant. During the examination, hemorrhoids were observed, raising the possibility of
bleeding hemorrhoids. The patient denies abdominal pain at the time of examination.
PHYSICAL EXAM
General: Alert, cooperative, pleasant, smiling, but lacks knowledge
Skin: Warm, dry.
Head: Normocephalic, atraumatic.
Neck: Supple, trachea midline.
Eye, Ears, Nose, and Mouth: Oral mucosa moist.
Cardiovascular: Normal peripheral perfusion, No edema. Heart rate 101 on the monitor
Respiratory: Respirations are non-labored.
Gastrointestinal: Abdomen is nondistended; no tenderness on palpation. Soft abdomen, external hemorrhoids noted with no active bleeding some of which may be thrombosed, empty rectal vault
Back: Normal range of motion, Normal alignment.
Musculoskeletal: Normal range of motion, normal strength.
Neurological: Awake and alert, could not state his age or name the month
Psychiatric: Consistent with developmental delay
PROBLEM LIST
- Acute: Rectal bleeding, Hemorrhoids
- Chronic: None stated
PLAN
Further evaluation and management for hemorrhoids, assess the need for additional intervention for rectal bleeding if symptoms persist or worsen. Monitor urinary output and continue to manage Mckeon catheter appropriately.
DIFFERENTIAL DIAGNOSIS
The Differential Diagnosis includes, in no particular order and is not limited to:
Mckeon catheter malfunction
1. Hemorrhoids
2. Anal fissures
3. Colorectal carcinoma
4. Diverticular disease
5. Colitis
6. Rectal polyps
7. Gastrointestinal bleeding secondary to anticoagulants
8. Angiodysplasia
9. Inflammatory bowel disease
10. Proctitis
Note:
CHIEF COMPLAINT(S)
Rectal bleeding following bowel movement. and urinary leakage despite having Mckeon catheter
HISTORY OF PRESENT ILLNESS
The patient is a 74-year-old male who presented with rectal bleeding after passing a bowel movement. The bleeding was noted after frequent trips to the bathroom. The patient was found with a diaper soaked with urine, despite having a Mckeon catheter
in place. Upon catheterization and bladder scanning, 325 mL of urine was obtained, with initial findings showing a small blood clot, although this was not significant. During the examination, hemorrhoids were observed, raising the possibility of
bleeding hemorrhoids. The patient denies abdominal pain at the time of examination.
PHYSICAL EXAM
General: Alert, cooperative, oriented to person, place, time, and situation.
Skin: Warm, dry.
Head: Normocephalic, atraumatic.
Neck: Supple, trachea midline.
Eye, Ears, Nose, and Mouth: Oral mucosa moist.
Cardiovascular: Normal peripheral perfusion, No edema.
Respiratory: Respirations are non-labored.
Gastrointestinal: Abdomen is nondistended; no tenderness on palpation.
Back: Normal range of motion, Normal alignment.
Musculoskeletal: Normal range of motion, normal strength.
Neurological: Alert and oriented to person, place, time, and situation, No focal neurological deficit observed.
Psychiatric: Cooperative, appropriate mood & affect.
PROBLEM LIST
- Acute: Rectal bleeding, Hemorrhoids
- Chronic: None stated
PLAN
Further evaluation and management for hemorrhoids, assess the need for additional intervention for rectal bleeding if symptoms persist or worsen. Monitor urinary output and continue to manage Mckeon catheter appropriately.
DIFFERENTIAL DIAGNOSIS
The Differential Diagnosis includes, in no particular order and is not limited to:
1. Hemorrhoids
2. Anal fissures
3. Colorectal carcinoma
4. Diverticular disease
5. Colitis
6. Rectal polyps
7. Gastrointestinal bleeding secondary to anticoagulants
8. Angiodysplasia
9. Inflammatory bowel disease
10. Proctitis
SUMMARY OF ENCOUNTER
The patient, a 74-year-old male, presented to the emergency department due to rectal bleeding after a bowel movement and issues with urinary leakage despite using a Mckeon catheter. Upon evaluation, it was noted that the urinary retention was still
present. A new Mckeon catheter was inserted, successfully draining over 300 mL of cloudy urine. Hemorrhoids were observed as a possible cause of the rectal bleeding. The patient was comfortable post-procedure.
ASSESSMENT
The patients urinary retention resolved with the new Mckeon catheter insertion. Hemorrhoids are suspected as the source of rectal bleeding.
PLAN
The plan includes further evaluation and management of hemorrhoids. If rectal bleeding persists or worsens, additional intervention may be necessary. The patients urinary output will be monitored, and appropriate catheter management will continue.
MEDICAL DECISION MAKING
-Complexity of Data Reviewed: DDx includes hemorrhoids, anal fissures, colorectal carcinoma, diverticular disease, colitis, rectal polyps, gastrointestinal bleeding secondary to anticoagulants, angiodysplasia, inflammatory bowel disease, and
proctitis.
-Data:
Category 1: Urine analysis was indirectly addressed by noting the drainage of cloudy urine.
-Risk: No immediate life-threatening issues were identified, and the patients symptoms improved with catheterization.
DIAGNOSIS
1. Urinary retention (ICD-10: R33.9)
2. Hemorrhoids (ICD-10: K64.9)
Past History
Past History
ED Past Medical History: Hypothyroidism and Psychiatric
ED Past Surgical History: None
Social History
Tobacco: Non-smoker
Alcohol: None
Drug: None
Personal: Single
Living: assisted living
Phy Exam
Physical Exam
Physical Exam:
See HPI
Course
Orders/Labs/Results
Orders:
Orders
05/14/25 19:21
Bladder Scan- Treatment ONCE
Mckeon Placement- Treatment ONCE
Reason for insertion: Acute Retention
Urinalysis Reflex To Culture Urgent
Date Specimen was Collected: 05/14/25
Time Specimen was Collected: 19:33
Vital Signs
Initial and Last Documented VS:
Initial Vital Signs
Temp Pulse Resp BP Pulse Ox
36.7 C 110 20 175/99 99
05/14/25 19:16 05/14/25 19:16 05/14/25 19:16 05/14/25 19:16 05/14/25 19:16
Last Documented Vital Signs
Temp Pulse Resp BP Pulse Ox
36.7 C 110 20 175/99 99
05/14/25 19:16 05/14/25 19:16 05/14/25 19:16 05/14/25 19:16 05/14/25 19:16
*Pulse Oximetry
SaO2: 99
Oxygen Mode of Delivery: Room air
Patient hypoxic: no
*Critical Care Note
Total Time (30-74mins, 75-104mins- exclusive of procedures): Not Applicable
ED Attending Note
-
Portions of this chart may have been created with voice recognition software.� Occasional wrong word or��sound alike� substitutions may have occurred due to the inherent limitations of voice recognition software.
Discharge Plan
Departure
Prescriptions:
No Action
losartan [Cozaar] 100 MG tablet
100 mg PO DAILY
amlodipine 10 MG tablet
10 mg PO QPM
metoprolol tartrate 50 MG tablet
50 mg PO BID@0800,1600
acetaminophen [Tylenol] 325 mg Tablet
650 mg PO Q4HPRN PRN (Reason: mild pain/fever)
diphenoxylate-atropine [Lomotil] 2.5-0.025 mg Tablet
1 tab PO QIDPRN PRN (Reason: diarrhea)
guaifenesin [Robafen] 100 mg/5 mL Liquid
100 mg PO Q4HPRN PRN (Reason: cough)
triamcinolone acetonide 0.1 % Cream
1 applic TOPICAL BIDPRN PRN (Reason: hand eczema)
levothyroxine [Synthroid] 25 mcg Tablet
25 mcg PO DAILY
ibuprofen 200 mg Tablet
400 mg PO Q6HPRN PRN (Reason: mild pain)
Debrox 6.5 % Drops
4 drp EACH EAR MOWEFR@1999
bicalutamide 50 mg Tablet
50 mg PO DAILY
polyethylene glycol 3350 [Miralax] 17 gram Powder In Packet
17 g PO DAILY
Rx Instructions:
Hold for loose stools
methenamine hippurate 1 gram Tablet
1 g PO BID
oseltamivir 75 mg Capsule
75 mg PO BID Qty: 6 0RF
Interventions
Interventions:
*Risk Screen - Suicide Last Done: 05/14/25 19:33
*General Assessment Last Done: 05/14/25 19:33
*Neglect/Abuse Screening Last Done: 05/14/25 19:33
*ED- Fall Risk Assessment Last Done: 05/14/25 19:33
*ED COVID-19 Vaccine History Last Done: 05/14/25 19:33
Discharge Date and Time
Print Language: DOMINICAN
[2025-05-14 19:48] LABS: Urine Character Clear (Clear)
[2025-05-14 19:53] LABS: Urine Squamous Cell 0-2 /LPF (Few)
[2025-05-14 19:54] LABS: Urine Red Blood Cell 30-40 /HPF (0-2); Urine White Cell 70-80 /HPF (0-5)
[2025-05-14 20:54] VITALS: BP 134/85
[2025-05-14 21:36] VITALS: BP 113/66
[2025-05-14 22:03] VITALS: BP 131/77
[2025-05-14 23:00] VITALS: BP 123/73
[2025-05-15 01:02] VITALS: BP 118/75
== END 2025-05-15 01:28 ==
LOC: EMR 19:11
PROVIDERS: EMERGENCY PHYSICIAN Emergency Medicine; FAMILY PHYSICIAN Internal Medicine
DX: R33.8 Other retention of urine (principal); K64.9 Unspecified hemorrhoids; Z46.6 Encounter for fitting and adjustment of urinary device; K62.5 Hemorrhage of anus and rectum; E03.9 Hypothyroidism, unspecified; N40.1 Benign prostatic hyperplasia with lower urinary tract symptoms
CPT/HCPCS: 99283; 51702; 81003; 81015; 87077; 87086

== ENCOUNTER 2025-05-26 16:57 | Emergency (ER) | payer MEDICARE, SELFPAY ==
[2025-05-26 17:02] VITALS: BP 163/83
[2025-05-26 18:00] VITALS: BP 102/66
--- NOTE | 2025-05-26 18:29 | ED.GENMED ---
History of Present Illness
General
Chief Complaint: Catheter/Tube Problem
Source: patient and ambulance crew
Exam Limitations: none
Time Seen by Provider: 05/26/25 17:02
Nursing documentation reviewed up to this point in time: agreed with
History of Present Illness
History of Present Illness:
Note:
CHIEF COMPLAINT(S)
Urinary catheter blockage
HISTORY OF PRESENT ILLNESS
The patient is a 74-year-old male who presented with a complaint of a urinary catheter blockage. Upon examination, it was noted that the urinary catheter was not draining properly. This required intervention, where the catheter was changed by the
medical team to ensure proper drainage. Post intervention, the catheter appears to be functioning properly, and drainage has improved. The patient seems to be in better condition following the procedure and did not express any additional complaints
or questions when asked.
PHYSICAL EXAM
General: Alert, no acute distress.
Skin: Warm, dry.
Head: Normocephalic, atraumatic.
Neck: Supple, trachea midline.
Eye Ears, nose, mouth and throat: Oral mucosa moist.
Cardiovascular: Normal peripheral perfusion, No edema.
Respiratory: Respirations are non-labored.
Gastrointestinal: Abdomen nondistended. : chapin catheter in place no signs trauma, draining yellow urine
Back: Normal range of motion, Normal alignment.
Musculoskeletal: Normal Range Of Motion, normal strength.
Neurological: Alert and oriented to person, place, time, and situation, No focal neurological deficit observed.
Psychiatric: Cooperative, appropriate mood & affect.
PLAN
The plan includes monitoring the patient to ensure continued proper drainage of the urinary catheter. Ensure that the patient is comfortable and address any further issues if the catheter fails to drain efficiently again.
DIFFERENTIAL DIAGNOSIS
The Differential Diagnosis includes, in no particular order and is not limited to:
1. Urinary tract infection
2. Bladder or kidney stones
3. Urethral stricture
4. Bladder outlet obstruction
5. Catheter malfunction
6. Benign prostatic hyperplasia
7. Urinary retention
8. Bladder atony
9. Trauma to the urinary tract
10. Urinary tract malignancy
CARE-UPDATE
05/26/25 - 18:34
Draining fluid catheter showing clear yellow urine; patient stable for discharge. No complaints from patient at this time.
Disposition:
SUMMARY OF ENCOUNTER
The patient is a 74-year-old male who presented to the emergency department with acute urinary retention due to a urinary catheter malfunction. The catheter was not draining properly, which led to its replacement to ensure correct drainage.
Post-intervention, the new catheter functioned appropriately, improving drainage and alleviating the patients urinary retention symptoms. The patient was comfortable, afebrile, and displayed no signs of a urinary tract infection. No antibiotics were
deemed necessary.
DISPOSITION
Discharge.
PLAN
Monitor urinary catheter function to ensure continued proper drainage. Instruct the patient to follow up with primary care for ongoing management. Return precautions provided.
PATIENT EDUCATION AND COUNSELING
The patient was informed about the importance of monitoring the catheter for proper function and advised on potential signs of complications that would warrant a return to the emergency department.
FOLLOW-UP INSTRUCTIONS
The patient was advised to follow up with his primary care physician and was given return precautions should symptoms recur or worsen.
MEDICATION RECONCILIATION
No new medications were prescribed, and no antibiotics were necessary.
MEDICAL DECISION MAKING
-Complexity of Data Reviewed:
Chronic conditions affecting care include acute urinary retention due to catheter malfunction.
-Data:
Category 1
The examination focused on the assessment of the catheter function and patients overall condition.
-Risk:
Consideration of Admission/Observation: Escalation of care including admission/observation was considered given the complexity and risk of the patients presenting complaint, exam findings, and/or their underlying comorbidities. However, ultimately I
feel the patient is safe for outpatient management with close follow-up. Reasoning: Work-up reassuring, does not reveal any acute life/organ threatening processes, patients symptoms well controlled upon reevaluation, reexamination is reassuring,
vitals are stable, patient agreeable with discharge, reliable for follow-up.
DIAGNOSIS
Acute urinary retention due to urinary catheter malfunction (ICD-10: R33.8).
Past History
Past History
ED Past Medical History: Hypothyroidism and Psychiatric
ED Past Surgical History: None
Social History
Tobacco: Non-smoker
Alcohol: None
Drug: None
Personal: Single
Living: assisted living
Phy Exam
Physical Exam
Physical Exam:
.
Course
Vital Signs
Initial and Last Documented VS:
Initial Vital Signs
BP
163/83
05/26/25 17:02
Last Documented Vital Signs
Temp Pulse Resp BP Pulse Ox
97.8 F 97 19 163/83 99
05/26/25 17:06 05/26/25 17:04 05/26/25 17:04 05/26/25 17:02 05/26/25 18:29
*Pulse Oximetry
SaO2: 99
Oxygen Mode of Delivery: Room air
Patient hypoxic: no
*Critical Care Note
Total Time (30-74mins, 75-104mins- exclusive of procedures): Not Applicable
ED Attending Note
-
Portions of this chart may have been created with voice recognition software.� Occasional wrong word or��sound alike� substitutions may have occurred due to the inherent limitations of voice recognition software.
Discharge Plan
Departure
Patient Disposition: Assisted Living
Date of Disposition: 05/26/25
Time of Disposition: 18:37
Patient with high blood pressure during this ER visit?: Yes
Condition: Good
Discharge Problem:
Complication, blocked Chapin catheter
Instructions: How to Care for Your Chapin Catheter, Male
Prescriptions:
No Action
losartan [Cozaar] 100 MG tablet
100 mg PO DAILY
amlodipine 10 MG tablet
10 mg PO QPM
metoprolol tartrate 50 MG tablet
50 mg PO BID@0800,1600
acetaminophen [Tylenol] 325 mg Tablet
650 mg PO Q4HPRN PRN (Reason: mild pain/fever)
diphenoxylate-atropine [Lomotil] 2.5-0.025 mg Tablet
1 tab PO QIDPRN PRN (Reason: diarrhea)
guaifenesin [Robafen] 100 mg/5 mL Liquid
100 mg PO Q4HPRN PRN (Reason: cough)
triamcinolone acetonide 0.1 % Cream
1 applic TOPICAL BIDPRN PRN (Reason: hand eczema)
levothyroxine [Synthroid] 25 mcg Tablet
25 mcg PO DAILY
ibuprofen 200 mg Tablet
400 mg PO Q6HPRN PRN (Reason: mild pain)
Debrox 6.5 % Drops
4 drp EACH EAR MOWEFR@1999
bicalutamide 50 mg Tablet
50 mg PO DAILY
polyethylene glycol 3350 [Miralax] 17 gram Powder In Packet
17 g PO DAILY
Rx Instructions:
Hold for loose stools
methenamine hippurate 1 gram Tablet
1 g PO BID
oseltamivir 75 mg Capsule
75 mg PO BID Qty: 6 0RF
Referrals:
Chapincito Benson MD [Family Provider, Internal Medicine] - Call in 1-3 days for appt
Interventions
Interventions:
*Risk Screen - Suicide Last Done: 05/26/25 17:13
*General Assessment Last Done: 05/26/25 17:11
*Neglect/Abuse Screening Last Done: 05/26/25 17:11
*ED- Fall Risk Assessment Last Done: 05/26/25 17:11
*ED COVID-19 Vaccine History Last Done: 05/26/25 17:11
*ED Influenza Vaccine History Last Done: 05/26/25 17:11
FI-Vcperd-Xpuggtznan Assessment Last Done: 05/26/25 17:13
ED-Male Genitourinary Assessment Last Done: 05/26/25 17:13
Discharge Date and Time
Print Language: KOSOVAN
[2025-05-26 19:00] VITALS: BP 133/71
[2025-05-26 21:01] VITALS: BP 160/92
[2025-05-26 22:00] VITALS: BP 115/68
== END 2025-05-26 22:53 ==
LOC: EMR 16:57
PROVIDERS: EMERGENCY PHYSICIAN Emergency Medicine; FAMILY PHYSICIAN Internal Medicine
DX: T83.091A Other mechanical complication of indwelling urethral catheter, initial encounter (principal); Y73.8 Miscellaneous gastroenterology and urology devices associated with adverse incidents, not elsewhere classified; E03.9 Hypothyroidism, unspecified
CPT/HCPCS: 99282

== ENCOUNTER 2025-06-09 20:53 | Emergency (ER) | payer MEDICARE, SELFPAY ==
[2025-06-09 20:54] VITALS: BP 176/106
[2025-06-09 20:58] VITALS: BP 176/106
[2025-06-09 21:00] VITALS: BP 174/102
--- NOTE | 2025-06-09 21:05 | ED.GENMED ---
History of Present Illness
General
Chief Complaint: Catheter/Tube Problem
Source: patient, records and ambulance crew
Exam Limitations: other (Developmental delay)
Time Seen by Provider: 06/09/25 21:02
Nursing documentation reviewed up to this point in time: agreed with
History of Present Illness
History of Present Illness:
74-year-old male with a past medical history of developmental delay/MR, schizoaffective disorder, BPH with chronic urinary retention and chronic Mckeon catheter who presents to the emergency room from [facility] where he
resides; he presents via EMS for evaluation of a clogged Mckeon catheter. Of note patient was seen twice in April with a clogged Mckeon catheter requiring exchange. It sounds like this evening staff noted that bag was no longer feeling with
urine which prompted them to call EMS for transport to the hospital. The patient is generally pleasant and says that he feels well denies feeling abdominal pain or back pain.
Past History
Past History
ED Past Medical History: Hypothyroidism and Psychiatric
ED Past Surgical History: None
Social History
Tobacco: Non-smoker
Alcohol: None
Drug: None
Personal: Single
Living: assisted living
Review of Systems
Review of Systems
Unable to obtain full review of systems at this time due to: other (MR/development of the left limits full ROS)
All Other Systems: Not applicable
ABD/GI: Denies abdominal pain
Musculoskeletal: Denies back pain
Phy Exam
Physical Exam
Physical Exam:
General: Awake, alert, pleasant and smiling
Head: Normocephalic, atraumatic
Eyes: Conjunctiva normal
Throat: Airway intact, handling secretions
Neck: Trachea midline
Lungs: Breathing comfortably with no distress
Heart: Regular rate
Abd: Soft, non distended, nontender; his bladder is full/palpable
: 16 German Mckeon catheter noted in place�no urine in bag
Skin: Warm and dry
Extremities: Warm well-perfused
Scores
Heart Failure Risk
Heart Failure Risk Score: Not Applicable
Heart Score for Chest Pain Patients
STEMI patient?: Not applicable
Withdrawal Assessment of Alcohol
Withdrawal Assessment Completed?: Not applicable
Course
Orders/Labs/Results
Orders:
Orders
06/09/25 21:04
Mckeon Placement- Treatment ONCE
Reason for insertion: Chronic Mckeon on Admit
06/09/25 21:07
Lidocaine 2% [Lidocaine Uro-Jet 2%] 1 syringe .ROUTE .STK-MED ONE
06/09/25 21:08
Lidocaine 2% [Lidocaine Uro-Jet 2%] 1 syringe TOPICAL NOW STA
Vital Signs
Initial and Last Documented VS:
Initial Vital Signs
Temp Pulse Resp BP Pulse Ox
36.4 C 100 20 176/106 98
06/09/25 20:54 06/09/25 20:54 06/09/25 20:54 06/09/25 20:54 06/09/25 20:54
Last Documented Vital Signs
Temp Pulse Resp BP Pulse Ox
36.4 C 100 20 174/102 98
06/09/25 20:54 06/09/25 20:54 06/09/25 20:54 06/09/25 21:00 06/09/25 21:15
MDM/Problems Addressed
Differential Diagnosis Includes:
Sediment, hematuria/clot
MDM/Problems Addressed:
74-year-old male with a history of BPH and chronic Mckeon catheter presents to the ER for catheter malfunction. Was seen twice in April for similar. Currently has [address] that is not draining. Will plan to exchange
catheter�will upsize catheter to hopefully prevent recurrence.
Patient tolerated exchange well. Flowing freely with clear urine in the bag. Stable for discharge back to [facility].
Chronic conditions affecting care:
BPH, MR/developmental delay
*Pulse Oximetry
SaO2: 98
Oxygen Mode of Delivery: Room air
Patient hypoxic: no (98%)
*Critical Care Note
Total Time (30-74mins, 75-104mins- exclusive of procedures): Not Applicable
Data Reviewed
Source: patient, records and ambulance crew
ED Attending Note
-
Portions of this chart may have been created with voice recognition software.� Occasional wrong word or��sound alike� substitutions may have occurred due to the inherent limitations of voice recognition software.
Discharge Plan
Departure
Patient Disposition: Home (Routine Discharge)
Date of Disposition: 06/09/25
Time of Disposition: 21:33
Patient with high blood pressure during this ER visit?: Yes
Discharge Problem:
Complication, blocked Mckeon catheter
Instructions: How to Care for Your Mckeon Catheter, Male
Prescriptions:
No Action
losartan [Cozaar] 100 MG tablet
100 mg PO DAILY
amlodipine 10 MG tablet
10 mg PO QPM
metoprolol tartrate 50 MG tablet
50 mg PO BID@0800,1600
acetaminophen [Tylenol] 325 mg Tablet
650 mg PO Q4HPRN PRN (Reason: mild pain/fever)
diphenoxylate-atropine [Lomotil] 2.5-0.025 mg Tablet
1 tab PO QIDPRN PRN (Reason: diarrhea)
guaifenesin [Robafen] 100 mg/5 mL Liquid
100 mg PO Q4HPRN PRN (Reason: cough)
triamcinolone acetonide 0.1 % Cream
1 applic TOPICAL BIDPRN PRN (Reason: hand eczema)
levothyroxine [Synthroid] 25 mcg Tablet
25 mcg PO DAILY
ibuprofen 200 mg Tablet
400 mg PO Q6HPRN PRN (Reason: mild pain)
Debrox 6.5 % Drops
4 drp EACH EAR MOWEFR@1999
bicalutamide 50 mg Tablet
50 mg PO DAILY
polyethylene glycol 3350 [Miralax] 17 gram Powder In Packet
17 g PO DAILY
Rx Instructions:
Hold for loose stools
methenamine hippurate 1 gram Tablet
1 g PO BID
oseltamivir 75 mg Capsule
75 mg PO BID Qty: 6 0RF
Activity Restrictions/Additional Instructions:
Patient should have routine follow-up with his primary doctor and his urologist after his ER visit.
Thank you for visiting the Emergency Department at [facility].
1. Please schedule a follow up appointment as directed. Call first thing tomorrow morning to make an appointment.
2. If indicated, please take your medications as instructed and indicated on discharge paperwork.
3. If any of your symptoms do not improve, or persist, or become more severe within 6-12 hours, please return to the emergency department for further care.
4. Please return to the emergency department if you develop a headache, neck pain/stiffness, fever greater than 100.4F, chest pain, shortness of breath, persistent nausea, vomiting, slurred speech, difficulty walking, numbness/tingling, weakness,
signs of infection or any other symptoms that are worrisome to you.
Please call [phone] if you have any questions.
Interventions
Interventions:
*Risk Screen - Suicide Last Done: 06/09/25 20:54
*General Assessment Last Done: 06/09/25 20:54
*Neglect/Abuse Screening Last Done: 06/09/25 20:54
*ED- Fall Risk Assessment Last Done: 06/09/25 20:54
*ED COVID-19 Vaccine History Last Done: 06/09/25 20:54
*ED Influenza Vaccine History Last Done: 06/09/25 20:54
Discharge Date and Time
Print Language: PERSIAN
[2025-06-09] MEDS: LIDOCAINE URO-JET 2% 1 SYRINGE TOPICAL (21:08)
[2025-06-09 22:00] VITALS: BP 132/82
== END 2025-06-09 22:24 | disposition home or self-care (01) ==
LOC: EMR 20:53
PROVIDERS: EMERGENCY PHYSICIAN Emergency Medicine; FAMILY PHYSICIAN Internal Medicine
DX: T83.091A Other mechanical complication of indwelling urethral catheter, initial encounter (principal); N40.1 Benign prostatic hyperplasia with lower urinary tract symptoms; R33.8 Other retention of urine; F79 Unspecified intellectual disabilities; F25.9 Schizoaffective disorder, unspecified; E03.9 Hypothyroidism, unspecified; Y73.8 Miscellaneous gastroenterology and urology devices associated with adverse incidents, not elsewhere classified
CPT/HCPCS: 99283; 51702

== ENCOUNTER → 2025-07-07 11:32 | Outpatient (REF) | payer MEDICARE, SELFPAY | LOC: RAD 11:32 | PROVIDERS: ATTENDING PHYSICIAN Nurse Practitioner | DX: R33.9 Retention of urine, unspecified (principal); Z97.8 Presence of other specified devices; K59.09 Other constipation; K64.9 Unspecified hemorrhoids | CPT/HCPCS: 74177; Q9967 ==

== ENCOUNTER 2025-07-17 06:16 | Day surgery (SDC) | payer MEDICARE, SELFPAY | END 2025-07-17 14:23 | disposition home or self-care (01) | LOC: GI 06:16 | PROVIDERS: ATTENDING PHYSICIAN Internal Medicine Gastroenterology | DX: Z12.11 Encounter for screening for malignant neoplasm of colon (principal); Q43.8 Other specified congenital malformations of intestine; K62.89 Other specified diseases of anus and rectum; K64.8 Other hemorrhoids; K64.4 Residual hemorrhoidal skin tags; Z86.0101 Personal history of adenomatous and serrated colon polyps | CPT/HCPCS: G0105 ==

== ENCOUNTER → 2025-07-30 10:43 | Outpatient (REF) | payer MEDICARE, SELFPAY ==
[2025-07-30 11:37] LABS: Hematocrit 40.7 % (39.0-52.0); Hemoglobin 13.8 g/dL (13.0-18.0); Mean Corp Hgb Conc. 33.9 g/dL (33.0-37.0); Mean Corpuscular Volume 91.3 fL (80.0-94.0); Platelet Count 314 10^3/uL (130-400); Red Cell Dist. Width 13.4 % (11.5-14.5)
[2025-07-30 16:07] LABS: Blood Urea Nitrogen 18 mg/dl (9-20); Calcium 9.2 mg/dl (8.4-10.2); Carbon Dioxide 26 mmol/L (22-30); Chloride 99 mmol/L (98-107); Glucose 96 mg/dl (70-99); Potassium 4.2 mmol/L (3.5-5.1); Sodium 132 mmol/L (135-145); eGFR > 60.00
== END ==
LOC: SDSPAT 10:43
PROVIDERS: ATTENDING PHYSICIAN Specialist; FAMILY PHYSICIAN Nurse Practitioner
DX: Z01.818 Encounter for other preprocedural examination (principal)
CPT/HCPCS: 36415; 80048; 85027; 86850; 86900; 86901; 93005

== ENCOUNTER 2025-08-06 06:38 | Day surgery (SDC) | payer MEDICARE, SELFPAY ==
[2025-07-30 13:55] VITALS: BMI 28.4
[2025-08-06] VITALS (11 sets, daily range): BP systolic 112–174; BP diastolic 64–98; BMI 28.4
[2025-08-06] MEDS: NEOMYCIN ENEMA 1 BOTTLE RECTAL (07:14)
[2025-08-06] MEDS: NORMOSOL-R/PLASMALYTE-A 1000 IV ×3 (07:18→23:40)
[2025-08-06 07:27] LABS: Urine Character Cloudy (Clear)
[2025-08-06 08:06] LABS: Urine Squamous Cell 0-2 /LPF (Few)
[2025-08-06 08:07] LABS: Urine White Cell 30-40 /HPF (0-5)
[2025-08-06] MEDS: COLACE PO ×2 (11:33→14:42)
[2025-08-06] MEDS: COZAAR PO (11:34)
[2025-08-06] MEDS: COLACE 100 MG PO (15:40)
--- NOTE | 2025-08-06 16:16 | PTCARENOTE ---
PACU report taken by Gaby RN from César RN. Patient arrived to unit from PACU around 1330 post robotic prostatectomy. Vital signs stable. No complaints of pain at this time. All needs met. Pt POA/Cousin at bedside able to help answer admission
questions. Pt at baseline with down syndrome. 18 Fr Mckeon intact and draining dark yellow urine. Plan of care ongoing.
[2025-08-06] MEDS: LOVENOX 40 MG SC (17:38)
[2025-08-06] MEDS: POLYSPORIN OINTMENT 1 APPLIC TOPICAL (21:53)
[2025-08-07] MEDS: SYNTHROID 25 MCG PO (06:25)
[2025-08-07] MEDS: COLACE PO (07:38)
[2025-08-07 07:40] LABS: Hematocrit 31.7 % (39.0-52.0); Hemoglobin 11.0 g/dL (13.0-18.0); Mean Corp Hgb Conc. 34.7 g/dL (33.0-37.0); Mean Corpuscular Volume 89.0 fL (80.0-94.0); Platelet Count 246 10^3/uL (130-400); Red Cell Dist. Width 13.3 % (11.5-14.5)
--- NOTE | 2025-08-07 07:45 | W.PN.URO.CBU ---
Today's Communication / Plan
-
discharge
Assessment / Plan
-
stable
Diagnosis
-
Date of Service: August 07, 2025
-
Patient Diagnosis:
prostate cancer s/p RALRP
Post Op Day:
1
Subjective
-
comfortable
Objective
-
Vital Signs
Temp Pulse Resp BP Pulse Ox
97.5 F 101 18 117/64 95
08/06/25 23:19 08/06/25 23:19 08/06/25 23:19 08/06/25 23:19 08/06/25 23:19
Intake and Output
08/06/25 08/07/25 08/08/25
06:59 06:59 06:59
Intake Total 250 / 250
Output Total 676 / 676
Balance -426 / -426
Intake:
IV fluids (Total) 250 / 250
normosol 250 / 250
Output:
Liquid stool amount
Rectum
Urine, Mckeon 675 / 675
Laboratory Results
08/07/25 07:02
Physical Exam
-
General - well developed, well nourished, no acute distress
Abdomen - soft, non-tender, positive bowel sounds, no distention
Genitalia - Mckeon with pale outflow
Dressings - intact
[2025-08-07] MEDS: LEVAQUIN 500 MG PO (07:49)
[2025-08-07] MEDS: POLYSPORIN OINTMENT 1 APPLIC TOPICAL (07:49)
[2025-08-07] MEDS: COZAAR 100 MG PO (07:49)
[2025-08-07] MEDS: NORMOSOL-R/PLASMALYTE-A 1000 IV (07:50)
[2025-08-07 07:59] VITALS: BP 127/73
[2025-08-07 08:09] LABS: Blood Urea Nitrogen 18 mg/dl (9-20); Calcium 7.9 mg/dl (8.4-10.2); Carbon Dioxide 26 mmol/L (22-30); Chloride 101 mmol/L (98-107); Estimated Creatinine Clearance 73 ml/min; Glucose 120 mg/dl (70-99); Potassium 3.4 mmol/L (3.5-5.1); Sodium 130 mmol/L (135-145); eGFR > 60.00
--- NOTE | 2025-08-07 08:53 | VNURNOTE ---
Home Health Liaison met with patient at bedside to discuss [facility] nurse/therapy, visits, schedule and homebound status. Patient is agreeable and understands that visits at home will be 2-3 x per week to assess and teach medical and chapin
management. Patient is aware that [facility] will contact them for start of care within a few days after discharge from . Provided contact number for [facility]. Checked with pt's primary RN. He lives at [facility]. [facility] is
familiar with facility and will contact them and cousin Svetlana prior to visits. Noted on referral.
[facility] referral completed in [facility].
--- NOTE | 2025-08-07 09:35 | CM ---
Patient admitted late evening yesterday s/p robotic prostatectomy. Pt lives at [facility] in [place], [place].
CM spoke with Madai Lema who advised that Casper is ambulatory with a walker which he has with him; he needs help with his chapin care and will be followed at home with [facility]. Call placed to Svetlana Jackie ([phone]) to notify her of discharge
today. CM will call her to notify her of transport time once known.
Plan: Discharge to [facility] with [facility]. The facility will provide transportation home.
[facility] Report: [phone]
[facility]
[2025-08-07 12:05] VITALS: BP 143/90
== END 2025-08-07 12:29 | disposition home or self-care (01) ==
LOC: SDS 06:38
PROVIDERS: ATTENDING PHYSICIAN Specialist; FAMILY PHYSICIAN Nurse Practitioner
DX: C61 Malignant neoplasm of prostate (principal)
CPT/HCPCS: 55866; 80048; 81003; 81015; 85027; 86900; 86901; 87077; 87086; 87186; 88307; 88309